=== PATIENT | male | born 1985 | race Caucasian/White ===

== ENCOUNTER 2023-09-04 04:21 | Observation (INO) | payer OTHER, SELFPAY ==
[2023-09-03 22:37] VITALS: BP 140/99
[2023-09-03 22:51] LABS: % Basophils 0.4 % (0-2); % Eosinophils 8.1 % (0-6); % Immature Granulocytes 0.6 % (0-0.5); % Neutrophils 43.9 % (42.2-75.2); Absolute Eosinophils 0.4 10^3/uL (0-0.7); Absolute Lymphocytes 1.8 10^3/uL (1.2-3.4); Absolute Monocytes 0.6 10^3/uL (0.1-0.6); Absolute Neutrophils 2.2 10^3/uL (1.4-6.5); Hemoglobin 11.2 g/dL (13.0-18.0); Mean Corp Hgb Conc. 33.9 g/dL (33.0-37.0); Mean Corpuscular Volume 82.5 fL (80.0-94.0); Mean Platelet Volume 8.9 fL (7.4-10.4); Nucleated Red Blood Cells % 0 % (-); Platelet Count 244 10^3/uL (130-400); Red Cell Dist. Width 17.2 % (11.5-14.5); White Blood Cell Count 5.1 10^3/uL (4.8-10.8)
[2023-09-03 23:11] LABS: ALT (SGPT) 37 U/L (0-50); AST (SGOT) 34 U/L (17-59); Albumin 3.5 g/dl (3.5-5.0); Alkaline Phosphatase 288 U/L (38-126); Blood Urea Nitrogen 21 mg/dl (9-20); Carbon Dioxide 24 mmol/L (22-30); Chloride 100 mmol/L (98-107); Glucose 94 mg/dl (70-99); Potassium 3.7 mmol/L (3.5-5.1); Sodium 135 mmol/L (135-145); Total Protein 7.6 g/dl (6.3-8.2); eGFR > 60.00
[2023-09-04] VITALS (9 sets, daily range): BP systolic 99–134; BP diastolic 58–99; BMI 18.6
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
[2023-09-04] MEDS: NICODERM TRANSDERMAL 21 MG TRANSDERM (05:10)
[2023-09-04] MEDS: XANAX 0.5 MG PO (05:11)
[2023-09-04 06:20] LABS: Hematocrit 33.4 % (39.0-52.0); Mean Corp Hgb Conc. 32.9 g/dL (33.0-37.0); Mean Corpuscular Hgb 28.1 pg (27.0-31.0); Mean Corpuscular Volume 85.4 fL (80.0-94.0); Mean Platelet Volume 9.1 fL (7.4-10.4); Platelet Count 205 10^3/uL (130-400); Red Blood Cell Count 3.91 10^6/uL (4.70-6.10); Red Cell Dist. Width 17.1 % (11.5-14.5); White Blood Cell Count 3.9 10^3/uL (4.8-10.8)
[2023-09-04 06:54] LABS: Blood Urea Nitrogen 19 mg/dl (9-20); Calcium 8.7 mg/dl (8.4-10.2); Carbon Dioxide 21 mmol/L (22-30); Chloride 101 mmol/L (98-107); Estimated Creatinine Clearance 70 ml/min; Glucose 138 mg/dl (70-99); HDL Cholesterol 29 mg/dl; LDL Cholesterol, Calculated 105 mg/dl; Potassium 3.5 mmol/L (3.5-5.1); Sodium 134 mmol/L (135-145); Total Cholesterol 159 mg/dl (50-199); Triglyceride 127 mg/dl (10-149); Very Low Density Lipoprotein 25 mg/dl (0-30); eGFR > 60.00
[2023-09-04 07:55] LABS: Urine Albumin 1+ (Neg - Trace); Urine Bilirubin Negative (Negative); Urine Character Slightly Cloudy (Clear); Urine Color Yellow; Urine Glucose Negative (Negative); Urine Ketone Negative (Negative); Urine Leukocyte 2+ (Negative); Urine Nitrite Negative (Negative); Urine Occult Blood 4+ (Negative); Urine Urobilinogen Negative (Neg - 1+); Urine pH 6.5 (5.0-9.0)
[2023-09-04] MEDS: LOW STRENGTH ASPIRIN 81 MG PO (08:11)
[2023-09-04 08:12] LABS: Amphetamines Positive (Negative); Methamphetamines Positive (Negative); Phencyclidine Negative (Negative)
[2023-09-04 08:13] LABS: Barbiturates Negative (Negative); Benzodiazepines Negative (Negative); Buprenorphine Negative (Negative); Cocaine Negative (Negative); Marijuana Positive (Negative); Methadone Negative (Negative); Opiates Negative (Negative); Tricyclic Antidepressants Negative (Negative)
[2023-09-04 08:40] LABS: Fentanyl, Urine Negative (Negative)
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
[2023-09-04 08:51] LABS: Urine Red Blood Cell 70-80 /HPF (0-2)
[2023-09-04 08:52] LABS: Urine White Cell 70-80 /HPF (0-5)
[2023-09-04 08:55] LABS: Urine Bacteria Few (Negative)
--- NOTE | 2023-09-04 09:54 | CON.NEURO ---
Addendum entered and electronically signed by Qasim Hong MD 09/04/23 14:33:
Addendum: Past medical history: Right upper extremity brachial plexopathy (childbirth trauma), acute kidney injury, urogenital gonorrhea, HIV positive, generalized anxiety disorder, transgender, right upper extremity reconstructions x 5,
nephrolithiasis
Social history: Smoker, daily marijuana. Alcohol none. Urine drug screen positive for methamphetamines. Family history: Reviewed and noncontributory
Original Note:
Neuro Assessment/Plan
Assessment
IMPRESSIONS/RECOMMENDATIONS:
Abrupt change in speech
Functional in nature based on variability crescendo decrescendo nature and improvement with distractibility. Additionally, the fact that content declines or improves at times is also suggestive of a functional abnormality
Plan
agree with with speech evaluation
Should the problem continue beyond the next 48 hours, patient may benefit from neuropsychological evaluation and therapy as outpatient
Check blood work for additional metabolic abnormalities
Single left prefrontal lesion on MRI of brain is not consistent with an abnormality producing symptomatology, nor does it appear to be acute
Supportive care for the patient's right upper extremity trauma associated with brachial plexopathy
Supportive care for the patient's bilateral lateral femoral continuous nerve distribution numbness
Will continue to follow as needed. Thank you.
Consultation
Order
Date of Consultation: 09/04/23
Requesting Provider:
Reason for Consult:
Subjective/Objective
Subjective Data
Date of Service: September 04, 2023
Left-handed
Patient was recently discharged from this hospital due to sudden onset acute renal insufficiency and obstructive uropathy. Patient was found to have urogenital gonorrhea and was HIV positive in addition to having positivity for amphetamines and
methamphetamines. Subsequently, patient returned to this hospital's emergency department with acute aphasia beginning 2 days ago. Patient has described difficulty with speech as reverting to that of a second-grader and having reduced ability to
speak full sentences. The problem is described as variable without known modifying factors and without clear associated symptoms. Specifically, there is no difficulty with reading or writing or understanding others. At times expression of speech
is returned to normal, this is unusual however. No prior episodes. The patient reports no recent social stressors.
Objective Data
Vital Signs
Temp Pulse Resp BP Pulse Ox
37.7 C 121 21 114/68 98
09/03/23 22:37 09/04/23 06:00 09/04/23 06:00 09/04/23 06:00 09/04/23 06:00
Lab Results
09/04/23 06:01
09/04/23 06:01
Sodium 134 mmol/L (135-145) L 09/04/23 06:01
Potassium 3.5 mmol/L (3.5-5.1) 09/04/23 06:01
BUN 19 mg/dl (9-20) 09/04/23 06:01
Glucose 138 mg/dl (70-99) H 09/04/23 06:01
Calcium 8.7 mg/dl (8.4-10.2) 09/04/23 06:01
LDL Cholesterol, Calc 105 mg/dl 09/04/23 06:01
Ur Buprenorphine Negative (Negative) 09/04/23 07:39
Patient Allergies
No Known Allergies Allergy (Verified 09/03/23 22:40)
Modified Bergen Score (MRS)
-
MRS Score:
Review of Systems
-
History Source: Patient
All other systems: Reviewed and negative
EENT: Negative Decreased Vision or Swallowing Difficulty
Respiratory: Negative Trouble Breathing
Cardiac: Negative Chest Pain
Abdomen/GI: Negative Incontinence of Stool
Genitourinary: Incontinence
Musculoskeletal: Back Pain; Negative Neck Pain
Neuro: Negative Dizzy or Headache
Physical Exam
-
General: No Apparent Distress and Appears Stated Age
Eyes: OU Absent Papilledema, Round OU, [place] Conjunctivae and No Ptosis
HEENT: Anicteric and Moist Mucous Membranes
Neck: Full Range of Motion
Respiratory: No Dyspnea
Cardiac: No JVD
GI: Non-distended
Extremities: No Clubbing, No Cyanosis, No Edema and Other (Loss of bulk in the right upper extremity approximately less than distally)
Psych: Negative Intact Judgement/Insight
Extended Neurological Exam
Mood & Affect: Anxious and Other (Mildly histrionic)
Attention Span & Concentration: Awake, Alert, Interactive and No Difficulty with 2 Step Request
Memory: Unremarkable
Tremor: Hand Tremor Absent and Head Tremor Absent
Speech: Quantity Unremarkable and Other (Clear words, variably telegraphic, at times childish and agrammatical at times)
Cranial Nerve II: Left Eye: Pupillary Reactivity Unremarkable, Pupillary Size Unremarkable and Visual Bolden Intact
Cranial Nerve II: Right Eye: Pupillary Reactivity Unremarkable, Pupillary Size Unremarkable and Visual Bolden Intact
Cranial Nerves III, IV, : Extraocular Movement: Extraocular Movement Full in all Directions
Cranial Nerve VII: Facial Symmetry: Normal Facial Symmetry
Cranial Nerve VIII: Hearing: Unremarkable Hearing to Normal Conversational Volume
Cranial Nerves IX, X: Palate Movement: Palate Elevation Symmetric
Cranial Nerve XI: Shoulder Shrug: Reduced on Right; Negative Reduced on Left
Cranial Nerve XII: Tongue Protusion: Midline
Muscle Strength, Overall: Otherwise Intact and Other (Unable to extend right upper extremity which maintains position of flexed posture at both elbow and wrist)
Muscle Bulk & Tone: Tone Unremarkable and Other (Other than right upper extremity, bulk is intact)
Pronator Drift: No Drift in Upper Extremities
Deep Tendon Reflexes: Trace Throughout
Touch Sensation: Unremarkable and Double Simultaneous Stimulation Unremarkable
Coordination: [id number] Testing Unremarkable and Unable to Assess (Right upper extremity due to the patient being unable to adequately flex the right upper extremity)
Babinski Sign: Absent Bilaterally
Gait & Station: Up from Seated Without Problem and Wide Based; Negative Up from Lying with Difficulty
Data Reviewed
-
MRI Head: Pending and Image Reviewed
Labs: Report Reviewed
Reviewed with: Nurse, Nurse Practioner and Patient
Old Records: Summarized
Medications
-
Active Medications
Generic Name Dose Route Start Last Admin
Trade Name Freq PRN Reason Stop Dose Admin
Acetaminophen 650 mg 09/04/23 05:57
Acetaminophen 325 Mg Tablet PO 10/02/23 05:56
Q4HPRN PRN
mild pain/GOULD/temp> 100.4F
Aspirin 81 mg 09/04/23 08:00 09/04/23 08:11
Aspirin 81 Mg Chewable Tablet PO 10/02/23 07:59 81 mg
DAILY BEKAH Administration
Enoxaparin Sodium 30 mg 09/04/23 18:00
Enoxaparin Sodium 30 Mg/0.3 Ml Syringe SC 10/02/23 17:59
QPM BEKAH
Lorazepam 1 mg 09/04/23 07:34
Lorazepam 1 Mg Tablet PO 10/02/23 07:33
ONCE PRN PRN
MRI
Home Medications
Medication Instructions Recorded
acetaminophen 500 mg tablet 1,000 mg PO BIDPRN PRN mild pain 09/04/23
(Tylenol Extra Strength)
--- NOTE | 2023-09-04 12:33 | PTOTSP ---
Speech Therapy Assessment
Oropharyngeal function appears intact at the bedside. Speech is fluent/intelligible in conversation however agrammatical with 'telegraphic-like' verbal output. No dysarthria or aphasia. Able to communicate wants/needs/ideas etc.
Recommend continue regular solids/thin liquids. Standard aspiration precautions. Meds oral per pt preference. No further acute STRINGED INSTRUMENT REPAIRER needs. STRINGED INSTRUMENT REPAIRER signing off. Please reconsult as needed
[2023-09-04] MEDS: NICODERM TRANSDERMAL 14 MG TRANSDERM (14:51)
[2023-09-04] MEDS: TYLENOL 650 MG PO (14:51)
[2023-09-04] MEDS: XANAX 0.25 MG PO (15:18)
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
[2023-09-04] MEDS: LOVENOX 30 MG SC (18:39)
--- NOTE | 2023-09-04 20:18 | PTCARENOTE ---
Pt arrived aprox 1430 from ED with two friends/family present. Admission and assessment complete. Pt NIH is 4. Pt deficit is speech/aphasia/Word finding difficultly that comes and goes. Pt using white board when needed. Pt asking for nicotine patch
and xanax to be ordered. Dr Joshua notified. Tylenol given for headache. Pt instructed to ring for assistance.
[2023-09-04] MEDS: ROXICODONE 5 MG PO (21:51)
[2023-09-05] VITALS (7 sets, daily range): BP systolic 112–133; BP diastolic 63–77; BMI 17.8
--- NOTE | 2023-09-05 04:00 | PTCARENOTE ---
Pt with c/o 9/10 pain and swelling in BLLE. From ankle to below knee pts legs are bright red and hot, which is a change. L>R. EXPORT TRAFFIC DEPARTMENT MANAGER aware, Dilaudid ordered. Will continue to follow plan of care.
[2023-09-05] MEDS: DILAUDID 0.5 MG IV (04:54)
[2023-09-05] MEDS: BENADRYL 50 MG PO (08:50)
[2023-09-05] MEDS: ROXICODONE 5 MG PO ×4 (08:50→23:57)
[2023-09-05] MEDS: NICODERM TRANSDERMAL 14 MG TRANSDERM (08:51)
[2023-09-05] MEDS: LOW STRENGTH ASPIRIN 81 MG PO (08:51)
--- NOTE | 2023-09-05 10:40 | CM ---
CM following re: discharge planning.
Reviewed pt's chart, met with pt and pt's friend Rocco at bedside.
Patient is a 38 year old transgender MTF, admitted with OBS status and primary concerns of aphagia. OBS status explained to the pt and her friend, both expressed understanding, OBS letter signed, placed on chart, pt has a copy.
Pt is well known to this CM from previous admission, lives with a friend Rocco in an 1SH, 1 step to enter and 12 steps to get to the basement. Pt reports she can walk but not able to take steps independently and she will need some help at home. Pt
reports she is active with [facility]. During entire interview, pt has been anxiously asked to have services at home and pt was not able to clarify what particular services she needs. CM explained to pt and her friend Rocco regarding [employer]
insurance benefits and they will reach out to [facility] to talk to an assigned correctional case records supervisor to enrol the pt to services that pt needs and pt is eligible.
Pt reports she did decline SNF level of care during last admission and pt stated she is not interested to go to a SNF and again, pt stated she will need services at home. Pt's friend Rocco confirmed he will call [facility] to talk to pt's case
photo lab manager.
Pt stated she had [facility] prior to admission and she would like to resume [facility] upon the discharge.
Pt stated her mother will be here tomorrow and she will ask her mother to meet with me to discuss pt's concerns regarding services.
PCP: Dr. El Leos
Pharmacy: [facility].
D/C plan: home with [facility], family/friend support and to follow up with [employer] insurance regarding community based services. Friend to transport at discharge.
CM will follow with discharge plan updates as hospitalization progresses
[2023-09-05 10:46] LABS: Hematocrit 35.4 % (39.0-52.0); Hemoglobin 11.7 g/dL (13.0-18.0); Mean Corp Hgb Conc. 33.1 g/dL (33.0-37.0); Mean Corpuscular Hgb 28.1 pg (27.0-31.0); Mean Corpuscular Volume 85.1 fL (80.0-94.0); Mean Platelet Volume 9.1 fL (7.4-10.4); Platelet Count 193 10^3/uL (130-400); Red Blood Cell Count 4.16 10^6/uL (4.70-6.10); Red Cell Dist. Width 16.9 % (11.5-14.5); White Blood Cell Count 4.5 10^3/uL (4.8-10.8)
[2023-09-05 11:11] LABS: Blood Urea Nitrogen 13 mg/dl (9-20); Calcium 8.6 mg/dl (8.4-10.2); Carbon Dioxide 26 mmol/L (22-30); Chloride 101 mmol/L (98-107); Estimated Creatinine Clearance 74 ml/min; Glucose 96 mg/dl (70-99); Magnesium 1.9 mg/dl (1.6-2.3); Potassium 3.9 mmol/L (3.5-5.1); Sodium 132 mmol/L (135-145); Uric Acid 8.7 mg/dl (3.5-8.5); eGFR > 60.00
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
[2023-09-05] MEDS: XANAX 0.25 MG PO (12:21)
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
[2023-09-05] MEDS: LOVENOX 30 MG SC (17:21)
[2023-09-05] MEDS: TYLENOL 650 MG PO (23:59)
[2023-09-06 06:58] LABS: Hematocrit 39.1 % (39.0-52.0); Mean Corp Hgb Conc. 33.2 g/dL (33.0-37.0); Mean Corpuscular Hgb 28.1 pg (27.0-31.0); Mean Corpuscular Volume 84.6 fL (80.0-94.0); Mean Platelet Volume 9.7 fL (7.4-10.4); Platelet Count 205 10^3/uL (130-400); Red Blood Cell Count 4.62 10^6/uL (4.70-6.10)
[2023-09-06 07:00] VITALS: BP 97/57
[2023-09-06 07:20] LABS: Blood Urea Nitrogen 15 mg/dl (9-20); Carbon Dioxide 19 mmol/L (22-30); Chloride 104 mmol/L (98-107); Estimated Creatinine Clearance 82 ml/min; Glucose 102 mg/dl (70-99); Potassium 4.7 mmol/L (3.5-5.1); Sodium 131 mmol/L (135-145); eGFR > 60.00
[2023-09-06] MEDS: LOW STRENGTH ASPIRIN 81 MG PO (09:58)
[2023-09-06] MEDS: NICODERM TRANSDERMAL 14 MG TRANSDERM (09:58)
[2023-09-06 11:00] VITALS: BP 104/69
[2023-09-06] MEDS: XANAX 0.25 MG PO ×2 (11:14→21:12)
[2023-09-06] MEDS: ROXICODONE 5 MG PO ×2 (11:14→17:19)
[2023-09-06] MEDS: TYLENOL 650 MG PO ×2 (11:14→21:12)
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
--- NOTE | 2023-09-06 12:49 | PTCARENOTE ---
PT co pain and anxiety. given PRN meds for problem. Pt resting in room at this time
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
--- NOTE | 2023-09-06 14:19 | W.DCSUMMARY ---
Discharge Summary
Discharge Data
Date of Admission: 09/04/23
Date of Discharge: 09/06/23
-
Pending Results: No
Hospital Course
Principal Diagnosis:
Subjective expressive aphasia/garbled speech, likely conversion versus somatization disorder�
HIV positive state
Chronic Diagnoses:�
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
Generalized anxiety disorder
Transgender male to female
Mild Protein Calorie Malnutrition, BMP 18
Consultations:�
Psychiatry
Infectious disease
Procedures:�
None
Clinical course:�
This is a 38 year old male to male to female transgender with past medical history as stated above, who presented with speech difficulty. Intermittently, she would not be able to talk and could only communicate through writing.
Problem 1:
Subjective expressive aphasia/garbled speech, likely conversion versus somatization disorder.
Her UDS was positive for amphetamine/methamphetamine/marijuana.
Her MRI brain showed no acute intracranial abnormality and her CTA was unremarkable.
She was cleared for regular diet per speech evaluation.
She was recommended to follow-up with psychiatry outpatient to address her psychological factors.
Problem 2:
HIV Positive state.
She was seen by ID and was counseled on diagnosis of HIV.
CD4 count, hepatitis serology, RPR were sent, which she can follow-up outpatient with ID.
She has been informed to follow-up with ID closely for HIV treatment plan.
As for the rest of her medical problems, they were stable during her hospital stay.
Discharge Plan
-
Patient Disposition: Home with Home Care
Discharge Diagnosis/Procedures: Expressive Aphasia/garbled speech possible related somatization disorder; HIV Positive
Condition: Fair
Diet: As tolerated
Activity: As tolerated
Driving Restrictions: Not until seen by your Dr
Activity Restrictions/Additional Instructions:
Follow up with ID closely for HIV treatment plan.
Follow up with Psychiatry outpatient to address psychological factors.
Referrals:
El Perez MD [Family Provider] - in less than 1 week
Prescriptions:
Continued
acetaminophen [Tylenol Extra Strength] 500 mg Tablet
1,000 mg PO BIDPRN PRN (Reason: mild pain)
Discharge Orders:
Discharge Patient (As Directed); Ordered 09/06/23
Ordered By: Corina Joshua
--- NOTE | 2023-09-06 15:12 | W.PN.UPDATE ---
Update Note
Progress Note Update
Pt seen for psychiatric clearance for discharge. Today, pt is conversant, not have any difficulties expressing her thoughts or speech problems. Pt states she abruptly lost the ability to speak in mid-conversation, not associated with any specific
stressor. Pt states she has been through much more stressful times in the past. Pt also reports she has had therapy off and on for most of her life and knows her mind. Pt and friend feel they have unanswered questions about her neurological
work-up, and are concerned if pt has return of symptoms at home. She rents a room, has roommate, but is often there alone. Pt states she is still weak/deconditioned from previous extended admission 2 weeks ago, still not able to walk up stairs per
her report. Pt denies significant depression or SI. Pt calm, cooperative, with good eye contact, appropriate affect, with no signs of psychosis. Pt newly diagnosed HIV+ from testing last admission, results after discharge.
Imp: Unspecified anxiety R/o adjustment d/o
Unexplained neurological symptoms
Rec: Pt psychiatrically cleared for discharge, though she continues to have concerns about her unexplained symptoms
[2023-09-06 15:24] VITALS: BP 96/65; PULSE 77; O2SAT 98
--- NOTE | 2023-09-06 15:27 | CM ---
CM following re: discharge planning.
Reviewed pt's chart, met with pt and pt's friend at bedside.
Discharge order noted. Both pt and his friend are aware. Pt expressed his anxious feelings regarding having services at home. Pt advised to call [facility] to request community based services. Also, CM provided pt with [facility] phone number to check on available services pt qualified.
Psychiatrist evaluation noted.
PT evaluation noted - home PT recommended. Pt is aware and pt preferred to resume services with [facility]. A referral to [facility] made.
Please fax discharge instructions to [facility] at [phone].
D/C plan: home with [facility], follow up with [facility] and [facility] for community based services. Mother to transport.
Nom other discharge needs identified.
[2023-09-06 16:11] VITALS: BP 112/74
--- NOTE | 2023-09-06 16:47 | PTCARENOTE ---
PT for DC today. PT verbalized to me yesterday and today that she would like to go to SNF or stay in hospital because she is not back to her baseline yet. Pt is unable to do steps independently and most of her ADL's independently (as per patient).
PT stated she has VN two days a week but that this was not enough . She would use food delivery services to get her food but the food would spoil on the front porch because pt did not have anyone to bring food up to living area and there were many
days she would not have any food to eat. PT cachectic and emaciated appearing at present. PT very concerned about food sources, PT very concerned about needing increased care or assistance with ADLS. PT is requesting to have someone come out
every day to help with light things. PT does not have a ride home so i was unable to discharge pt. was notified and is aware. Charge nurse aware
[2023-09-06] MEDS: LOVENOX 30 MG SC ×2 (17:15→17:20)
[2023-09-06 19:45] VITALS: BP 99/57
[2023-09-06] MEDS: BENADRYL 25 MG PO (21:52)
--- NOTE | 2023-09-06 22:00 | PTCARENOTE ---
Pt complained of itching and redness in bilateral feet. Pt stated, 'This happen sometimes and Benadryl helps'. [employer] made aware, new order provided, see MAR.
[2023-09-06 23:19] VITALS: BP 107/72
[2023-09-07 03:35] VITALS: BP 120/80
[2023-09-07 06:00] VITALS: BMI 17.8
[2023-09-07 06:07] LABS: Hematocrit 32.9 % (39.0-52.0); Hemoglobin 10.9 g/dL (13.0-18.0); Mean Corp Hgb Conc. 33.1 g/dL (33.0-37.0); Mean Corpuscular Hgb 27.5 pg (27.0-31.0); Mean Corpuscular Volume 82.9 fL (80.0-94.0); Mean Platelet Volume 9.3 fL (7.4-10.4); Platelet Count 150 10^3/uL (130-400); Red Blood Cell Count 3.97 10^6/uL (4.70-6.10); Red Cell Dist. Width 16.6 % (11.5-14.5)
[2023-09-07 06:35] LABS: Blood Urea Nitrogen 16 mg/dl (9-20); Calcium 8.6 mg/dl (8.4-10.2); Carbon Dioxide 25 mmol/L (22-30); Chloride 99 mmol/L (98-107); Estimated Creatinine Clearance 82 ml/min; Glucose 100 mg/dl (70-99); Potassium 3.7 mmol/L (3.5-5.1); Sodium 132 mmol/L (135-145); eGFR > 60.00
[2023-09-07 07:00] VITALS: BP 126/80
[2023-09-07] MEDS: NICODERM TRANSDERMAL 14 MG TRANSDERM (09:04)
[2023-09-07] MEDS: LOW STRENGTH ASPIRIN 81 MG PO (09:05)
[2023-09-07 09:51] VITALS: BP 108/74
[2023-09-07 11:00] VITALS: BP 99/62
[2023-09-07] MEDS: ROXICODONE 5 MG PO (11:23)
[2023-09-07] MEDS: TYLENOL 650 MG PO (11:23)
--- NOTE | 2023-09-07 11:47 | CM ---
Addendum entered by Deedee Esparza 09/07/23 14:37:
Bedside meeting with pt, friend/Rocco and mother per her request
Discharge planning and resources reviewed with mother
Provided MH resources for [facility]
Original Note:
CM reviewed chart and noted dc order
Discussion with nursing and OT- pt requesting BIT SHARPENER assistance
Call with Chaparrita/Adrianne- konstantin for service with [facility], requested SW for waiver application and BIT SHARPENER support
Per Chaparrita, authorization for BIT SHARPENER will need to submitted to [place] [facility] after first PT visit
Bedside meeting with pt and friend/Rocco
Rocco resides in [facility] and unable to provide daily assistance
CM explained BIT SHARPENER and SW request through [facility]
[employer] info provided as well as info for waiver services application
Private duty list also provided
Friend/Rocco will assist pt with waiver application and process
VN order requested and on chart
Updated clinicals provided to [facility] via [facility]
Discharge Disposition- home with [facility] via friend/family transport
[facility] Office fax- [phone]
[2023-09-07] MEDS: ATIVAN 1 MG PO (13:42)
[2023-09-07 15:19] LABS: CD4 % of Cells Analyzed 15 % (32-64); CD4 Absolute Count 225 cells/uL (430-1800)
--- NOTE | 2023-09-07 18:14 | W.PN.UPDATE ---
Update Note
Progress Note Update
Patient seen.
Hospital course discussed including patient's mother at the bedside
All questions answered.
Medically stable for discharge
[2023-09-07 19:09] LABS: Hepatitis B Surface Antigen Negative (Negative)
[2023-09-07 19:27] LABS: Hepatitis B Core Ab, Total Negative (Negative); Hepatitis B Surface Antibody Negative; Hepatitis C Antibody Negative (Negative)
[2023-09-07 19:54] LABS: Hepatitis A Antibody, Total Negative (Negative)
[2023-09-08 00:25] LABS: Cryptococcus Antigen Negative (Negative)
[2023-09-08 15:31] LABS: Syphilis/T. pallidum Ab Reflex Negative (Negative)
== END 2023-09-07 16:34 | disposition home health service (06) ==
LOC: 3 WEST ACU 04:21
PROVIDERS: Emergency Medicine; Internal Medicine; ADMITTING PHYSICIAN Hospitalist; ATTENDING PHYSICIAN Internal Medicine; CONSULT PHYSICIAN Internal Medicine Infectious Disease; CONSULT PHYSICIAN Psychiatry & Neurology Psychiatry; EMERGENCY PHYSICIAN Student in an Organized Health Care Education/Training Program; FAMILY PHYSICIAN Family Medicine; OTHER PHYSICIAN Psychiatry & Neurology Neurology
DX: R47.01 Aphasia (principal); Z21 Asymptomatic human immunodeficiency virus [HIV] infection status; F64.0 Transsexualism; F17.200 Nicotine dependence, unspecified, uncomplicated; F41.9 Anxiety disorder, unspecified; E44.1 Mild protein-calorie malnutrition; F32.A Depression, unspecified; F41.1 Generalized anxiety disorder; R64 Cachexia; R62.7 Adult failure to thrive; Z68.1 Body mass index [BMI] 19.9 or less, adult; Z87.440 Personal history of urinary (tract) infections; Z87.442 Personal history of urinary calculi
CPT/HCPCS: 70496; 70551; 73630; 80048; 80053; 80061; 80306; 80307; 81003; 81015; 83735; 84550; 85025; 85027; 86361; 86704; 86706; 86708; 86780; 86803; 87086; 87327; 87340; 92523; 92610; 93005; 97162; 97166; 99291; 99406; G0378; Q9967

== ENCOUNTER 2024-04-24 23:51 | Inpatient (IN) | payer OTHER, SELFPAY ==
[2024-04-24] VITALS (18 sets, daily range): BP systolic 74–128; BP diastolic 38–92; BMI 18.6
--- NOTE | 2024-04-24 19:56 | ED.GENMED ---
History of Present Illness
<Wilma Rebolledo, SAP TRAINER - Last Filed: 04/25/24 13:08>
General
Chief Complaint: Weakness
Source: patient
Exam Limitations: none
Time Seen by Provider: 04/24/24 19:42
History of Present Illness
History of Present Illness:
39 yo male to female transgender presents moaning, feels the need to urinate but can't, 'my bladder, my bladder,' 'pissing blood for 2 days.' Denies CP, SOB, abdominal pain. Feels nauseous but has not vomited.
States he feels the same as he did on admission in August when 'my potassium was high.'
Pt HIV positive, newly diagnosed on admission here 08/2023. States she is not taking any medicine but 'I'm supposed to.'
Hx anxiety/depression RUE brachial plexus.
Past History
<Wilma Rebolledo, SAP TRAINER - Last Filed: 04/25/24 13:08>
Past History
ED Past Medical History: Psychiatric (Anxiety, depression), Other (Gender change, brachial plexus injury since - R) and Other (HIV positive)
ED Past Surgical History: Orthopedic
Social History
Tobacco: Smoker
Alcohol: Occasional
Drug: Former user
Personal: Single
Living: with roommate
Review of Systems
<Wilma Rebolledo, SAP TRAINER - Last Filed: 04/25/24 13:08>
Review of Systems
Allergies reviewed?: Yes
All Other Systems: ROS reviewed and negative except as documented in HPI and ROS
Constitutional: Reports fatigue
Respiratory: Denies trouble breathing
Cardiac: Denies chest pain
ABD/GI: Reports nausea; Denies vomiting
: Reports difficulty voiding and bleeding (states he's peeing blood past 2 days.)
Musculoskeletal: Denies edema
Neurological: Denies headache
Phy Exam
<Wilma Rebolledo, SAP TRAINER - Last Filed: 04/25/24 13:08>
Physical Exam
Physical Exam:
GENERAL: Anxious, moaning. A&Ox3.
CONSTITUTIONAL: Hypothermic 96.0 R
EYES: PERRL, conjunctivae normal
Neck: Supple
ENMT: moist mucus membranes, Pharynx nl, Poor dentition, decaying teeth
RESPIRATORY: Regular respirations, nonlabored, lungs clear. Tachypneic RR 28
CARDIOVASCULAR: Regular rate and rhythm, no murmurs, no rubs.
GI: Soft, nontender, nondistended, normal BS
MUSCULOSKELETAL: Moves with ease. Extremities cool.
SKIN: Cool, pale, dry
PSYCH: Anxious mood and affect. Responding appropriately to questions.
NEUROLOGIC: Awake, alert and oriented. No focal neurological deficits
Course
<Wilma Rebolledo, SAP TRAINER - Last Filed: 04/25/24 13:08>
Orders/Labs/Results
Orders:
Orders
04/24/24 19:49
0.9% Sodium Chloride 1000 ml [Nss] 1,000 ml IV BOLUS
04/24/24 19:55
Electrocardiogram (*1) Urgent
Reason for Study: Tachycardia
EKG- Treatment ONCE
04/24/24 19:57
CD4 Leukocyte Marker Profile [S] Urgent
Complete Blood Count/With Diff Urgent
Lactic Acid Q4H
Comment: CANCEL 2nd LACTIC ACID IF 1st LACTIC ACID IS LESS THAN 2
04/24/24 20:38
Basic Metabolic Panel Urgent
Blood Culture Routine
RUIZ Source: Blood/Venous
Specimen Description:
04/24/24 21:15
0.9% Sodium Chloride 1000 ml [Nss] 1,000 ml IV BOLUS
04/24/24 21:24
Drug Screen, Urine [Urine Drug Abuse Screen] Urgent
Date Specimen was Collected: 04/24/24
Time Specimen was Collected: 21:23
Fentanyl, Urine Urgent
Osmolality, Random Urine Urgent
Date Specimen was Collected: 04/24/24
Time Specimen was Collected: 21:23
Comment: ADD ON
Urinalysis Reflex To Culture Urgent
Date Specimen was Collected: 04/24/24
Time Specimen was Collected: 21:23
Urine Creatinine Urgent
Date Specimen was Collected: 04/24/24
Time Specimen was Collected: 21:23
Comment: ADD ON
Urine Microscopic Reflex Cult Urgent
Urine Protein Urgent
Date Specimen was Collected: 04/24/24
Time Specimen was Collected: 21:23
Urine Sodium Urgent
Date Specimen was Collected: 04/24/24
Time Specimen was Collected: 21:23
Comment: ADD ON
Urine Culture Urgent
RUIZ Source: U
Specimen Description:
Date Specimen was Collected: 04/24/24
Time Specimen was Collected: 21:23
04/24/24 21:37
CR Chest Portable - 1 View Urgent
Comment:
Reason For Exam: sepsis
Reason Study Needs to be Portable: Patient Unstable
04/24/24 21:40
Add On- LAB Urgent
Tests Added?: Mg
Add On- LAB Urgent
Tests Added?: urine drug screen
04/24/24 21:43
Venous Blood Gas Urgent
%Oxygen/Room Air: 21%
04/24/24 21:57
Piperacillin/Tazo 3.375 Gram [Zosyn] 3.375 gram in 50 ml IV NOW
04/24/24 22:00
Dextrose 5%/Water 1000 ml [D5w] 1,000 ml Sodium Bicarbonate 150 meq IV 100 mls/hr
04/24/24 22:10
Magnesium Urgent
Potassium Urgent
04/24/24 22:18
NEPHROLOGY CONSULT Urgent
Consulting Provider: Shonda Spears
Was physician already notified: Yes
Reason for consult: acute renal failure, Na 125, HIV, acidotic
04/24/24 22:21
COVID-19 Antigen Urgent
Source: Nasal Swab
Influenza A+B Rapid Molecular Urgent
RUIZ Source: Nasal Swab
Specimen Description:
04/24/24 22:40
Dextrose 50%-Water [Dextrose 50% Syringe] 12.5 grams IV [id number] PRN
Dextrose 50%-Water [Dextrose 50% Syringe] 25 grams IV NOW STA
Insulin Human Regular [Novolin R] 10 units IV NOW STA
Sodium Bicarbonate 50 meq IV NOW STA
Sodium Zirconium Cyclosilicate [Lokelma] 10 gram PO NOW STA
04/24/24 22:41
Bedside Glucose- Treatment DIRECTED
Bedside Glucose- Treatment ONCE
04/24/24 23:00
Flush (0.9% Sodium Chloride) [Flush (Nss)] See Dose Instructions IV PER PROTOCOL
04/24/24 23:04
Sodium Bicarbonate 50 meq IV NOW STA
Vancomycin [Vancocin] 1,500 mg 0.9% Sodium Chloride [Nss] 20 ml 0.9% Sodium Chloride 250 ml [Nss] 250 ml IV NOW
04/24/24 23:14
Admit/Transfer Patient As Directed
Co-Sign Provider:
Level of Care: Inpatient admission
Assign to:: ICU
Physician / Group: [email or web address]
Diagnosis: Life thretening hyperkalemia, profound Gap met acidosis , HIV, presumed sep
Reason for Hospitalization: Life thretening hyperkalemia, profound Gap met acidosis , HIV, presumed sep
Expected length of stay greater than two midnights?: Yes
ELOS- Estimated Length of Stay in days: 7
I certify the patient meets the requirements for IP care: Yes
04/24/24 23:21
Code Status As Directed
Resuscitation Status: Full Code
04/24/24 23:45
Calcium Gluconate 1 gram/100mL [Calcium Gluconate] 1 gram in 100 ml IV ONCE
04/25/24 00:03
BMP [Basic Metabolic Panel] Urgent
04/25/24 01:57
0.9% Sodium Chloride 1000 ml [Nss] 1,000 ml IV 120 mls/hr
VANCOMYCIN Pharmacy to Dose [VANCOCIN Pharmacy to Dose] 1 each Pharmacy To Prepare [Call Pharmacy To Prepare] 0 ml IV PER PROTOCOL
04/25/24 01:57
Consult Notification Routine
Specialty to Notify: Infectious Disease
Date consulting provider notified: 04/25/24
Time consulting provider notified: 08:55
Notified:: Provider
INFECTIOUS DISEASE CONSULT Routine
Consulting Provider: Xochilt Villatoro
Was physician already notified: No
Reason for consult: sepsis, HIV, profound acid base disorder
Activity As Directed
Activity Level: With Assistance
Intake/ Output As Directed
Frequency: Per unit guidelines
Vital Signs As Directed
Frequency: Per unit guidelines
DX Deep Vein Thrombosis Video Routine
04/25/24 04:00
Piperacillin/Tazo 2.25 Gram [Zosyn] 2.25 grams in 50 ml IV Q6H
04/25/24 04:11
Complete Blood Count/No Diff IN AM
Comprehensive Metabolic Panel IN AM
04/25/24 Breakfast
NPO
Allow oral meds: Yes
Allow clear liquids: Sips of Clears
NPO with Ice Chips: Yes
04/25/24 08:00
Heparin 5,000 units SC Q12
Abnormal Lab Results
04/24/24 04/24/24 04/24/24
19:57 20:38 21:24
WBC 14.9 H 10^3/uL
(4.8-10.8)
RBC 6.36 H 10^6/uL
(4.70-6.10)
MCV 69.7 L fL
(80.0-94.0)
MCH 24.4 L pg
(27.0-31.0)
RDW 16.9 H %
(11.5-14.5)
Plt Count 497 H 10^3/uL
(130-400)
Abs Immat Gran (auto) 0.4 H 10^3/uL
(0-0.05)
Absolute Neuts (auto) 12.0 H 10^3/uL
(1.4-6.5)
Absolute Monos (auto) 0.9 H 10^3/uL
(0.1-0.6)
Immature Gran % 2.6 H %
(0-0.5)
Neutrophils % 80.3 H %
(42.2-75.2)
Lymphocytes % 10.6 L %
(20.5-51.1)
VBG pH
VBG pCO2
VBG pO2
VBG HCO3
Sodium 125 L mmol/L
(135-145)
Potassium
Chloride 94 L mmol/L
(98-107)
Carbon Dioxide < 5 L* mmol/L
(22-30)
BUN 109 H* mg/dl
(9-20)
Creatinine 4.7 H* mg/dL
(0.7-1.3)
Glucose 104 H mg/dl
(70-99)
Magnesium
Urine Ketones Trace A
(Negative)
Ur Occult Blood Reflex 4+ A
(Negative)
Urine Nitrite (Reflex) Positive A
(Negative)
Urine Bilirubin 1+ A
(Negative)
Leukocyte Esterase Rfl 2+ A
(Negative)
Urine RBC >100 A /HPF
(0-2)
Urine Total Protein 512 H mg/dl
(0-12)
Urine Albumin (Reflex) 3+ A
(Neg - Trace)
Ur Amphetamines Screen Positive H
(Negative)
U Methamphetamines Scrn Positive H
(Negative)
U Marijuana (THC) Screen Positive H
(Negative)
POC Glucose
04/24/24 04/24/24 04/24/24
21:43 22:10 23:20
WBC
RBC
MCV
MCH
RDW
Plt Count
Abs Immat Gran (auto)
Absolute Neuts (auto)
Absolute Monos (auto)
Immature Gran %
Neutrophils %
Lymphocytes %
VBG pH 7.26 L
(7.32-7.43)
VBG pCO2 22 L mmHg
(35-48)
VBG pO2 94 H mmHg
(30-50)
VBG HCO3 9.9 L mmol/L
(22-27)
Sodium
Potassium 7.0 H* mmol/L
(3.5-5.1)
Chloride
Carbon Dioxide
BUN
Creatinine
Glucose
Magnesium 2.7 H mg/dl
(1.6-2.3)
Urine Ketones
Ur Occult Blood Reflex
Urine Nitrite (Reflex)
Urine Bilirubin
Leukocyte Esterase Rfl
Urine RBC
Urine Total Protein
Urine Albumin (Reflex)
Ur Amphetamines Screen
U Methamphetamines Scrn
U Marijuana (THC) Screen
POC Glucose 197 H mg/dl
(70-99)
04/24/24 19:57
09/15/24 22:10
Vital Signs
Initial and Last Documented VS:
Initial Vital Signs
Pulse Resp BP Pulse Ox
101 19 79/38 99
04/24/24 19:42 04/24/24 19:42 04/24/24 19:42 04/24/24 19:42
Last Documented Vital Signs
Temp Pulse Resp BP Pulse Ox
98.2 F 97 18 120/68 97
04/25/24 10:55 04/25/24 11:30 04/25/24 11:30 04/25/24 11:00 04/25/24 11:40
<Oz Herzog DO - Last Filed: 04/25/24 01:56>
Orders/Labs/Results
Orders:
Orders
04/24/24 19:49
0.9% Sodium Chloride 1000 ml [Nss] 1,000 ml IV BOLUS
04/24/24 19:55
Electrocardiogram (*1) Urgent
Reason for Study: Tachycardia
EKG- Treatment ONCE
04/24/24 19:57
CD4 Leukocyte Marker Profile [S] Urgent
Complete Blood Count/With Diff Urgent
Lactic Acid Q4H
Comment: CANCEL 2nd LACTIC ACID IF 1st LACTIC ACID IS LESS THAN 2
04/24/24 20:38
Basic Metabolic Panel Urgent
Blood Culture Routine
RUIZ Source: Blood/Venous
Specimen Description:
04/24/24 21:15
0.9% Sodium Chloride 1000 ml [Nss] 1,000 ml IV BOLUS
04/24/24 21:24
Drug Screen, Urine [Urine Drug Abuse Screen] Urgent
Date Specimen was Collected: 04/24/24
Time Specimen was Collected: 21:23
Fentanyl, Urine Urgent
Osmolality, Random Urine Urgent
Date Specimen was Collected: 04/24/24
Time Specimen was Collected: 21:23
Comment: ADD ON
Urinalysis Reflex To Culture Urgent
Date Specimen was Collected: 04/24/24
Time Specimen was Collected: 21:23
Urine Creatinine Urgent
Date Specimen was Collected: 04/24/24
Time Specimen was Collected: 21:23
Comment: ADD ON
Urine Microscopic Reflex Cult Urgent
Urine Protein Urgent
Date Specimen was Collected: 04/24/24
Time Specimen was Collected: 21:23
Urine Sodium Urgent
Date Specimen was Collected: 04/24/24
Time Specimen was Collected: 21:23
Comment: ADD ON
Urine Culture Urgent
RUIZ Source: U
Specimen Description:
Date Specimen was Collected: 04/24/24
Time Specimen was Collected: 21:23
04/24/24 21:37
CR Chest Portable - 1 View Urgent
Comment:
Reason For Exam: sepsis
Reason Study Needs to be Portable: Patient Unstable
04/24/24 21:40
Add On- LAB Urgent
Tests Added?: Mg
Add On- LAB Urgent
Tests Added?: urine drug screen
04/24/24 21:43
Venous Blood Gas Urgent
%Oxygen/Room Air: 21%
04/24/24 21:57
Piperacillin/Tazo 3.375 Gram [Zosyn] 3.375 gram in 50 ml IV NOW
04/24/24 22:00
Dextrose 5%/Water 1000 ml [D5w] 1,000 ml Sodium Bicarbonate 150 meq IV 100 mls/hr
04/24/24 22:10
Magnesium Urgent
Potassium Urgent
04/24/24 22:18
NEPHROLOGY CONSULT Urgent
Consulting Provider: Shonda Spears
Was physician already notified: Yes
Reason for consult: acute renal failure, Na 125, HIV, acidotic
04/24/24 22:21
COVID-19 Antigen Urgent
Source: Nasal Swab
Influenza A+B Rapid Molecular Urgent
RUIZ Source: Nasal Swab
Specimen Description:
04/24/24 22:40
Dextrose 50%-Water [Dextrose 50% Syringe] 12.5 grams IV [id number] PRN
Dextrose 50%-Water [Dextrose 50% Syringe] 25 grams IV NOW STA
Insulin Human Regular [Novolin R] 10 units IV NOW STA
Sodium Bicarbonate 50 meq IV NOW STA
Sodium Zirconium Cyclosilicate [Lokelma] 10 gram PO NOW STA
04/24/24 22:41
Bedside Glucose- Treatment DIRECTED
Bedside Glucose- Treatment ONCE
04/24/24 23:00
Flush (0.9% Sodium Chloride) [Flush (Nss)] See Dose Instructions IV PER PROTOCOL
04/24/24 23:04
Sodium Bicarbonate 50 meq IV NOW STA
Vancomycin [Vancocin] 1,500 mg 0.9% Sodium Chloride [Nss] 20 ml 0.9% Sodium Chloride 250 ml [Nss] 250 ml IV NOW
04/24/24 23:14
Admit/Transfer Patient As Directed
Co-Sign Provider:
Level of Care: Inpatient admission
Assign to:: ICU
Physician / Group: pauliey
Diagnosis: Life thretening hyperkalemia, profound Gap met acidosis , HIV, presumed sep
Reason for Hospitalization: Life thretening hyperkalemia, profound Gap met acidosis , HIV, presumed sep
Expected length of stay greater than two midnights?: Yes
ELOS- Estimated Length of Stay in days: 7
I certify the patient meets the requirements for IP care: Yes
04/24/24 23:21
Code Status As Directed
Resuscitation Status: Full Code
04/24/24 23:45
Calcium Gluconate 1 gram/100mL [Calcium Gluconate] 1 gram in 100 ml IV ONCE
04/25/24 00:03
BMP [Basic Metabolic Panel] Urgent
04/25/24 01:57
0.9% Sodium Chloride 1000 ml [Nss] 1,000 ml IV 120 mls/hr
VANCOMYCIN Pharmacy to Dose [VANCOCIN Pharmacy to Dose] 1 each Pharmacy To Prepare [Call Pharmacy To Prepare] 0 ml IV PER PROTOCOL
04/25/24 01:57
Consult Notification Routine
Specialty to Notify: Infectious Disease
Date consulting provider notified: 04/25/24
Time consulting provider notified: 08:55
Notified:: Provider
INFECTIOUS DISEASE CONSULT Routine
Consulting Provider: Xochilt Villatoro
Was physician already notified: No
Reason for consult: sepsis, HIV, profound acid base disorder
Activity As Directed
Activity Level: With Assistance
Intake/ Output As Directed
Frequency: Per unit guidelines
Vital Signs As Directed
Frequency: Per unit guidelines
DX Deep Vein Thrombosis Video Routine
04/25/24 04:00
Piperacillin/Tazo 2.25 Gram [Zosyn] 2.25 grams in 50 ml IV Q6H
04/25/24 04:11
Complete Blood Count/No Diff IN AM
Comprehensive Metabolic Panel IN AM
04/25/24 Breakfast
NPO
Allow oral meds: Yes
Allow clear liquids: Sips of Clears
NPO with Ice Chips: Yes
04/25/24 08:00
Heparin 5,000 units SC Q12
Abnormal Lab Results
04/24/24 04/24/24 04/24/24
19:57 20:38 21:24
WBC 14.9 H 10^3/uL
(4.8-10.8)
RBC 6.36 H 10^6/uL
(4.70-6.10)
MCV 69.7 L fL
(80.0-94.0)
MCH 24.4 L pg
(27.0-31.0)
RDW 16.9 H %
(11.5-14.5)
Plt Count 497 H 10^3/uL
(130-400)
Abs Immat Gran (auto) 0.4 H 10^3/uL
(0-0.05)
Absolute Neuts (auto) 12.0 H 10^3/uL
(1.4-6.5)
Absolute Monos (auto) 0.9 H 10^3/uL
(0.1-0.6)
Immature Gran % 2.6 H %
(0-0.5)
Neutrophils % 80.3 H %
(42.2-75.2)
Lymphocytes % 10.6 L %
(20.5-51.1)
VBG pH
VBG pCO2
VBG pO2
VBG HCO3
Sodium 125 L mmol/L
(135-145)
Potassium
Chloride 94 L mmol/L
(98-107)
Carbon Dioxide < 5 L* mmol/L
(22-30)
BUN 109 H* mg/dl
(9-20)
Creatinine 4.7 H* mg/dL
(0.7-1.3)
Glucose 104 H mg/dl
(70-99)
Magnesium
Urine Ketones Trace A
(Negative)
Ur Occult Blood Reflex 4+ A
(Negative)
Urine Nitrite (Reflex) Positive A
(Negative)
Urine Bilirubin 1+ A
(Negative)
Leukocyte Esterase Rfl 2+ A
(Negative)
Urine RBC >100 A /HPF
(0-2)
Urine Total Protein 512 H mg/dl
(0-12)
Urine Albumin (Reflex) 3+ A
(Neg - Trace)
Ur Amphetamines Screen Positive H
(Negative)
U Methamphetamines Scrn Positive H
(Negative)
U Marijuana (THC) Screen Positive H
(Negative)
POC Glucose
04/24/24 04/24/24 04/24/24
21:43 22:10 23:20
WBC
RBC
MCV
MCH
RDW
Plt Count
Abs Immat Gran (auto)
Absolute Neuts (auto)
Absolute Monos (auto)
Immature Gran %
Neutrophils %
Lymphocytes %
VBG pH 7.26 L
(7.32-7.43)
VBG pCO2 22 L mmHg
(35-48)
VBG pO2 94 H mmHg
(30-50)
VBG HCO3 9.9 L mmol/L
(22-27)
Sodium
Potassium 7.0 H* mmol/L
(3.5-5.1)
Chloride
Carbon Dioxide
BUN
Creatinine
Glucose
Magnesium 2.7 H mg/dl
(1.6-2.3)
Urine Ketones
Ur Occult Blood Reflex
Urine Nitrite (Reflex)
Urine Bilirubin
Leukocyte Esterase Rfl
Urine RBC
Urine Total Protein
Urine Albumin (Reflex)
Ur Amphetamines Screen
U Methamphetamines Scrn
U Marijuana (THC) Screen
POC Glucose 197 H mg/dl
(70-99)
04/24/24 19:57
04/24/24 22:10
Vital Signs
Initial and Last Documented VS:
Initial Vital Signs
Pulse Resp BP Pulse Ox
101 19 79/38 99
04/24/24 19:42 04/24/24 19:42 04/24/24 19:42 04/24/24 19:42
Last Documented Vital Signs
Temp Pulse Resp BP Pulse Ox
98.2 F 97 18 120/68 97
04/25/24 10:55 04/25/24 11:30 04/25/24 11:30 04/25/24 11:00 04/25/24 11:40
<Wilma Rebolledo SAP TRAINER - Last Filed: 04/25/24 13:08>
MDM/Problems Addressed
Differential Diagnosis Includes:
Dehydration, electrolyte imbalance, malnutrition,
Sepsis
MDM/Problems Addressed:
39 yo male to female transgender presents moaning, feels the need to urinate but can't, 'my bladder, my bladder,' 'pissing blood for 2 days.' Denies CP, SOB, abdominal pain. Feels nauseous but has not vomited.
Pt HIV positive, newly diagnosed on admission here 08/2023. States she is not taking any medicine but 'I'm supposed to.'
Hx anxiety/depression RUE brachial plexus.
Temp 96.0 R bear hugger warmer ordered
BP 79/48 IVF's infusing (pt cachectic BMI 18.5)may partially explain low BP
HR 110 sinus on monitor
Bladder scan: 34 cc
9:10 p.m.
Pt more calm, resting
EKG NSR
CBC WBC 14.9
CMP: Multiple abnormalities, case discussed with Dr. Herzog
Blood was hemolyzed so needed to redraw for K+
Pt remains stable, calm, sister at bedside.
10:15 p.m.
K+ hemolyzed for 3rd time, pending
VSS, pt mentating normally
Plan: Admit: Sepsis/UTI, metabolic acidosis, HIV noncompliant with meds, acute renal failure
Antibiotics, Bicarb drip infusing
Hospitalist and Nephrology notified of admission.
10:30 K+ 7.0 Insulin and D5 ordered
Critical care statement: A total of 40 minutes of critical care time was provided for this patient. This includes management of unstable vital signs, evaluation of the patient at bedside, reviewing the patient's pertinent medical records, discussion
with consultants, review of old EKGs and review of pertinent medical records. This time with separate from time utilized to perform the aforementioned documented procedures
Chronic conditions affecting care: Immunosuppressed (HIV ) and Psychiatric illness
<Wilma Rebolledo SAP TRAINER - Last Filed: 04/25/24 13:08>
*EKG
EKG Intrepretation Date: 04/24/24
Interpretation: abnormal
[place]: normal axis
Interval: normal interval
QRS Pattern: normal QRS
<Oz Herzog DO - Last Filed: 04/25/24 01:56>
*EKG
Interpreted by ED Provider?: Yes
Interpretation: abnormal
Rate: normal
Rhythm: sinus
Ischemia: non-specific ST changes
*Regional Account Executive Interpretation
Rate: normal
Interpretation: normal
Rhythm: sinus
*Critical Care Note
Total Time (30-74mins, 75-104mins- exclusive of procedures): 60-minute
Data Reviewed
Review of Other/Old Records Reveals: Labs (Prior labs show that the patient did have acute renal failure in the past) and Discharge Summary (Previous discharge summary reviewed, patient was diagnosed with HIV)
Source: patient and family
ED Attending Note
<Wilma Rebolledo SAP TRAINER - Last Filed: 04/25/24 13:08>
-
Portions of this chart may have been created with voice recognition software.� Occasional wrong word or��sound alike� substitutions may have occurred due to the inherent limitations of voice recognition software.
<Oz Herzog DO - Last Filed: 04/25/24 01:56>
ED Attending Note
Patient seen and examined by attending physician: Yes
I performed the substantive portion of visit, reviewed & personally made and approve the management plan that is documented in note by myself or BORA.: Yes
ED Attending Note:
39-year-old male to female transgender who presents with difficulty voiding and hematuria. The patient arrives cachectic and pale. Patient reports feeling just profoundly weak. Symptoms been ongoing for more than a week. Does have a history of
HIV. Admits he has not been taking his medications. Exam: Cachectic, atrophy of the right upper extremity noted. Pale. Blood pressure 101 systolic on my exam. Pulse ox 90%. Assessment and plan: Acute metabolic acidosis. Acute renal failure.
Acute hyperkalemia. Hyperkalemia meds given. Bicarb added to fluids. Case was discussed with nephrology. Nephrology did see the patient at bedside. Hemodynamically patient did respond to fluids. Also was little bit hypothermic so given history
of HIV that is untreated, treat with broad-spectrum antibiotics. Admit to ICU
Discharge Plan
Departure
Patient Disposition: Admit
Date of Disposition: 04/24/24
Time of Disposition: 22:13
Admit to: ICU
Presentation/result/management discussed w/ accepting MD/DO: Hospitalist
Condition: Critical
Discharge Problem:
Acute renal failure, Acute hyponatremia, Acute hyperkalemia, Metabolic acidosis, Severe sepsis
Interventions
Interventions:
*Risk Screen - Suicide Last Done: 04/25/24 02:13
*General Assessment Last Done: 04/24/24 20:01
*Neglect/Abuse Screening Last Done: 04/24/24 20:01
ED- Fall Risk Assessment Last Done: 04/24/24 23:45
*ED COVID-19 Vaccine History Last Done: 04/25/24 02:13
*Nursing Disposition Last Done: 04/25/24 00:30
ED- Cardiac Assessment Last Done: 04/24/24 23:45
ED-Male Genitourinary Assessment Last Done: 04/24/24 23:45
ED- Neurological Assessment Last Done: 04/24/24 23:45
ED- Pulmonary Assessment Last Done: 04/24/24 23:45
Discharge Date and Time
Discharge Date/Time: 04/25/24 00:30
[2024-04-24] MEDS: NSS 1000 IV ×2 (20:00→21:18)
[2024-04-24 20:04] LABS: % Basophils 0.3 % (0-2); % Eosinophils 0.1 % (0-6); % Immature Granulocytes 2.6 % (0-0.5); % Lymphocytes 10.6 % (20.5-51.1); % Monocytes 6.1 % (1.7-9.3); % Neutrophils 80.3 % (42.2-75.2); Absolute Immature Granulocytes 0.4 10^3/uL (0-0.05); Absolute Lymphocytes 1.6 10^3/uL (1.2-3.4); Absolute Monocytes 0.9 10^3/uL (0.1-0.6); Hematocrit 44.3 % (39.0-52.0); Hemoglobin 15.5 g/dL (13.0-18.0); Mean Corpuscular Hgb 24.4 pg (27.0-31.0); Mean Corpuscular Volume 69.7 fL (80.0-94.0); Mean Platelet Volume 9.2 fL (7.4-10.4); Nucleated Red Blood Cells % 0 % (-); Platelet Count 497 10^3/uL (130-400); Red Blood Cell Count 6.36 10^6/uL (4.70-6.10); Red Cell Dist. Width 16.9 % (11.5-14.5); White Blood Cell Count 14.9 10^3/uL (4.8-10.8)
[2024-04-24 21:10] LABS: Calcium 9.5 mg/dl (8.4-10.2); Chloride 94 mmol/L (98-107); Estimated Creatinine Clearance 16 ml/min; Glucose 104 mg/dl (70-99); Sodium 125 mmol/L (135-145); eGFR 15.43
[2024-04-24 21:11] LABS: Blood Urea Nitrogen 109 mg/dl (9-20); Carbon Dioxide < 5 mmol/L (22-30)
[2024-04-24 21:38] LABS: Urine Albumin 3+ (Neg - Trace); Urine Bilirubin 1+ (Negative); Urine Character Very Cloudy (Clear); Urine Color Brown; Urine Glucose Negative (Negative); Urine Ketone Trace (Negative); Urine Leukocyte 2+ (Negative); Urine Nitrite Positive (Negative); Urine Occult Blood 4+ (Negative); Urine Specific Gravity 1.015 (<1.030); Urine Urobilinogen Negative (Neg - 1+)
[2024-04-24 21:45] LABS: Urine Red Blood Cell >100 /HPF (0-2)
[2024-04-24 21:46] LABS: Amphetamines Positive (Negative); Barbiturates Negative (Negative); Benzodiazepines Negative (Negative); Buprenorphine Negative (Negative); Cocaine Negative (Negative); Marijuana Positive (Negative); Methadone Negative (Negative); Methamphetamines Positive (Negative); Opiates Negative (Negative); Phencyclidine Negative (Negative); Tricyclic Antidepressants Negative (Negative)
[2024-04-24 21:49] LABS: Venous Blood Gas B.E. -15.1 mmol/L (-4 to +4); Venous Blood Gas HCO3 9.9 mmol/L (22-27); Venous Blood Gas O2 Sat % 98.7 %; Venous Blood Gas pCO2 22 mmHg (35-48); Venous Blood Gas pH 7.26 (7.32-7.43); Venous Blood Gas pO2 94 mmHg (30-50)
[2024-04-24 22:00] LABS: Fentanyl, Urine Negative (Negative)
[2024-04-24 22:01] LABS: Lactic Acid 1.4 mmol/L (0.7-2.0)
[2024-04-24] MEDS: SODIUM BICARBONATE 1150 MEQ IV (22:18)
[2024-04-24] MEDS: ZOSYN 50 IV (22:19)
--- NOTE | 2024-04-24 22:26 | HPS.HSE ---
Family Physician
-
Family Physician: El Perez
Chief Complaint
-
unable to urinate
History of Present Illness
38 transgender female with PMH significant for recent hospitalization for severe ALVA / urogenital gonorrhea, POS HIV dxed since Aug 2023, non compliance with meds, HX ssupected of conversion disorder , HX anxiety and depression and RUE brachial
plexopathy , BMI 18.5 HX protein calorie malnutrition seen at ER difficulty voiding with hematuria.
- reports nausea but no vomiting
- denied diarrhea
@ER on arrival
Temp 96.0 R placed bear hugger warmer
BP 79/48 IVF's infusing BP improved to 100/60
HR 110 sinus on monitor
Bladder scan: 34 cc
Medical History
Past Medical History
Past Medical History: Reports Other
Additional Past Medical History:
RUE Brachial Plexopathy (injury during childbirth)
Anxiety / Depression
Transgender
HIV Positive (newly diagnosed)
Past Surgical History: Reports Other
Additional Past Surgical History:
RUE Reconstructions x 5
Patient denies any other surgeries
Social History
Tobacco: Smoker (Current every day smoker. )
Alcohol: None
Drug: Marijuana (Daily)
Family History
Family History: Other (Mother: Asthma)
Allergies / Home Medications
Allergies reflects when Allergies were last updated in [employer].
Home Medications with original date entered in [facility]
Allergy/Medication List:
Allergies
Allergy/AdvReac Type Severity Reaction Status Date / Time
No Known Allergies Allergy Verified 09/03/23 22:40
Home Medications
No Meds [No Current Medications] 08/11/23
Review of Systems
-
Unable to obtain full review of systems at this time due to: Acuity
Physical Exam
Vital Signs
Vital Signs
Temp Pulse Resp BP Pulse Ox
96.5 F L 90 15 99/59 98
04/24/24 20:30 04/24/24 21:45 04/24/24 21:45 04/24/24 21:45 04/24/24 21:45
Physical Exam
General: Conversant (slow cogntive speed )
HEENT: NormoCephalic, Anicteric and Other (dry OM )
Respiratory: Clear
Cardiac: S1/S2, Tachycardia and Other (hypotensive )
GI: Soft, Non Tender, Non Distended and Normal Bowel Sounds
Skin: Dry
Psych: Other (slow cognitve speed )
Laboratory Results
-
04/24/24 19:57
Laboratory Results
Lactic Acid 1.4 mmol/L (0.7-2.0) 04/24/24 19:57
Total Bilirubin Cancelled 04/24/24 20:38
AST Cancelled 04/24/24 20:38
ALT Cancelled 04/24/24 20:38
Alkaline Phosphatase Cancelled 04/24/24 20:38
Data Reviewed
-
Lab Data: Labs Reviewed by me
Old Records: Reviewed
Impression/Plan
-
Vital Signs
Temp Pulse Resp BP Pulse Ox
96.5 F L 90 15 99/59 98
04/24/24 20:30 04/24/24 21:45 04/24/24 21:45 04/24/24 21:45 04/24/24 21:45
Laboratory Tests
09/07/23 04/24/24 04/24/24
05:40 19:57 20:38
WBC 14.9 H
Hgb 10.9 L 15.5
Plt Count 150 D 497 H
Sodium 132 L 125 L
Chloride 99 94 L
Carbon Dioxide 25 < 5 L*
BUN 109 H*
Creatinine 0.9 4.7 H*
Laboratory Tests
04/24/24
21:43
VBG pH 7.26 L
VBG pCO2 22 L
VBG pO2 94 H
VBG HCO3 9.9 L
Data upon admission
WBC 14.9 Hgb 15.5 Plt 497 suspect hemoconcentrated
K 7.0
ABG: primary MA, secondary resp alkalosis and NG MA
Hi gap MA @26
Last hospitalist admission: Date of Admission: 09/04/23 - Date of Discharge: 09/06/23
Principal Diagnosis:
Subjective expressive aphasia/garbled speech, likely conversion versus somatization disorder
HIV positive state
Chronic Diagnoses:
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
Generalized anxiety disorder
Transgender male to female
Mild Protein Calorie Malnutrition, BMP 18
ASSESSMENT & PLAN
Hypothermic Hypotensive ; presume sepsis with sock , severe dehydration
Profound hyperkalemia
Hyponatremia
Anuric ALVA
Constellation of acid- base disorder as below:
Hi gap MA @26
ABG: primary MA, secondary resp alkalosis and NG MA
Polysubstance abuse - UDS POS Amphetamines, Meth, THC
HIV Positive : Non compliance with HIV Meds
Unknown recent CD 4 count
Protein Calorie Malnutrition with BMP 18
Continue to encourage adequate nutrition.
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
Generalized anxiety disorder
transgender male to female
Mentation:
- Septic bolus with NS wide open - if no resposne to initiate pressor
- ER Tx of hyperkalemia - Insilin and D50, Na Zircnium ,
- Bicarb gtt
- Empiric vanco and zosyn
- BMP q3H
- BCx sent
- Urgent renal consulted - case I dw Renal will need uregent HD -
- Urgent IR consult for HD cath - sent priorty text and lefet message on Tel ( Per ICU BACTERIOLOGY RESEARCH ASSISTANT Currently IR attd is doing urgent embolization at lab for other patient )
- Consultant Education consult
- ID consult
Prognosis guarded : Shaun discussed case with brother and sister at bed side ref to life threatening multiple medical emergency. They acknowledged.
DVT Prophylaxis: SQH
Code Status: Full
ICU
Shaun godfrey ER attd, ICU BACTERIOLOGY RESEARCH ASSISTANT and Cellophane Tester
Shaun godfrey brother an sister at bed side
Total Critical Care Time___75 __ minutes.
I was immediately available to the patient and staff. I personally examined, reviewed labs, diagnostic images/reports, interpretations, treatment plans, discussed patient care with other providers and family or caregivers (if patient is unable to
make decisions), entered orders as appropriate and documented the medical record.
[2024-04-24 22:39] LABS: Magnesium 2.7 mg/dl (1.6-2.3)
[2024-04-24 22:45] LABS: COVID-19 Antigen Negative (Negative)
[2024-04-24] MEDS: NOVOLIN R 10 UNITS IV (22:48)
[2024-04-24] MEDS: LOKELMA 10 GRAM PO (22:50)
[2024-04-24] MEDS: SODIUM BICARBONATE 50 MEQ IV ×2 (22:51→23:34)
[2024-04-24] MEDS: DEXTROSE 50% SYRINGE 25 GRAMS IV (22:51)
[2024-04-24 23:21] LABS: Glucose - Point of Care 197 mg/dl (70-99)
--- NOTE | 2024-04-24 23:49 | W.CON.NEPH ---
Consultation
-
Date/Time Consultation Requested: 04/24/242217
Date/Time Consultation Performed: 04/24/24 2330
Requesting Provider: Tha Pinto
Performing Provider: Shonda Zaldivar
Reason for Consultation: ALVA, hyperkalemia, severe acidosis
Medical History
-
Chief Complaint: unable to urinate
History of Present Illness:
38 transgender female (male to female) who had hospitalization for severe ALVA, high K, k stones, bilat hydro / urogenital gonorrhea, POS HIV dxed in Aug 2023,he is non compliance with meds, HX suspected of conversion disorder , HX anxiety and
depression and RUE brachial plexopathy , BMI 18.5 HX protein calorie malnutrition who presented with unable to urinate. Pt reports not feeling for weeks and slowly decreased oral intake for last 2weeks with nausea. Difficulty urination started days
ago, also notes hematuria. He denies any fever, cough, cp, sob or abd pain or constipation or diarrhea or vomiting. Denies rash. History is limited from pt. on arrival ER he was hypothermic Temp 96.0, BP 79/48, tachy. He received 2lit of NS bolus
with improved BPs to 120s. labs noted Na 125, k 7, bicarb <5, cr 4.7, BUN 109, L acid 1.4. He is able to urinate with difficulty through condom catheter, has ~200cc now, bladder scan initially was 34cc. Denies use of NSAIDs. UDS +ve amphetamine,
methamphetamine, marijuana. He supposed to see from last admit not sure if that happened.
Past Medical History
RUE Brachial Plexopathy (injury during childbirth)
Anxiety / Depression
Transgender(male to female)
HIV Positive (newly diagnosed in Aug not compliant with meds)
Nephrolithiasis
Past Surgical History: Other (RUE Reconstructions x 5)
Social History
Tobacco: Smoker
Alcohol: Occasional (none on last 4m)
Drug: Marijuana
Family History
no h/o CKD mother side
Allergies / Home Medications
Allergy/AdvReac Type Severity Reaction Status Date / Time
No Known Allergies Allergy Verified 09/03/23 22:40
�Medication �Instructions �Recorded �Confirmed �Type
acetaminophen 500 mg tablet 1,000 mg PO BIDPRN PRN mild pain 09/04/23 04/24/24 History
(Tylenol Extra Strength)
bictegravir 50 mg-emtricitabine 1 tab PO DAILY 04/24/24 04/24/24 History
200 mg-tenofovir alafenam 25 mg
tablet (Biktarvy)
Review of Systems
-
Difficult historian , all complete tried to reviewed with pt and found negative other than stated in HPI
All other systems: Negative unless noted
Physical Exam
Vital Signs
Vital Signs
Temp Pulse Resp BP Pulse Ox
97.8 F 90 15 99/59 98
04/24/24 23:32 04/24/24 21:45 04/24/24 21:45 04/24/24 21:45 04/24/24 21:45
Lab Results
WBC 14.9 10^3/uL (4.8-10.8) H 04/24/24 19:57
RBC 6.36 10^6/uL (4.70-6.10) H 04/24/24 19:57
Hgb 15.5 g/dL (13.0-18.0) 04/24/24 19:57
Hct 44.3 % (39.0-52.0) 04/24/24 19:57
Plt Count 497 10^3/uL (130-400) H 04/24/24 19:57
Sodium 125 mmol/L (135-145) L 04/24/24 20:38
Potassium 7.0 mmol/L (3.5-5.1) H* 04/24/24 22:10
Chloride 94 mmol/L (98-107) L 04/24/24 20:38
Carbon Dioxide < 5 mmol/L (22-30) L* 04/24/24 20:38
BUN 109 mg/dl (9-20) H* 04/24/24 20:38
Creatinine 4.7 mg/dL (0.7-1.3) H* 04/24/24 20:38
eGFR 15.43 04/24/24 20:38
Glucose 104 mg/dl (70-99) H 04/24/24 20:38
Calcium 9.5 mg/dl (8.4-10.2) 04/24/24 20:38
Albumin Cancelled 04/24/24 20:38
CXR:
FINDINGS: A single frontal radiograph of the chest was obtained at 10:03 PM on 04/24/2024.
The cardiac silhouette and pulmonary vasculature are radiographically within normal limits.
There are no acute mediastinal abnormalities.
There are no acute pleural or parenchymal abnormalities.
IMPRESSION:
No active cardiopulmonary disease.
EKG:
Test Reason : TACHY
Blood Pressure : / mmHG
Vent. Rate : 091 BPM Atrial Rate : 091 BPM
P-R Int : 146 ms QRS Dur : 106 ms
QT Int : 352 ms P-R-T Axes : 063 074 058 degrees
QTc Int : 432 ms
NORMAL SINUS RHYTHM
MINIMAL VOLTAGE CRITERIA FOR LVH, MAY BE NORMAL VARIANT ( Skyler product )
NONSPECIFIC ST ABNORMALITY
ABNORMAL ECG
WHEN COMPARED WITH ECG OF 04-SEP-2023 03:42,
PREMATURE VENTRICULAR COMPLEXES ARE NO LONGER PRESENT
QRS DURATION HAS INCREASED
Physical Exam
General: Awake, Alert, Oriented, AOx3 and Other (sunken eyes, cachetic)
HEENT: EOMI, Conjunctivae Clear, Facial Symmetry, Neck Supple and No JVD
Respiratory: Clear, Normal Excursion and Nonlabored Respirations
Cardiac: S1/S2 and Regular Rate/Rhythm
Breast: Deferred by me
Abdomen: Soft, Nontender and Nondistended
Musculoskeletal: No Cyanosis and No Edema
Skin: No Rash and Dry
Neuro: Nonfocal/Grossly Intact
Psych: Appropriate
Data Reviewed
-
Radiology: Report Reviewed by me
Labs: Labs Reviewed by me, Discussed with Physician, Discussed with Patient and Discussed with Family
Assessment/Plan
-
IMP:
Hypothermic Hypotensive - presume sepsis
Life threatening hyperkalemia
ALVA-baseline cr 0.9
Hyponatremia
Hi gap MA @26
Acidemia from met acidosis
Polysubstance abuse - UDS POS Amphetamines, Meth, THC
HIV Positive : Non compliance with HIV Meds
Protein Calorie Malnutrition with BMP 18
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
Generalized anxiety disorder
transgender male to female
Nephrolithiasis on CT in 08/2023
h/o U retention
Plan:
A/w FTT, unable to urinate
life threatening hyperkalemia k at 7, s/p temporization with insulin,calcium, bicarb and LOkelma
expect correction of acidosis and vol repletion likely help to improve k as well , cont iv bicarb fluids
no EKG changes so far
repeat labs now , if k remains high
most likely need HD tonight, IR notified to get temp catheter by hospitalist team, appt help
severe ALVA-suspect prerenal progressed to ATN phase specially anuric on arrival and low BPs, vol depletion for several days
UA-hematuria, not sure if infection, check U lytes and U PCR
given HIV status differential is broad, check renal US with h/o k stone
Note she had very similar presentation in Aug too
she is making some urine s/p IVF, brownish urine noted 200cc in condom cath,
known h/o retention need bladder scan f/u, low threshold for dumont
hyponatremia from hypovolemia, check U and S osmo
Empiric abx per primary, dose renally-ID consulted
hb is high likely hemoconcentrated, MCV low, check fe studies
she is critically ill
d/w pt and family(sister and brother) at bedside in detail
CC time spent 60min
d/w primary and nursing
[2024-04-25] VITALS (23 sets, daily range): BP systolic 99–140; BP diastolic 44–106; BMI 19.6
[2024-04-25] MEDS: CALCIUM GLUCONATE 100 IV (00:16)
[2024-04-25] MEDS: VERSED 2 MG IV (00:25)
[2024-04-25 00:34] LABS: Blood Urea Nitrogen 107 mg/dl (9-20); Calcium 8.1 mg/dl (8.4-10.2); Carbon Dioxide 14 mmol/L (22-30); Chloride 96 mmol/L (98-107); Glucose 118 mg/dl (70-99); Potassium 5.2 mmol/L (3.5-5.1); Sodium 129 mmol/L (135-145)
[2024-04-25 00:44] LABS: Estimated Creatinine Clearance 21 ml/min; eGFR 21.24
--- NOTE | 2024-04-25 00:55 | W.PN.UPDATE ---
Update Note
Progress Note Update
repeat labs noted k 5.2
improving acidosis
no emergent need of HD tonight
keep HD catheter for now
labs in am
d/w family at bedside in detail
d/w frame gate mortiser operator
[2024-04-25 01:00] LABS: Osmolality Serum 299 mOsm/kg (275-300)
[2024-04-25 01:00] LABS: Osmolality Urine 353 mOsm/kg (300-900)
[2024-04-25 01:19] LABS: Urine Sodium 90 mmol/L (30-90)
[2024-04-25] MEDS: VANCOCIN 300 ML IV (01:21)
[2024-04-25] MEDS: VANCOCIN 300 MG IV (01:21)
[2024-04-25 01:32] LABS: Urine Protein 512 mg/dl (0-12)
--- NOTE | 2024-04-25 02:39 | PTCARENOTE ---
Pt received from ED via stretcher to room 3365. Ox3, withdrawn. SR to sinus tach with frequent PVCs. Weak but palpable pulses. Breath sounds diminished t/o, RA--99%. Hypoactive bowel sounds, unknown last BM. CC in place, urine yellow/cloudy--c/o
burning/pressure sensation w/ initial urination. Skin appears pale/dry, intact. PIV sites flushed and patent. Safe environment maintained, call gaviria within reach.
[2024-04-25] MEDS: SODIUM BICARBONATE 1150 MEQ IV ×2 (04:10→15:02)
[2024-04-25 04:36] LABS: ALT (SGPT) 19 U/L (0-50); AST (SGOT) 17 U/L (17-59); Albumin 3.3 g/dl (3.5-5.0); Alkaline Phosphatase 268 U/L (38-126); Blood Urea Nitrogen 96 mg/dl (9-20); Calcium 8.3 mg/dl (8.4-10.2); Carbon Dioxide 17 mmol/L (22-30); Chloride 95 mmol/L (98-107); Estimated Creatinine Clearance 24 ml/min; Glucose 148 mg/dl (70-99); Iron 139 ug/dl (49-181); Lactic Acid 0.7 mmol/L (0.7-2.0); Magnesium 2.2 mg/dl (1.6-2.3); Phosphorus 5.5 mg/dl (2.5-4.5); Potassium 4.8 mmol/L (3.5-5.1); Sodium 127 mmol/L (135-145); eGFR 24.47
[2024-04-25 04:38] LABS: INR 1.17; PT 14.7 Sec (11.4-14.6)
[2024-04-25] MEDS: ZOSYN 50 IV ×4 (04:38→22:41)
[2024-04-25 04:39] LABS: APTT 30.7 Sec (23.4-35.0)
[2024-04-25 04:40] LABS: Hematocrit 31.4 % (39.0-52.0); Hemoglobin 11.2 g/dL (13.0-18.0); Mean Corp Hgb Conc. 35.7 g/dL (33.0-37.0); Mean Corpuscular Hgb 24.5 pg (27.0-31.0); Mean Corpuscular Volume 68.6 fL (80.0-94.0); Mean Platelet Volume 8.9 fL (7.4-10.4); Platelet Count 289 10^3/uL (130-400); Red Blood Cell Count 4.58 10^6/uL (4.70-6.10); Red Cell Dist. Width 15.7 % (11.5-14.5); White Blood Cell Count 6.6 10^3/uL (4.8-10.8)
[2024-04-25 04:45] LABS: Percent Saturation 51 % (20-50); Total Iron Binding Capacity 271 ug/dl (261-462)
--- NOTE | 2024-04-25 06:02 | W.PN.SEPSIS ---
Sepsis
Vital Signs
Temp Pulse Resp BP Pulse Ox
97.8 F 93 15 125/44 99
04/24/24 23:32 04/25/24 05:45 04/25/24 05:45 04/25/24 05:00 04/25/24 05:45
Physical Exam
Physical Exam:
A focused exam was performed after fluid resuscitation.
Capillary Refill
Bilateral Upper Extremity:
Kyung Time: Less than 3 sec
Bilateral Lower Extremity:
Kyung Time: Less than 3 sec
Pulse Evaluation
Bilateral Radial:
Pulse Evaluation: Present
Bilateral Dorsalis Pedis:
Pulse Evaluation: Present
--- NOTE | 2024-04-25 06:07 | PTCARENOTE ---
Reassessed, unchanged. Safe environment maintained, call gaviria within reach.
--- NOTE | 2024-04-25 07:56 | CON.INTV ---
Consultation
Consultation Request
Date/Time Consultation Requested: 04/25/2024-7 AM
Date/Time Consultation Performed: 04/25/2024-7 AM
Requesting Provider: Hospitalist
Performing Provider: Dr. Mccabe
Reason for Consultation: Sepsis
Medical History
-
Chief Complaint: Sepsis
History of Present Illness:
38-year-old transgender female with a history of HIV, noncompliance, STDs, suspected conversion disorder, anxiety, depression, and calorie malnutrition who presented with hypothermia and hypotension suspected of sepsis-physicist nuclear consulted for
sepsis/critical care management 04/25/2024. Patient is feeling improved. Offers no complaints of shortness of breath, chest pain, abdominal pain, nausea, blood pressure improved, not requiring pressors, or lower extremity swelling.
Past Medical History
Past Medical History: None (Transgender-biological male transitioning to female. HIV diagnosed August 2023-noncompliant with meds. Suspected conversion disorder. Anxiety. Depression. Right upper extremity brachial plexopathy status post 5
previous surgeries. Protein calorie malnutrition.)
Social History
Tobacco: Smoker
Alcohol: None
Drug: Marijuana
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
Environmental Exposures: Unknown tuberculosis exposure
Family History
Family History: Reviewed & Not Pertinent
Allergies / Home Medications
Allergies
Allergy/AdvReac Type Severity Reaction Status Date / Time
No Known Allergies Allergy Verified 09/03/23 22:40
Home Medications
�Medication �Instructions �Recorded �Confirmed �Last Taken �Type
acetaminophen 500 mg tablet 1,000 mg PO BIDPRN PRN mild pain 09/04/23 04/24/24 5 Days Ago History
(Tylenol Extra Strength) ~08/30/23
bictegravir 50 mg-emtricitabine 1 tab PO DAILY 04/24/24 04/24/24 3 Weeks Ago History
200 mg-tenofovir alafenam 25 mg ~04/03/24
tablet (Biktarvy)
Review of Systems
-
Unable to Obtain full review of systems at this time due to: Other (Per HPI)
Vitals / Labs / Diagnostic Testing
Vital Signs
Temp Pulse Resp BP Pulse Ox
98.3 F 101 18 124/64 97
04/25/24 07:27 04/25/24 07:45 04/25/24 07:45 04/25/24 07:00 04/25/24 07:45
Lab Data
04/25/24 04:11
04/25/24 04:11
Laboratory Results
04/25/24
04:11
PT 14.7 H
INR 1.17
APTT 30.7
Microbiology
04/24/24 22:21 Nasal Swab Influenza Types A & B (YUMIKO) - Final
Negative for Influenza A & B, NAAT
Negative results must be combined with clinical observations
and patient history.
Nucleic Acid Amplification test (NAAT)performed on the
[employer] platform.
Diagnostic Testing:
Physical Exam
-
Exam:
Well-nourished and well-developed in no apparent distress, cachexia
HEENT-atraumatic, normocephalic, temporal wasting
Neck-supple, no JVD, no bruit
Heart-regular rate and rhythm-no murmurs, rubs or gallops
Chest-clear to auscultation, no wheezes, crackles
Back-no tenderness
Abdomen-soft, nontender, nondistended, no hepatosplenomegaly
Extremities-no cyanosis, clubbing, edema and good peripheral pulses
Integument-intact, no rashes, lesions or ecchymosis
Neurology-alert and oriented, nonfocal motor and sensory exam
Assessment
-
38-year-old transgender female with a history of HIV, noncompliance, STDs, suspected conversion disorder, anxiety, depression, and calorie malnutrition who presented with hypothermia and hypotension suspected of sepsis-physicist nuclear consulted for
sepsis/critical care management 04/25/2024.
Hypothermia/hypotension-suspect sepsis with shock
Hyperkalemia
ALVA
Hyponatremia
Metabolic acidosis
Polysubstance abuse-marijuana, amphetamines, meth
Mild anemia-hemoglobin 11.2
HIV-noncompliant with meds
Mild hyperglycemia
Conditions present prior to admission:
Transgender-biological male transitioning to female.
HIV diagnosed August 2023-noncompliant with meds.
Suspected conversion disorder.
Anxiety.
Depression.
Right upper extremity brachial plexopathy status post 5 previous surgeries.
Protein calorie malnutrition.
Polysubstance abuse
History ALVA/hydronephrosis/renal calculi
Plan
Admit patient to medical intensive care unit for persistent hypotension despite fluid resuscitation requiring pressors
Supplement oxygen as needed
High flow oxygen if needed
BiPAP if necessary
Intubate and mechanically ventilate if necessary
Aspiration precautions
Nebulizers if needed
Obtain cultures
Empiric antibiotics
Infectious disease consultation-briefly reviewed with Dr. Cullen
Patient HIV positive noncompliant with medications
Monitor leukocytosis
Fluid resuscitation with 30 mL/kg crystalloid-preferably lactated ringer-(less ALVA) with subsequent boluses as needed
Monitor lactate
Follow CVP if possible
Attempt noninvasive bedside tissue perfusion evaluation to see if fluid bolus responsive
Measure pulse pressure and stroke volume variation if patient on ventilator, passively breathing without arrhythmia and with temporary large tidal volume ventilation and if > 13% then likely fluid bolus responsive
If patient active then consider measuring bedside leg lift for 3 minutes and if cardiac output increases or if there is a rise of 2-4 on end-tidal CO2 then fluid bolus
If bedside ultrasound available then measure IVC diameter variation to evaluate for fluid bolus responsiveness
Begin pressors as needed for MAP goal of 65-Norepinephrine first, then Vasopressin and consider Angiotensin II if continues to be hypotensive
Consider methylene blue if available-specific inhibitor of induced nitric oxide synthase iNOS and its downstream enzyme soluble guanylate cyclase-noninferiority study shown to reduce time to vasopressor discontinuation, decreased ICU length of stay,
hospital stay but no change in mortality-published Critical Care 10/20/2022
If persistently hypotensive then consider checking random cortisol-hydrocortisone if random less than 3, if 3-15 then consider ACTH stimulation test
If persistently hyperthermic then correcting hyperthermia can decrease pressor requirements, increased chances of reversal of shock and decrease mortality
Nephrology evaluation
Monitor renal function
Replace electrolytes
Life-threatening hyperkalemia correction
Follow hemoglobin
Transfuse if needed
Monitor blood sugar
Insulin supplementation if needed
DVT prophylaxis
Early nutrition if possible
Early mobilization/bedside range of motion
If able to be weaned off pressors then transfer out of ICU-call pulmonary if respiratory issues arise
Critical care statement: A total of 50 minutes of critical care time was provided for this patient today. This includes management of unstable vital signs, evaluation of the patient at bedside, reviewing the patient's pertinent medical records
including radiographs, pressor management, microbiology, laboratory evaluations, and discussion with primary team, consultants, pharmacy, nutrition, physical therapy, case management, charge nurse, critical care nursing, and respiratory therapy.
Diagnostic data:
Chest x-ray 04/24/2024-NAD
Chest x-ray 04/25/2024-satisfactory position of bedside nontunneled catheter, no pneumothorax
Renal ultrasound 04/25/2024-moderate hydronephrosis unchanged compared to CT 08/12/2023
Data Reviewed
-
EKG: Report reviewed by me
Radiology: Report reviewed by me
Labs: Labs reviewed by me
Old Records: Reviewed
Critical Care Time (in minutes): 45
--- NOTE | 2024-04-25 08:00 | PTCARENOTE ---
Received patient from night shift supervisor. patient is sleepy, arousable, AAOx3. on room air, 97%. Sinus rhythm on monitor. Patient is cachectic appearing, states they are very tired, rates generalized achiness at 6:10. Patient is NPO, condom cath on
for urine. SCDs on. Will review orders. sterile water infusing into left forearm.
[2024-04-25] MEDS: HEPARIN 5000 UNITS SC ×2 (08:02→20:37)
--- NOTE | 2024-04-25 08:27 | W.PN.HOSP.TC ---
Addendum entered and electronically signed by Rishabh Story MD 04/25/24 10:56:
I saw and evaluated the patient. I reviewed the resident�s note and agree with findings and plan as documented in the resident�s note.
Denies acute complaints including CP/SOB
Pt seen and examined with nurse Padma Craig present at bedside:
NAD, awake and alert, appears chronically ill
RRR, normal S1/S2
CTAB
+BS/soft/NT/ND
Acute kidney injury with anion gap metabolic acidosis:
-Continue sodium bicarb drip
-Creatinine improving
-Hyperkalemia now resolved
-Acidosis improving
Severe protein calorie malnutrition
HIV POS: Noncompliant with HAART. Will not resume Biktarvy until renal fxn improves
Illicit drug abuse, counseled on cessation of illicit drug use
Total time spent on today's encounter was 50 minutes which included time spent in counseling the patient/family regarding diagnosis and treatment plan as listed above, goals of care, and symptom management. Case was discussed with nursing staff,
specialists, and care coordinators/case management. All labs and imaging personally reviewed by me. Remainder the time spent in detailed review of previous records, lab data, imaging, and other medical provider documentation.
Original Note:
Today's Communication/Plan
-
C/w IVF + bicarb for Na correction/MA. C/w IV Abx.
Assessment / Plan
Assessment / Plan
39 yo transgender (Male to female) with a past medical history of HIV (diagnosed 2023, medication noncompliance), history of brachial plexus injury (childbirth), anxiety, depression who presented to the ED with severe nausea and hematuria.
#Severe Sepsis, uncertain etiology
- Hypothermia, elevated WBC count, hypotension requiring IVF
- BP improved s/p fluid bolus, did not require pressors
- Blood cultures pending. Urine cultures pending. On IV Vanc/Zosyn
- Pressures stable today, normothermic, WBC downtrending.
- Denies recent IV drug use, though admits was a heroine user 17 years ago.
- continue to monitor cultures as above. C/w IV Abx for now
#Acute Hyperkalemia (resolved)
- 7.0 on admission, s/p 10U insulin D5W in ED, calcium gluconate, Lokelma
- Improved this morning to 4.8
#Acute Renal failure, possibly secondary to HIV Associated nephropathy vs. Sepsis/Pre-renal
- Severe hypotension/sepsis
- UA (+) for blood, protein, BUN/Cr 96/3.2
- Urine output via Ferris is approx. 1000cc this AM.
#Metabolic Acidosis with respiratory compensation
- Anion Gap 26, now 15 s/p IVF, sodium bicarb.
- Nephro following
- C/w bicarb drip
#Acute Hyponatremia
- 125 on admission, 127 now.
- IV 1/2 NS w/ 150meq sodium bicarb. Will keep to a correction rate of 4-6 mmol/24 hours. Repeat BMP in the AM.
#HIV, noncompliant with medication
- CD4 count pending
- Hold home Biktarvy in the setting of ALVA
#Protein Calorie malnutrition - BMI <18
- Advanced regular diet
#Anxiety
#Depression
#Transgender
- Psych consult place; will observe recommendations
#Polysubstance Use
- (+) For Amphetamine/Methamphetamine/MJ
#Dispo - Med/Surg w/ Tele
#DVT PPx - Heparin SC
#Diet - NPO
#Code Status - Full Code
Anticipated Discharge: 24 - 48 hours
Subjective/Interval History
-
Seen in the AM. Patient is tired but able to respond coherently to questions. She is complaining mostly of nausea, hunger and painful hiccups. There were no acute events overnight.
Objective Data
-
Labs:
Laboratory Results
04/24/24 04/24/24 04/24/24
20:38 21:43 22:10
WBC
Hgb
Hct
Plt Count
PT
INR
APTT
Sodium 125 L
Potassium Cancelled 7.0 H*
Chloride 94 L
Carbon Dioxide < 5 L*
BUN 109 H*
Creatinine 4.7 H*
Glucose 104 H
Calcium 9.5
Total Bilirubin Cancelled
AST Cancelled
ALT Cancelled
Alkaline Phosphatase Cancelled
04/25/24 04/25/24 04/25/24
00:03 00:07 04:11
WBC 6.6
Hgb 11.2 L D
Hct 31.4 L
Plt Count 289 D
PT 14.7 H
INR 1.17
APTT 30.7
Sodium 129 L Cancelled 127 L
Potassium 5.2 H D Cancelled 4.8
Chloride 96 L Cancelled 95 L
Carbon Dioxide 14 L* Cancelled 17 L
BUN 107 H* Cancelled 96 H
Creatinine 3.6 H Cancelled 3.2 H
Glucose 118 H Cancelled 148 H
Calcium 8.1 L Cancelled 8.3 L
Total Bilirubin 1.0
AST 17
ALT 19
Alkaline Phosphatase 268 H
Vital Signs:
Vital Signs
Temp Pulse Resp BP Pulse Ox
98.3 F 101 18 124/64 97
04/25/24 07:27 04/25/24 07:45 04/25/24 07:45 04/25/24 07:00 04/25/24 07:45
I&O
04/24/24 04/25/24 04/26/24
06:59 06:59 06:59
Intake Total 550 / 650 100 / 100
Output Total 750 / 750
Balance -200 / -100 100 / 100
Review of Systems
-
History Source: Patient
All other systems: Reviewed and negative
Constitutional: Reports Fatigue; Denies Fever
EENT: Reports No Symptoms Reported
Respiratory: Denies Cough, Trouble Breathing or Pleurisy
Cardiac: Denies Chest Pain, Diaphoresis, Palpitations or Syncope
Abdomen/GI: Reports Nausea and Other (Hiccups); Denies Abdominal Pain, Vomiting, Diarrhea, Constipated, Bloody Stools or Hematemesis
Breast: Reports N/A
Genitourinary: Reports Bleeding; Denies Dysuria, Frequency or Urgency
Musculoskeletal: Reports No Symptoms
Skin: Reports No Symptoms
Neuro: Reports No Symptoms
Endocrine: Reports No Symptoms
Hematologic / Lymphatic: Reports No Symptoms
Allergy / Immunology: Reports No Symptoms
Physical Exam
-
General: Appears Chronically Ill and Other (Anorexic, not quite cachectic )
HEENT: Normocephalic, Atraumatic, Moist Mucous Membranes, Anicteric, [place] Conjunctivae, PERRLA and Good Dentition (Poor dentition)
Respiratory: Clear to Auscultation
Cardiac: S1/S2 and Irregular Rhythm; Negative Murmur or Tachycardic
Breast: N/A
GI: Soft, Nontender and Nondistended; Negative Normal Bowel Sounds (hypoactive)
Rectal: Deferred by Provider
Genito-urinary: No Costovertebral Tender and Ferris (approx. 1000cc of dark yellow urine)
Musculoskeletal: No Clubbing, No Cyanosis and No Edema
Skin: Warm, Dry, Normal Turgor and IV Access / Catheter Site (R IJ dialysis catheter)
Neuro: Awake, Alert and Oriented
Psych: Anxious
--- NOTE | 2024-04-25 09:13 | W.PN.NEPH.PH ---
Today's Communication / Plan
-
IVF
Assessment/Plan
-
IMP:
Hypothermic Hypotensive - presume sepsis
Life threatening hyperkalemia
ALVA-baseline cr 0.9
Hyponatremia
Hi gap MA @26
Acidemia from met acidosis
Polysubstance abuse - UDS POS Amphetamines, Meth, THC
HIV Positive : Non compliance with HIV Meds
Protein Calorie Malnutrition with BMP 18
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
Generalized anxiety disorder
transgender male to female
Nephrolithiasis on CT in 08/2023
h/o U retention
Plan:
follow BMP
continue IVF with bicarb today
no biktarcy (tenofovir) with ALVA for now
follow UOP
no samsca today suspect she is still hypovolemic
broad spectrum abx, await cx results
critical care time 31 minutes
-
-
Date of Service: April 25, 2024
CC / HPI / ROS
-
Chief Complaint:
ALVA
History of Present Illness:
ALVA/Cr down to 3.2
BUN down to 96
acidosis better 17 with bicarb IVF
BP stable
K normal
nonoliguric condom catheter
critically ill in ICU
Review of Systems:
no CP/SOB
Labs
-
Labs:
WBC 6.6 10^3/uL (4.8-10.8) 04/25/24 04:11
RBC 4.58 10^6/uL (4.70-6.10) L 04/25/24 04:11
Hgb 11.2 g/dL (13.0-18.0) L D 04/25/24 04:11
Hct 31.4 % (39.0-52.0) L 04/25/24 04:11
Plt Count 289 10^3/uL (130-400) D 04/25/24 04:11
Sodium 127 mmol/L (135-145) L 04/25/24 04:11
Potassium 4.8 mmol/L (3.5-5.1) 04/25/24 04:11
Chloride 95 mmol/L (98-107) L 04/25/24 04:11
Carbon Dioxide 17 mmol/L (22-30) L 04/25/24 04:11
BUN 96 mg/dl (9-20) H 04/25/24 04:11
Creatinine 3.2 mg/dL (0.7-1.3) H 04/25/24 04:11
eGFR 24.47 04/25/24 04:11
Glucose 148 mg/dl (70-99) H 04/25/24 04:11
Calcium 8.3 mg/dl (8.4-10.2) L 04/25/24 04:11
Phosphorus 5.5 mg/dl (2.5-4.5) H 04/25/24 04:11
Albumin 3.3 g/dl (3.5-5.0) L 04/25/24 04:11
Physical Exam
-
Vital Signs:
Vital Signs
Temp Pulse Resp BP Pulse Ox
98.3 F 98 18 105/52 97
04/25/24 07:27 04/25/24 09:00 04/25/24 09:00 04/25/24 09:00 04/25/24 09:00
Cardiovascular:: Regular rate and rhythm
Respiratory:: Bilateral: Coarse
Lung Excursion:: Normal
Abdomen:: Nontender and Soft
Bowel Sounds:: Normal
Extremity Edema:: None: Bilateral:
[2024-04-25 10:13] LABS: Vancomycin Random 23.7 ug/ml
--- NOTE | 2024-04-25 10:34 | PHA.VAN.IN ---
Assessment
- Assessment
Renal Function: Appears elevated from baseline
Minimum Temperature: 96.5 04/24/24 20:30
AUC Dosing Plan
- Empiric Dosing
Initial / Loading Dose: 1500 mg 04/25/24 01:21 (26 mg/kg load dose)
Maintenance Regimen: dose by random level
- Monitoring
Random level ordered AM 04/25/24 ( =23.7 at 09:43 ~ 8 hours post 1500 mg dose)
Plan
- Plan
Maintenance Regimen: dose by random level - no dose today
Monitoring: repeat random level AM 04/26 AM
Pharmacokinetics Vancomycin I
- -
Patient Age: 39
Patient Sex: Male (transgender male to female)
Vancomycin Day #: 1
Indication: Bacteremia
Requesting Provider: Day
Height / Weight:
Height 5 ft 7 in
Actual Weight 56.8 kg
Pertinent Past Medical History: BMI <20; ALVA w/ urogenital gonorrhea; HIV
- Vital Signs / Lab Results
Temp Pulse Resp BP Pulse Ox
98.3 F 98 18 105/52 97
04/25/24 07:27 04/25/24 09:00 04/25/24 09:00 04/25/24 09:00 04/25/24 09:00
Lab Results - Hematology
04/24/24 04/25/24
19:57 04:11
WBC 14.9 H 6.6
Lab Results - Chemistry
04/24/24 04/24/24 04/25/24
19:57 20:38 00:03
BUN Cancelled 109 H* 107 H*
Creatinine Cancelled 4.7 H* 3.6 H
Estimated Creat Clear Cancelled 16 21
Albumin Cancelled Cancelled
04/25/24 04/25/24
00:07 04:11
BUN Cancelled 96 H
Creatinine Cancelled 3.2 H
Estimated Creat Clear Cancelled 24
Albumin 3.3 L
04/24/24 04/24/24 04/25/24
19:57 22:49 00:00
Lactic Acid 1.4 Cancelled Cancelled
04/25/24 04/25/24 04/25/24
00:07 01:57 04:11
Lactic Acid 2.0 Cancelled 0.7
04/25/24 04/25/24 04/25/24
05:57 08:00 09:57
Lactic Acid Cancelled Cancelled Cancelled
04/25/24 04/25/24 04/25/24
12:00 13:57 16:00
Lactic Acid Cancelled Cancelled Cancelled
04/25/24
20:00
Lactic Acid Cancelled
Lab Results - Urine
04/24/24
21:24
Urine Nitrite (Reflex) Positive A
Leukocyte Esterase Rfl 2+ A
Urine WBC (Reflex)
Microbiology Results
04/24/24 22:21 Influenza Types A & B (YUMIKO) - Final
Nasal Swab Negative for Influenza A & B, NAAT
Negative results must be combined with clinical observations
and patient history.
Nucleic Acid Amplification test (NAAT)performed on the
[employer] platform.
--- NOTE | 2024-04-25 10:53 | CON.ID ---
Consultation
-
Date/Time Consultation Requested: 04/25/2024 01:57
Date/Time Consultation Performed: 04/25/2024 1053
Requesting Provider: Dr. Robin
Performing Provider: Dr. Cullen
Reason for Consultation: Clinical sepsis; Hx HIV
Chief Complaint / Past History
History of Present Illness
Chad Mercer is a trans female with a significant past medical history of HIV, being evaluated at the request of Dr. Robin regarding clinical sepsis and HIV. History is obtained from chart review, along with patient interview.
The patient is known to me from the outpatient setting where she has been followed for underlying HIV. She was last seen on 01/27/2024. At that point in time she reported doing well and was compliant with her medication regimen of Biktarvy.
She presented to the emergency room on 04/24 secondary to generalized feeling of unwell, along with reported urinary urgency. She reported hematuria for the prior 2 days, but upon further questioning notes that she has been feeling ill for the past
2 weeks with decreasing p.o. intake. BP in the ER was 79/48 and white count was noted to be elevated. Additionally, she was found to have a potassium of 7.0 and found to be in ALVA with a creatinine of 4.7.
Today labs have improved to some degree. She reports occasional fevers. She was rather somnolent during the interview, and little further history was obtainable. She does report that she has been noncompliant with her HIV medications. She
currently lives with a roommate who is not usually there and she has found it increasingly difficult to live on her own.
HIV synopsis
HIV Dx Date : 08/12/2023
CD4 David : 225 (09/05/23)
OI Hx : None
OI Prophylaxis : None
Known Resistance : None
HLA B*5701 : Negative
ART Hx :
Biktarvy (2023 - Present)
Past History
Additional Past Medical History:
HIV
Right upper extremity brachial plexopathy (from childbirth)
Anxiety/depression
Additional Past Surgical History:
RUE Reconstructions x 5
Allergy History:
No Known Allergies Allergy (Verified 09/03/23 22:40)
Medications Reviewed: Yes
Current Antibiotics:
Vancomycin
Zosyn
Biktarvy
Social History
Tobacco: Smoker
Alcohol: Occasional
Drug: Narcotics
Personal: Partner
Living: With Roomate
Employment: Not Employed
Family History
Family History: Not Pertinent
Review of Systems
Vital Signs
Temp Pulse Resp BP Pulse Ox
98.3 F 98 18 105/52 97
04/25/24 07:27 04/25/24 09:00 04/25/24 09:00 04/25/24 09:00 04/25/24 09:00
Physical Exam
Physical Exam
Constitutional: Acutely Ill, Chronically Ill, Non-toxic and Cachetic (mild)
Head: Normocephalic
Eyes: Pupils Equal, Pupils Round, No Conjunctival Hemorrhage and Sclera Anicteric
Oral: Poor Dentition, No Thrush and No Ulcers
Cardiovascular: Regular Rate and S1/S2; Negative S3/S4
Pulmonary: Clear; Negative Wheezes, Rales or Rhonchi
Gastrointestinal: Soft, Non Tender, Non Distended and Normal Bowel Sounds
Genito-Urinary: Ferrsi (Condom cath) and Clear Urine; Negative CVA Tenderness, Turbid Urine or Hematuria
Extremities: Negative Edema, Clubbing or Cyanosis
Skin: Warm and Dry; Negative Rash or Jaundice
Neurological: Other (Somnolent but arousable.); Negative Meningeal Signs
Psychological: Calm
Lines: HD Cath (Right IJ)
Lab / Diagnostic Study Results
04/25/24 04:11
04/25/24 04:11
Abs Immat Gran (auto) 0.4 10^3/uL (0-0.05) H 04/24/24 19:57
Absolute Neuts (auto) 12.0 10^3/uL (1.4-6.5) H 04/24/24 19:57
Absolute Lymphs (auto) 1.6 10^3/uL (1.2-3.4) 04/24/24 19:57
Absolute Monos (auto) 0.9 10^3/uL (0.1-0.6) H 04/24/24 19:57
Absolute Basos (auto) 0.0 10^3/uL (0-0.2) 04/24/24 19:57
Immature Gran % 2.6 % (0-0.5) H 04/24/24 19:57
Neutrophils % 80.3 % (42.2-75.2) H 04/24/24 19:57
Lymphocytes % 10.6 % (20.5-51.1) L 04/24/24 19:57
Monocytes % 6.1 % (1.7-9.3) 04/24/24 19:57
Eosinophils % 0.1 % (0-6) 04/24/24 19:57
Basophils % 0.3 % (0-2) 04/24/24 19:57
PT 14.7 Sec (11.4-14.6) H 04/25/24 04:11
INR 1.17 04/25/24 04:11
Lactic Acid Cancelled 04/25/24 20:00
Microbiology Results
Micro:
04/24/24 20:38 Blood Culture - Pending
Blood/Venous
04/25/24 04:11 MRSA Screen - Pending
Nose
04/24/24 22:21 Influenza Types A & B (YUMIKO) - Final
Nasal Swab Negative for Influenza A & B, NAAT
Negative results must be combined with clinical observations
and patient history.
Nucleic Acid Amplification test (NAAT)performed on the
[employer] platform.
04/24/24 21:24 Urine Culture - Pending
Urine
Imaging:
04/25/2024 Renal ultrasound (without bladder) : Moderate hydronephrosis of bilateral kidneys, grossly unchanged compared to prior CT of 08/12/2023
04/24/2024 CXR (portable): No active cardiopulmonary disease noted.
Assessment / Plan
Clinical sepsis
Leukocytosis; improved
Hyponatremia
Acute hyperkalemia; improved
ALVA
HIV
- Patient reports noncompliance with medications recently.
Substance abuse
- UDS positive for amphetamine, methamphetamine, THC
Protein calorie malnutrition (BMI = 19)
Generalized anxiety disorder
Failure to thrive
Transgender female
Recommendations:
Continue empiric Zosyn for the present. Dose has been adjusted for renal insufficiency. Will continue to trend creatinine to optimize dosing.
No evidence of MRSA at this point; will discontinue further vancomycin.
Patient reports noncompliance with Biktarvy. Additionally, antiretroviral co-formulations cannot be given in renal failure. Will discontinue Biktarvy for now until a more full discussion can be made regarding compliance with medications. Risk of
viral resistance is very high and noncompliant patients, and cannot be reversed.
CD4 count has been ordered. Given that patient is noncompliant with antiretroviral medications, there is no utility in doing a viral load at this point.
Patient with history of chlamydia in Aug. Will recheck.
Continue to trend white count, creatinine, temperature curve.
Care Review
Plan reviewed with: Physician (Critical care.)
--- NOTE | 2024-04-25 11:44 | PTCARENOTE ---
Patient now written for medr. Vanco level sent. CHG bath completed. condom cath replaced. advanced to clear liquid diet.
--- NOTE | 2024-04-25 12:42 | CM ---
Reviewed the chart notes and spoke with the patient at the bedside. Patient was drowsy. The patient confirmed he lives with a friend in a one story home with one step to enter. The patient reports on DME or SNF in the past, but has had [facility]
in the past. The patient confirmed his pharmacy of choice is the [facility]. CM continues to be available to patient/family and is monitoring medical plan for needs at discharge.
Plan: Discharge to home when medically stable. No needs anticipated at this time.
--- NOTE | 2024-04-25 14:36 | W.PN.UPDATE ---
Update Note
Progress Note Update
Pt is 39 yo transgender female, seen by Psychiatry during previous hospital stay Aug 2023. Approached pt for psychiatric consult; pt closing eyes, appears drowsy/fatigued. Pt nodded/shook her head slightly in response, declined to talk with
Psychiatry today. Pt denies any immediate issues; agrees to let staff know if she wishes to have Psychiatry come back.
Will follow peripherally; will see the patient if immediate issues arise.
--- NOTE | 2024-04-25 15:30 | PTCARENOTE ---
04/25- Patient transferred and oriented to unit without issue. Patient is currently AAOX3 but lethargic, withdrawn, flat affect. Skin CDI. +PulsesX4. R-IJ HD Cath site CDI. BiCarb infusing into L-wrist INT without issue. Patient denies any
needs at this time.
[2024-04-25] MEDS: THORAZINE 25 MG PO (18:13)
[2024-04-26 01:18] VITALS: BP 94/52
[2024-04-26] MEDS: ZOSYN 50 IV ×2 (03:50→10:45)
[2024-04-26] MEDS: SODIUM BICARBONATE 1150 MEQ IV (03:50)
[2024-04-26 03:59] VITALS: BP 97/55
--- NOTE | 2024-04-26 07:38 | W.PN.HOSP.TC ---
Addendum entered and electronically signed by Rishabh Story MD 04/26/24 12:16:
I saw and evaluated the patient. I reviewed the resident�s note and agree with findings and plan as documented in the resident�s note.
Denies CP/SOB. c/o back pain.
Pt seen and examined with nurse Brea Molina present at bedside:
NAD, awake and alert, appears chronically ill
remains RRR, normal S1/S2
remains CTAB
CN2-12 intact
Acute kidney injury with anion gap metabolic acidosis:
-Acute metabolic anion gap acidosis has resolved with sodium bicarb drip
-Creatinine improving
-Hyperkalemia now resolved
-Stop IV fluids
-Discussed with nephrology
Severe protein calorie malnutrition
HIV POS: Noncompliant with HAART. Resume Biktarvy as renal fxn has improved.
Illicit drug abuse, counseled on cessation of illicit drug use
Original Note:
Today's Communication/Plan
-
C/w Abx. Encourage PO intake, pending cultures. Likely DC tomorrow.
Assessment / Plan
Assessment / Plan
39 yo transgender (Male to female) with a past medical history of HIV (diagnosed 2023, medication noncompliance), history of brachial plexus injury (childbirth), anxiety, depression who presented to the ED with severe nausea and hematuria.
#Severe Sepsis, uncertain etiology
- Hypothermia, elevated WBC count, hypotension requiring IVF
- BP improved s/p fluid bolus, did not require pressors
- Blood cultures pending. Urine cultures pending. Urine negative for G&C. ID d/c Van, c/w Zosyn
- Pressures stable today, normothermic, WBC downtrending.
- Denies recent IV drug use, though admits was a heroine user 17 years ago.
- C/w Zosyn as above pending cultures.
#Acute Renal failure, possibly secondary to HIV Associated nephropathy vs. Sepsis/Pre-renal
- Severe hypotension/sepsis
- UA (+) for blood, protein, BUN/Cr today 58/1.7
- Making urine, has condom catheter placed.
- Had CVC placed on admission in case dialysis was needed. Unlikely given clinical improvement; CVC to be removed today.
#Acute Hyponatremia
- 125 on admission, 128 now.
- D/c bicarb for now, bicarb 29.
- Repeat BMP in the AM.
#HIV, noncompliant with medication
- CD4 count pending
- Hold home Biktarvy in the setting of ALVA
#Metabolic Acidosis with respiratory compensation (resolved)
- Anion Gap 26, now resolved.
- Nephro following d/c bicarb drip
#Acute Hyperkalemia (resolved)
- 7.0 on admission, s/p 10U insulin D5W in ED, calcium gluconate, Lokelma
- Stable
#Protein Calorie malnutrition - BMI <18
- Advanced regular diet
#Anxiety
#Depression
#Transgender
- Psych consult place; patient did not want to discuss with Psych at this time. They will follow peripherally.
#Polysubstance Use
- (+) For Amphetamine/Methamphetamine/MJ
#Dispo - Med/Surg w/ Tele
#DVT PPx - Heparin SC
#Diet - NPO
#Code Status - Full Code
Anticipated Discharge: Within 24 hours
Subjective/Interval History
-
Seen in the AM. More awake and alert compared to yesterday. Appetite returning. Has mild back pain, but other than that she has no acute complaints.
Objective Data
-
Labs:
Laboratory Results
04/26/24
06:57
WBC Pending
Hgb Pending
Hct Pending
Plt Count Pending
Sodium Pending
Potassium Pending
Chloride Pending
Carbon Dioxide Pending
BUN Pending
Creatinine Pending
Glucose Pending
Calcium Pending
Vital Signs:
Vital Signs
Temp Pulse Resp BP Pulse Ox
98.6 F 105 20 97/55 99
04/25/24 23:42 04/26/24 03:59 04/25/24 23:42 04/26/24 03:59 04/25/24 23:42
I&O
04/25/24 04/26/24 04/27/24
06:59 06:59 06:59
Intake Total 550 / 650 1180 / 1180
Output Total 750 / 750 1700 / 1700
Balance -200 / -100 -520 / -520
Review of Systems
-
History Source: Patient
All other systems: Reviewed and negative
Musculoskeletal: Reports Other (Back pain)
Physical Exam
-
General: No Apparent Distress and Comfortable; Negative Well Developed or Well Nourished
HEENT: Normocephalic, Atraumatic, Moist Mucous Membranes, Anicteric, [place] Conjunctivae and PERRLA
Respiratory: Clear to Auscultation
Cardiac: S1/S2 and Irregular Rhythm
Breast: N/A
GI: Soft, Nontender, Nondistended and Normal Bowel Sounds
Rectal: Deferred by Provider
Genito-urinary: Clear Urine
Musculoskeletal: No Clubbing, No Cyanosis and No Edema
Skin: IV Access / Catheter Site (R side CVC )
Neuro: AO x 3, No Motor Deficits and No Sensory Deficits
[2024-04-26 07:54] VITALS: BP 100/61
[2024-04-26 07:54] LABS: Hematocrit 29.6 % (39.0-52.0); Hemoglobin 10.3 g/dL (13.0-18.0); Mean Corp Hgb Conc. 34.8 g/dL (33.0-37.0); Mean Corpuscular Hgb 25.1 pg (27.0-31.0); Mean Corpuscular Volume 72.2 fL (80.0-94.0); Mean Platelet Volume 9.2 fL (7.4-10.4); Platelet Count 270 10^3/uL (130-400); Red Cell Dist. Width 15.9 % (11.5-14.5); White Blood Cell Count 4.8 10^3/uL (4.8-10.8)
[2024-04-26 08:19] LABS: Blood Urea Nitrogen 58 mg/dl (9-20); Carbon Dioxide 29 mmol/L (22-30); Chloride 89 mmol/L (98-107); Estimated Creatinine Clearance 47 ml/min; Glucose 97 mg/dl (70-99); Sodium 128 mmol/L (135-145); eGFR 52.26
[2024-04-26] MEDS: HEPARIN 5000 UNITS SC ×2 (10:39→20:20)
[2024-04-26] MEDS: TYLENOL 1000 MG PO ×2 (10:53→21:09)
--- NOTE | 2024-04-26 11:09 | W.PN.NEPH.PH ---
Today's Communication / Plan
-
follow BMP
Assessment/Plan
-
IMP:
Hypothermic Hypotensive - presume sepsis
Life threatening hyperkalemia
ALVA-baseline cr 0.9
Hyponatremia
Hi gap MA @26
Acidemia from met acidosis
Polysubstance abuse - UDS POS Amphetamines, Meth, THC
HIV Positive : Non compliance with HIV Meds
Protein Calorie Malnutrition with BMP 18
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
Generalized anxiety disorder
transgender male to female
Nephrolithiasis on CT in 08/2023
h/o U retention
Plan:
follow BMP
cap iVF
no biktarcy
no samsca today, allow increase in solute intake
broad spectrum abx, await cx results
dc HD CVC
-
-
Date of Service: April 26, 2024
CC / HPI / ROS
-
Chief Complaint:
ALVA
History of Present Illness:
ALVA/Cr down to 1.7
Na 128
acidosis normalized
BP stable
K normal
nonoliguric condom catheter
Review of Systems:
no CP/SOB
starting to eat
Labs
-
Labs:
WBC 4.8 10^3/uL (4.8-10.8) 04/26/24 06:57
RBC 4.10 10^6/uL (4.70-6.10) L 04/26/24 06:57
Hgb 10.3 g/dL (13.0-18.0) L 04/26/24 06:57
Hct 29.6 % (39.0-52.0) L 04/26/24 06:57
Plt Count 270 10^3/uL (130-400) 04/26/24 06:57
Sodium 128 mmol/L (135-145) L 04/26/24 06:57
Potassium 4.0 mmol/L (3.5-5.1) 04/26/24 06:57
Chloride 89 mmol/L (98-107) L 04/26/24 06:57
Carbon Dioxide 29 mmol/L (22-30) 04/26/24 06:57
BUN 58 mg/dl (9-20) H 04/26/24 06:57
Creatinine 1.7 mg/dL (0.7-1.3) H 04/26/24 06:57
eGFR 52.26 04/26/24 06:57
Glucose 97 mg/dl (70-99) 04/26/24 06:57
Calcium 8.0 mg/dl (8.4-10.2) L 04/26/24 06:57
Phosphorus 5.5 mg/dl (2.5-4.5) H 04/25/24 04:11
Albumin 3.3 g/dl (3.5-5.0) L 04/25/24 04:11
Physical Exam
-
Vital Signs:
Vital Signs
Temp Pulse Resp BP Pulse Ox
98.2 F 107 20 100/61 98
04/26/24 07:54 04/26/24 07:54 04/26/24 07:54 04/26/24 07:54 04/26/24 07:54
Cardiovascular:: Regular rate and rhythm
Respiratory:: Bilateral: Coarse
Lung Excursion:: Normal
Abdomen:: Nontender and Soft
Bowel Sounds:: Normal
Extremity Edema:: None: Bilateral:
[2024-04-26 15:25] VITALS: BP 90/47
--- NOTE | 2024-04-26 15:35 | W.PN.ID1 ---
Date of Service
Date of Service: April 26, 2024
Today's Communication
D/C abx.
Assessment / Plan
Clinical sepsis
Leukocytosis; improved
Hyponatremia
Acute hyperkalemia; improved
ALVA
HIV
- Patient reports noncompliance with medications recently.
Substance abuse
- UDS positive for amphetamine, methamphetamine, THC
Protein calorie malnutrition (BMI = 19)
Generalized anxiety disorder
Failure to thrive
Transgender female
Recommendations:
Cultures negative to date. Prior symptomatology may have been secondary to ALVA and volume depletion.
Discontinue further Zosyn.
Patient reports noncompliance with Biktarvy. Additionally, antiretroviral co-formulations cannot be given in renal failure. Will discontinue Biktarvy for now until a more full discussion can be made regarding compliance with medications. Risk of
viral resistance is very high and noncompliant patients, and cannot be reversed.
Will follow-up in the office following discharge to discuss social support system and ability to take her chronic medications. Patient may ultimately require a higher level of care long-term.
CD4 count has been ordered. Given that patient is noncompliant with antiretroviral medications, there is no utility in doing a viral load at this point.
Patient with history of chlamydia in Aug. Repeat testing negative.
Continue to trend white count, creatinine, temperature curve.
Chief Complaint
-: Clinical Sepsis
Subjective / Review of Systems
Patient seen and examined. Reports overall feeling improved today. Denies specific complaints.
Review of Systems: No Fever and No Chills
Vital Signs / Physical Exam
Vital Signs
Vital Signs
Temp Pulse Resp BP Pulse Ox
98.1 F 103 20 90/47 97
04/26/24 15:25 04/26/24 15:25 04/26/24 15:25 04/26/24 15:25 04/26/24 15:25
Physical Exam
Constitutional: No Acute Distress, Comfortable, Chronically Ill and Non-toxic
Eyes: Sclera Anicteric
Cardiovascular: S1/S2; Negative S3/S4
Gastrointestinal: Soft, Non Tender and Non Distended
Extremities: Negative Edema, Cyanosis or Erythema
Neurological: Awake and Alert
Psychological: Calm
Objective Data
Lab Data
Lab Results
04/26/24 06:57
04/26/24 06:57
PT 14.7 Sec (11.4-14.6) H 04/25/24 04:11
INR 1.17 04/25/24 04:11
APTT 30.7 Sec (23.4-35.0) 04/25/24 04:11
Estimated Creat Clear 47 ml/min 04/26/24 06:57
Lactic Acid Cancelled 04/25/24 20:00
Total Bilirubin 1.0 mg/dl (0.2-1.3) 04/25/24 04:11
AST 17 U/L (17-59) 04/25/24 04:11
ALT 19 U/L (0-50) 04/25/24 04:11
Alkaline Phosphatase 268 U/L (38-126) H 04/25/24 04:11
Most recent labs reviewed.
Micro Results:
04/24/24 21:24 Urine Culture - Final
Urine
04/25/24 04:11 MRSA Screen - Final
Nose No Methicillin Resistant Staphylococcus aureus isolated.
04/24/24 20:38 Blood Culture - Preliminary
Blood/Venous No Growth in 24 hours- Final report to follow
04/25/24 12:55 Chlamydia trachomatis (PCR) - Final
Urine Neisseria gonorrhoeae (PCR) - Final
04/24/24 22:21 Influenza Types A & B (YUMIKO) - Final
Nasal Swab Negative for Influenza A & B, NAAT
Negative results must be combined with clinical observations
and patient history.
Nucleic Acid Amplification test (NAAT)performed on the
[employer] platform.
Imaging:
04/25/2024 Renal ultrasound (without bladder) : Moderate hydronephrosis of bilateral kidneys, grossly unchanged compared to prior CT of 08/12/2023
04/24/2024 CXR (portable): No active cardiopulmonary disease noted.
[2024-04-26] MEDS: NSS 1000 IV (16:38)
[2024-04-26] MEDS: NICODERM TRANSDERMAL 21 MG TRANSDERM (16:39)
[2024-04-26] MEDS: ATIVAN 0.5 MG PO (17:30)
--- NOTE | 2024-04-26 18:10 | VATNOTE ---
right hd non tunneled catheter removed per protocol. Pt. and tech instructed to lay flat for next 20 min. NO bleeding at site.
[2024-04-26 18:26] LABS: CD4 % of Cells Analyzed 11 % (32-64); CD4 Absolute Count 169 cells/uL (430-1800)
[2024-04-26 23:12] VITALS: BP 102/53
[2024-04-27] MEDS: NSS 1000 IV (04:17)
[2024-04-27] MEDS: TYLENOL 1000 MG PO (06:23)
[2024-04-27 07:05] VITALS: BP 111/60
[2024-04-27 08:34] LABS: Hematocrit 28.4 % (39.0-52.0); Hemoglobin 9.6 g/dL (13.0-18.0); Mean Corp Hgb Conc. 33.8 g/dL (33.0-37.0); Mean Corpuscular Hgb 24.4 pg (27.0-31.0); Mean Corpuscular Volume 72.3 fL (80.0-94.0); Mean Platelet Volume 8.9 fL (7.4-10.4); Platelet Count 281 10^3/uL (130-400); Red Blood Cell Count 3.93 10^6/uL (4.70-6.10); Red Cell Dist. Width 15.9 % (11.5-14.5); White Blood Cell Count 4.6 10^3/uL (4.8-10.8)
[2024-04-27] MEDS: HEPARIN 5000 UNITS SC (08:46)
[2024-04-27] MEDS: NICODERM TRANSDERMAL 21 MG TRANSDERM (08:47)
[2024-04-27 09:27] LABS: Blood Urea Nitrogen 32 mg/dl (9-20); Carbon Dioxide 29 mmol/L (22-30); Chloride 94 mmol/L (98-107); Estimated Creatinine Clearance 80 ml/min; Glucose 101 mg/dl (70-99); Potassium 3.6 mmol/L (3.5-5.1); Sodium 133 mmol/L (135-145); eGFR > 60.00
--- NOTE | 2024-04-27 09:38 | CM ---
Addendum entered by Annalee Olvera 04/27/24 15:11:
Plan is to home with [facility] visiting nurses referral sent to [facility]
[phone]

Original Note:
Chart reviewed and plan is for patient to return to previous setting, psych has been consulted. Patient did not engage with psychiatry.
Plan; Home when stable, no needs.
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
[2024-04-27] MEDS: COLACE 100 MG PO (11:06)
[2024-04-27] MEDS: SENOKOT 8.6 MG PO (11:06)
--- NOTE | 2024-04-27 12:11 | W.PN.UPDATE ---
Update Note
Progress Note Update
reviewed chart dr pang noted patient did not wish to see psych. please call us if he changes his mind.
[2024-04-27 13:00] VITALS: BP 104/66; BP 112/67; PULSE 99
[2024-04-27 13:06] VITALS: BP 104/66; BP 112/67; PULSE 99
--- NOTE | 2024-04-27 13:18 | W.PN.NEPH.PH ---
Today's Communication / Plan
-
follow labs, ok to d/c IVF -defer to primary
Assessment/Plan
-
IMP:
Hypothermic Hypotensive - presume sepsis
Life threatening hyperkalemia
ALVA-baseline cr 0.9
Hyponatremia
Hi gap MA @26
Acidemia from met acidosis
Polysubstance abuse - UDS POS Amphetamines, Meth, THC
HIV Positive : Non compliance with HIV Meds
Protein Calorie Malnutrition with BMP 18
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
Generalized anxiety disorder
transgender male to female
Nephrolithiasis on CT in 08/2023
h/o U retention
Plan:
ALVA-improving cr to 1 baseline
bilat hydro still present on US -no change from Aug
given improving cr and UOP -would need to follow
hyponatremia -improving to 133
follow BMP
abx per ID
BP are soft likely chronic, check cortisol
Anemia-hb decreasing likely dilutional, microcytic but adequate fe stores , Fe sat high 51%
must follow ID and after d/c
d/w pt
-
-
Date of Service: April 27, 2024
CC / HPI / ROS
-
Chief Complaint:
ALVA
History of Present Illness:
ALVA/Cr down to 1
Na 133 better
acidosis normalized
BP stable
K normal
nonoliguric condom catheter
Review of Systems:
no CP/SOB
starting to eat
no n/v
Labs
-
Labs:
WBC 4.6 10^3/uL (4.8-10.8) L 04/27/24 08:03
RBC 3.93 10^6/uL (4.70-6.10) L 04/27/24 08:03
Hgb 9.6 g/dL (13.0-18.0) L 04/27/24 08:03
Hct 28.4 % (39.0-52.0) L 04/27/24 08:03
Plt Count 281 10^3/uL (130-400) 04/27/24 08:03
Sodium 133 mmol/L (135-145) L 04/27/24 08:03
Potassium 3.6 mmol/L (3.5-5.1) 04/27/24 08:03
Chloride 94 mmol/L (98-107) L 04/27/24 08:03
Carbon Dioxide 29 mmol/L (22-30) 04/27/24 08:03
BUN 32 mg/dl (9-20) H 04/27/24 08:03
Creatinine 1.0 mg/dL (0.7-1.3) 04/27/24 08:03
eGFR > 60.00 04/27/24 08:03
Glucose 101 mg/dl (70-99) H 04/27/24 08:03
Calcium 8.0 mg/dl (8.4-10.2) L 04/27/24 08:03
Phosphorus 5.5 mg/dl (2.5-4.5) H 04/25/24 04:11
Albumin 3.3 g/dl (3.5-5.0) L 04/25/24 04:11
Physical Exam
-
Vital Signs:
Vital Signs
Temp Pulse Resp BP Pulse Ox
97.9 F 94 18 111/60 97
04/27/24 07:05 04/27/24 07:05 04/27/24 07:05 04/27/24 07:05 04/27/24 07:05
Cardiovascular:: Regular rate and rhythm
Respiratory:: Bilateral: CTA
Lung Excursion:: Normal
Abdomen:: Nontender and Soft
Extremity Edema:: None: Bilateral:
Ferris Catheter: No
[2024-04-27 15:09] VITALS: BP 94/57
--- NOTE | 2024-04-27 15:24 | W.PN.UPDATE ---
Update Note
Progress Note Update
Due to non-compliance with medication, patient cannot be discharged on Biktarvy. Will need to follow up with ID as outpatient for evaluation/continued treatment.
[2024-04-27] MEDS: NSS IV (15:42)
[2024-04-27 15:57] LABS: Cortisol, Random 10.7 ug/dl
--- NOTE | 2024-04-27 15:57 | W.PN.ID1 ---
Date of Service
Date of Service: April 27, 2024
Today's Communication
Follow-up in office following D/C
Assessment / Plan
Clinical sepsis
Leukocytosis; improved
Hyponatremia
Acute hyperkalemia; improved
ALVA
HIV
- Patient reports noncompliance with medications recently.
Substance abuse
- UDS positive for amphetamine, methamphetamine, THC
Protein calorie malnutrition (BMI = 19)
Generalized anxiety disorder
Failure to thrive
Transgender female
Recommendations:
Cultures negative to date. Prior symptomatology may have been secondary to ALVA and volume depletion. ALVA resolved.
Patient reports noncompliance with Biktarvy. No antiretroviral therapy for now until a more full discussion can be made regarding compliance with medications. Risk of viral resistance is very high and noncompliant patients, and cannot be reversed.
Will follow-up in the office following discharge to discuss social support system and ability to take her chronic medications. Patient may ultimately require a higher level of care long-term.
Patient with history of chlamydia in Aug. Repeat testing negative.
Follow-up in office in 2-3 weeks.
Chief Complaint
-: Clinical Sepsis and Other (ALVA)
Subjective / Review of Systems
Review of Systems: No Fever
Vital Signs / Physical Exam
Vital Signs
Vital Signs
Temp Pulse Resp BP Pulse Ox
98.1 F 105 17 94/57 96
04/27/24 15:09 04/27/24 15:09 04/27/24 15:09 04/27/24 15:09 04/27/24 15:09
Physical Exam
Constitutional: No Acute Distress, Comfortable, Chronically Ill and Non-toxic
Eyes: Sclera Anicteric
Cardiovascular: S1/S2; Negative S3/S4
Gastrointestinal: Soft, Non Tender and Non Distended
Extremities: Negative Edema, Cyanosis or Erythema
Neurological: Awake and Alert
Psychological: Calm
Objective Data
Lab Data
Lab Results
04/27/24 08:03
04/27/24 08:03
PT 14.7 Sec (11.4-14.6) H 04/25/24 04:11
INR 1.17 04/25/24 04:11
APTT 30.7 Sec (23.4-35.0) 04/25/24 04:11
Estimated Creat Clear 80 ml/min 04/27/24 08:03
Lactic Acid Cancelled 04/25/24 20:00
Total Bilirubin 1.0 mg/dl (0.2-1.3) 04/25/24 04:11
AST 17 U/L (17-59) 04/25/24 04:11
ALT 19 U/L (0-50) 04/25/24 04:11
Alkaline Phosphatase 268 U/L (38-126) H 04/25/24 04:11
Most recent labs reviewed.
Micro Results:
04/24/24 20:38 Blood Culture - Preliminary
Blood/Venous No Growth in 48 hours- Final report to follow
04/24/24 21:24 Urine Culture - Final
Urine
04/25/24 04:11 MRSA Screen - Final
Nose No Methicillin Resistant Staphylococcus aureus isolated.
04/25/24 12:55 Chlamydia trachomatis (PCR) - Final
Urine Neisseria gonorrhoeae (PCR) - Final
04/24/24 22:21 Influenza Types A & B (YUMIKO) - Final
Nasal Swab Negative for Influenza A & B, NAAT
Negative results must be combined with clinical observations
and patient history.
Nucleic Acid Amplification test (NAAT)performed on the
[employer] platform.
Imaging:
04/25/2024 Renal ultrasound (without bladder) : Moderate hydronephrosis of bilateral kidneys, grossly unchanged compared to prior CT of 08/12/2023
04/24/2024 CXR (portable): No active cardiopulmonary disease noted.
Care Review
Plan reviewed with: Physician (Hospitalist and Resident)
--- NOTE | 2024-04-27 17:06 | W.DCSUMMARY ---
Addendum entered and electronically signed by Rishabh Story MD 04/27/24 17:40:
Read, reviewed, and agree. See same day progress note for additional details.
Total time spent on d/c = 36 min. This included today's physical exam, progress note, review of laboratory and diagnostic data, preparation of discharge documents and prescriptions, and discussions about the pt's hospital course and discharge plan
with the patient and other medical representative involved in the patient's care.
Original Note:
Discharge Summary
Discharge Data
Date of Admission: 04/24/24
Date of Discharge: 04/27/24
-
Pending Results: No
Hospital Course
Discharging Physician : Dr. Jann Davila, Dr. Rishabh Story
Disposition : Home
Primary care physician : El Perez MD
Principal Discharge diagnosis : Hyperkalemia, Hyponatremia, Acute Renal Failure, Metabolic Acidosis, Severe Sepsis, Low Back Pain
Chronic Discharge diagnosis : HIV/AIDS, Anxiety, Depression, Gender Dysphoria
Hospital Course :
Chad Mercer arrived to the [facility] on 04/24/2024 for symptoms of persistent nausea, inability to urinate, loss of appetite, chills, and fatigue lasting for over 2 weeks, but which worsened acutely in the preceding two days. She was evaluated and
deemed to be in septic shock, for which large bolus of NS was given. Lab work demonstrated severe hyperkalemia above 7.0 for which 10U insulin and Lokelma were given. She was also found to have high anion gap metabolic acidosis for which a bicarb
drip was started. She was begun on empiric Zosyn and Vancomycin for sepsis. Further lab work demonstrated a BUN/Cr ratio of 109/4.7. A dialysis catheter was urgently placed in case the patient should need dialysis for severe electrolyte
abnormalities and acute renal failure.
She responded well to Insulin and bicarb drip. In the morning of hospital day 1 she was downgraded from ICU to medical floors. Given a history of HIV and a recent history of HAART medication non-compliance, a CD4 count was ordered. Urine Drug
Screen during this admission was positive for methamphetamines, amphetamines, and marijuana. During the course of her hospital stay her creatinine continued to improve and the potassium quickly corrected. On hospital day 4, her creatinine was 1.0
and her anion gap had closed by hospital day 3. On the morning of hospital day 4 the patient was complaining of low back pain. CD4 counts resulted by this point and were 169. Given her immunocompromised state and history of IV heroine use in the
setting of low back pain and lower extremity weakness, an MRI of the lumbar spine was done, the results of which are shown below. A PT/OT evaluation demonstrated a need for physical and occupational therapy in the home setting.
A referral was sent to [facility] for VN services for PT and OT. The Lumbar MRI demonstrated a bulging disk at the L4-5 level and moderate spinal canal stenosis which was also likely contributing to her weakness and pain, and which will also be
benefitted by PT/OT. It was expressed to Bonilla the importance of follow up care with her ID doctor for continued management of HIV/AIDS. It was also explained that considering medication non-compliance and the risk of creating viral resistance, we
could not discharge her on HAART medication. She was discharged home on hospital day 4 with a new prescription for Nicotine patches and a referral for VN.
Important imaging findings :
US Renal Only W/O Bladder:
Moderate hydronephrosis of each kidney, grossly unchanged compared to prior CT dated 08/12/2023.
MR Lumbar W/o & With Contrast:
Large central disc protrusion at L4-5 abutting the traversing right L5 nerve root in the lateral recess and causing moderate spinal canal stenosis at this level.
Moderate bilateral hydroureteronephrosis.
Procedure findings :
Bedside dialysis catheter placement:
The procedure was performed at the patient's bedside due to instability.
Time-out was performed with all involved personnel, to confirm correct patient and correct procedure. Maximum sterile barrier techniques were used including wearing cap and mask and sterile gown and sterile gloves and a large sterile sheet and hand
hygiene and 2% chlorhexidine for cutaneous antisepsis.
After sterile preparation of the right neck, ultrasound was utilized to evaluate the right internal jugular vein. 2% lidocaine was then administered subcutaneously for local anesthesia. The internal jugular vein was accessed with a 21 gauge needle
followed by placement of a guidewire and a 4-Irish introducer. A standard 0.035' guidewire was then advanced, the tract was dilated, and a nontunneled hemodialysis catheter was advanced into position. There was good blood flow from both lumens.
The catheter was secured at the skin entry site. There were no immediate complications.
Discharge Plan
-
Patient Disposition: Home (Routine Discharge)
Discharge Diagnosis/Procedures: Metabolic Acidosis, Hyperkalemia, Hyponatremia, Acute Renal Failure, Severe Sepsis
Condition: Fair
Diet: As tolerated
Activity: As tolerated
Driving Restrictions: As prior to admission
Bathing Restrictions: None
Other Services: VN
Referrals:
El Perez MD [Family Provider] -
Prescriptions:
New
nicotine 21 mg/24 hr Patch 24 Hour
21 mg transdermal DAILY 30 Days Qty: 30 0RF
Continued
acetaminophen [Tylenol Extra Strength] 500 mg Tablet
1,000 mg PO BIDPRN PRN (Reason: mild pain)
Discontinued
Biktarvy 50-200-25 mg Tablet
1 tab PO DAILY
Discharge Orders:
Discharge Patient (As Directed); Ordered 04/27/24
Ordered By: Jann Davila
Discharge Date and Time
Print Language: UPPER SORBIAN
== END 2024-04-27 18:22 | disposition home health service (06) | DRG 974 ==
LOC: 4 WEST ACU 23:51
PROVIDERS: Nurse Practitioner Family; Radiology Vascular & Interventional Radiology; Registered Nurse; Specialist; ADMITTING PHYSICIAN Internal Medicine; ATTENDING PHYSICIAN Internal Medicine; CONSULT PHYSICIAN Internal Medicine; EMERGENCY PHYSICIAN Emergency Medicine; FAMILY PHYSICIAN Family Medicine; OTHER PHYSICIAN Internal Medicine Critical Care Medicine; OTHER PHYSICIAN Internal Medicine Infectious Disease
PROC: 05HM33Z Insertion of Infusion Device into Right Internal Jugular Vein, Percutaneous Approach (ICD-10-PCS; 2024-04-25)
DX: A41.9 Sepsis, unspecified organism (principal); R65.21 Severe sepsis with septic shock; B20 Human immunodeficiency virus [HIV] disease; E44.1 Mild protein-calorie malnutrition; E87.4 Mixed disorder of acid-base balance; N17.9 Acute kidney failure, unspecified; E87.1 Hypo-osmolality and hyponatremia; Z68.1 Body mass index [BMI] 19.9 or less, adult; N13.6 Pyonephrosis; E87.20 Acidosis, unspecified; E87.3 Alkalosis; R64 Cachexia; F17.200 Nicotine dependence, unspecified, uncomplicated; Z11.52 Encounter for screening for COVID-19; E87.5 Hyperkalemia; Z91.148 Patient's other noncompliance with medication regimen for other reason; F41.1 Generalized anxiety disorder; R62.7 Adult failure to thrive; F64.0 Transsexualism
CPT/HCPCS: 36556; 71045; 72158; 76775; 76937; 80048; 80053; 80202; 80306; 80307; 81003; 81015; 82533; 82570; 82728; 82805; 82962; 83540; 83550; 83605; 83735; 83930; 83935; 84100; 84132; 84156; 84300; 85025; 85027; 85610; 85730; 86361; 87040; 87070; 87086; 87491; 87502; 87591; 87811; 93005; 96361; 96365; 96375; 97163; 97167; 99291; 99406; C1752; G0257

== ENCOUNTER 2024-05-20 16:45 | Inpatient (IN) | payer OTHER, SELFPAY ==
[2024-05-20] VITALS (19 sets, daily range): BP systolic 84–132; BP diastolic 56–110; BMI 17.7
--- NOTE | 2024-05-20 12:22 | ED.GENMED ---
ED Provider Triage
<Shakeel Huston PA-C - Last Filed: 05/20/24 12:27>
-
Patient seen by provider in Triage?: Seen in Triage
Attestation: A medical screening examination has been initiated by a qualified medical provider. Based on the assessment performed at this time, it has been determined that an emergent medical condition may exist and the patient has been informed
that further medical evaluation and possible additional diagnostic testing may be needed.
HPI: 39-year-old male who identifies as female presenting to the ER for generally feeling unwell. Patient states this feels similar as to when she was recently here with acute renal failure. Patient notes that she has not been eating or drinking
over the last 5 days. Not making any urine presently.
GENERAL: Alert , patient appears quite ill
EYE: No visual abnormalities.
NECK: Trachea midline
ENT: No visible abnormalities.
LUNGS: No acute respiratory distress
NEUROLOGICAL: Alert and oriented
SKIN: Skin intact. No visible changes.
MUSCULOSKELETAL: Moving extremities normally
PSYCH: Normal and appropriate interaction.
This is a medical evaluation conducted in person to initiate diagnostic evaluation and provide initial therapeutics. Please see further documentation by the treating clinician.
Due to patient's past medical history and current presentation patient was brought back immediately to the emergency department.
History of Present Illness
<Shakeel Huston PA-C - Last Filed: 05/20/24 12:27>
General
Chief Complaint: Weakness
Time Seen by Provider: 05/20/24 13:54
<Jt Clarke DO - Last Filed: 05/20/24 15:55>
General
Source: patient and records
Exam Limitations: altered mental status
Nursing documentation reviewed up to this point in time: agreed with
History of Present Illness
History of Present Illness:
39-year-old transgender female HIV substance abuse presents with fatigue decreased p.o. intake, admitted recently with renal failure clinical sepsis friend who is with her states has not eaten much for couple days has gotten out of bed in a couple
days
Past History
<Shakeel Huston PA-C - Last Filed: 05/20/24 12:27>
Past History
ED Past Medical History: Psychiatric (Anxiety, depression), Other (Gender change, brachial plexus injury since - R) and Other (HIV positive)
ED Past Surgical History: Orthopedic
Social History
Tobacco: Smoker
Alcohol: Occasional
Drug: Former user
Personal: Single
Living: with roommate
<Jt Clarke DO - Last Filed: 05/20/24 15:55>
Social History
Employment: Not employed
Review of Systems
<Jt Clarke DO - Last Filed: 05/20/24 15:55>
Review of Systems
All Other Systems: Not applicable
Constitutional: Reports weight loss and fatigue; Denies fever
Respiratory: Reports no symptoms
Cardiac: Reports no symptoms
ABD/GI: Reports nausea
: Reports no symptoms
Musculoskeletal: Reports no symptoms
Neurological: Reports weakness
Phy Exam
<Jt Clarke DO - Last Filed: 05/20/24 15:55>
Physical Exam
Physical Exam:
Physical Exam
General: Chronically ill-appearing person
Neck: Frontal wasting dry lip
Heart: s1/s2 regular rate and rhythm, no murmur. equal radial pulses.
Lungs: no acute respiratory distress. clear bilaterally
Abdomen: Flat mild diffuse tenderness
Neuro: alert and oriented. Globally weak
Skin: no rash
Psychiatric: Flat affect
Extremities: no edema.
Course
<Shakeel Huston PA-C - Last Filed: 05/20/24 12:27>
Orders/Labs/Results
Orders:
Orders
05/20/24 12:25
Electrocardiogram (*1) Urgent
Reason for Study: QTc Monitoring
Other Reason for Exam: suspected renal failure
EKG- Treatment ONCE
05/20/24 12:54
Complete Blood Count/With Diff Urgent
Lactic Acid Q4H
Comment: CANCEL 2nd LACTIC ACID IF 1st LACTIC ACID IS LESS THAN 2
05/20/24 13:50
Basic Metabolic Panel Urgent
05/20/24 14:49
Ondansetron Injectable [Zofran] 4 mg IV NOW STA
05/20/24 14:50
Ondansetron Injectable [Zofran] 4 mg .ROUTE .STK-MED ONE
05/20/24 14:51
Ondansetron Injectable [Zofran] 4 mg IV NOW STA
05/20/24 15:02
ABG [Arterial Blood Gas] Urgent
%Oxygen/Room Air: ra
CR Chest Portable - 1 View Urgent
Comment:
Reason For Exam: sob
Reason Study Needs to be Portable: Patient Unstable
05/20/24 15:05
Bladder Scan- Treatment ONCE
05/20/24 15:13
Basic Metabolic Panel Urgent
CPK [Creatine Phosphokinase] Urgent
Urine Culture Reflexed from UA [Urinalysis Reflex To Culture] Urgent
Date Specimen was Collected: 05/20/24
Time Specimen was Collected: 15:09
05/20/24 15:15
Dextrose 5%/Water 1000 ml [D5w] 1,000 ml Sodium Bicarbonate 150 meq IV 200 mls/hr
05/20/24 15:19
Calcium Gluconate 2 gram/100mL [Calcium Gluconate] 2 gram in 100 ml IV NOW
05/20/24 15:30
Calcium Gluconate 2 gram/100mL [Calcium Gluconate] 2 gram in 100 ml IV ONCE
05/20/24 16:30
Lactic Acid Q4H
Comment: CANCEL 2nd LACTIC ACID IF 1st LACTIC ACID IS LESS THAN 2
Abnormal Lab Results
05/20/24 05/20/24
12:54 13:50
WBC 12.5 H 10^3/uL
(4.8-10.8)
RBC 6.12 H 10^6/uL
(4.70-6.10)
MCV 71.2 L fL
(80.0-94.0)
MCH 24.0 L pg
(27.0-31.0)
RDW 18.2 H %
(11.5-14.5)
Plt Count 429 H 10^3/uL
(130-400)
Abs Immat Gran (auto) 0.3 H 10^3/uL
(0-0.05)
Absolute Neuts (auto) 9.1 H 10^3/uL
(1.4-6.5)
Absolute Monos (auto) 1.1 H 10^3/uL
(0.1-0.6)
Immature Gran % 2.4 H %
(0-0.5)
Lymphocytes % 13.3 L %
(20.5-51.1)
Sodium 127 L mmol/L
(135-145)
Chloride 95 L mmol/L
(98-107)
Carbon Dioxide 6 L* mmol/L
(22-30)
BUN 81 H mg/dl
(9-20)
Creatinine 3.7 H mg/dL
(0.7-1.3)
Glucose 106 H mg/dl
(70-99)
05/20/24 12:54
Vital Signs
Initial and Last Documented VS:
Initial Vital Signs
Temp Pulse Resp BP Pulse Ox
98.8 F 59 18 104/64 98
05/20/24 12:21 05/20/24 12:21 05/20/24 12:21 05/20/24 12:21 05/20/24 12:21
Last Documented Vital Signs
Temp Pulse Resp BP Pulse Ox
98.8 F 93 18 132/110 99
05/20/24 12:21 05/20/24 15:25 05/20/24 15:25 05/20/24 15:25 05/20/24 15:25
<Jt Clarke, DO - Last Filed: 05/20/24 15:55>
Orders/Labs/Results
Orders:
Orders
05/20/24 12:25
Electrocardiogram (*1) Urgent
Reason for Study: QTc Monitoring
Other Reason for Exam: suspected renal failure
EKG- Treatment ONCE
05/20/24 12:54
Complete Blood Count/With Diff Urgent
Lactic Acid Q4H
Comment: CANCEL 2nd LACTIC ACID IF 1st LACTIC ACID IS LESS THAN 2
05/20/24 13:50
Basic Metabolic Panel Urgent
05/20/24 14:49
Ondansetron Injectable [Zofran] 4 mg IV NOW STA
05/20/24 14:50
Ondansetron Injectable [Zofran] 4 mg .ROUTE .STK-MED ONE
05/20/24 14:51
Ondansetron Injectable [Zofran] 4 mg IV NOW STA
05/20/24 15:02
ABG [Arterial Blood Gas] Urgent
%Oxygen/Room Air: ra
CR Chest Portable - 1 View Urgent
Comment:
Reason For Exam: sob
Reason Study Needs to be Portable: Patient Unstable
05/20/24 15:05
Bladder Scan- Treatment ONCE
05/20/24 15:13
Basic Metabolic Panel Urgent
CPK [Creatine Phosphokinase] Urgent
Urine Culture Reflexed from UA [Urinalysis Reflex To Culture] Urgent
Date Specimen was Collected: 05/20/24
Time Specimen was Collected: 15:09
05/20/24 15:15
Dextrose 5%/Water 1000 ml [D5w] 1,000 ml Sodium Bicarbonate 150 meq IV 200 mls/hr
05/20/24 15:19
Calcium Gluconate 2 gram/100mL [Calcium Gluconate] 2 gram in 100 ml IV NOW
05/20/24 15:30
Calcium Gluconate 2 gram/100mL [Calcium Gluconate] 2 gram in 100 ml IV ONCE
05/20/24 16:30
Lactic Acid Q4H
Comment: CANCEL 2nd LACTIC ACID IF 1st LACTIC ACID IS LESS THAN 2
Abnormal Lab Results
05/20/24 05/20/24
12:54 13:50
WBC 12.5 H 10^3/uL
(4.8-10.8)
RBC 6.12 H 10^6/uL
(4.70-6.10)
MCV 71.2 L fL
(80.0-94.0)
MCH 24.0 L pg
(27.0-31.0)
RDW 18.2 H %
(11.5-14.5)
Plt Count 429 H 10^3/uL
(130-400)
Abs Immat Gran (auto) 0.3 H 10^3/uL
(0-0.05)
Absolute Neuts (auto) 9.1 H 10^3/uL
(1.4-6.5)
Absolute Monos (auto) 1.1 H 10^3/uL
(0.1-0.6)
Immature Gran % 2.4 H %
(0-0.5)
Lymphocytes % 13.3 L %
(20.5-51.1)
Sodium 127 L mmol/L
(135-145)
Chloride 95 L mmol/L
(98-107)
Carbon Dioxide 6 L* mmol/L
(22-30)
BUN 81 H mg/dl
(9-20)
Creatinine 3.7 H mg/dL
(0.7-1.3)
Glucose 106 H mg/dl
(70-99)
05/20/24 12:54
Vital Signs
Initial and Last Documented VS:
Initial Vital Signs
Temp Pulse Resp BP Pulse Ox
98.8 F 59 18 104/64 98
05/20/24 12:21 05/20/24 12:21 05/20/24 12:21 05/20/24 12:21 05/20/24 12:21
Last Documented Vital Signs
Temp Pulse Resp BP Pulse Ox
98.8 F 93 18 132/110 99
05/20/24 12:21 05/20/24 15:25 05/20/24 15:25 05/20/24 15:25 05/20/24 15:25
<Jt Clarke DO - Last Filed: 05/20/24 15:55>
MDM/Problems Addressed
Differential Diagnosis Includes:
Dehydration electrolyte abnormality infection substance abuse
MDM/Problems Addressed:
Fatigue weight loss
Chronic conditions affecting care:
HIV substance abuse
Acute Exacerbation and/or Progression of Chronic Illness:
HIV substance abuse
<Jt Clarke DO - Last Filed: 05/20/24 15:55>
*Radiology
Radiology exam reviewed: preliminary read by ED provider
*Pulse Oximetry
Patient hypoxic: no
*Medication Manager Interpretation
Rate: normal
Interpretation: normal
Heart Rate: 78
Rhythm: sinus
*Critical Care Note
Total Time (30-74mins, 75-104mins- exclusive of procedures): 30
<Jt Clarke DO - Last Filed: 05/20/24 15:55>
Update Note
Update Note:
Update labs are noted, acidosis concern for hyperkalemia treat with bicarb calcium IV fluids not retaining
Message sent to nephrology and hospitalist
ED Attending Note
<Shakeel Huston PA-C - Last Filed: 05/20/24 12:27>
-
Portions of this chart may have been created with voice recognition software.� Occasional wrong word or��sound alike� substitutions may have occurred due to the inherent limitations of voice recognition software.
Discharge Plan
Departure
Patient Disposition: Admit
Date of Disposition: 05/20/24
Time of Disposition: 15:55
Admit to: Telemetry
Presentation/result/management discussed w/ accepting MD/DO: Hospitalist
Patient with high blood pressure during this ER visit?: No
Condition: Serious
Covid-19: Not Applicable
Discharge Problem:
Lrtw-[id number]-oescve transgender person, Unspecified severe protein-calorie malnutrition, Cachexia, Body mass index (BMI) less than 16.5, Acute renal failure, Metabolic acidosis, Adult failure to thrive
Prescriptions:
No Action
acetaminophen [Tylenol Extra Strength] 500 mg Tablet
1,000 mg PO Q6HPRN PRN (Reason: mild pain)
Referrals:
El Perez MD [Family Provider] -
Interventions
Interventions:
*Risk Screen - Suicide Last Done: 05/20/24 12:21
*General Assessment Last Done: 05/20/24 12:21
ED- Fall Risk Assessment Last Done: 05/20/24 13:10
*ED COVID-19 Vaccine History Last Done: 05/20/24 12:21
ED- Cardiac Assessment Last Done: 05/20/24 13:10
ED- Neurological Assessment Last Done: 05/20/24 13:10
ED- Pulmonary Assessment Last Done: 05/20/24 13:10
Discharge Date and Time
Print Language: UKRAINIAN
[2024-05-20 13:20] LABS: % Basophils 0.6 % (0-2); % Eosinophils 1.6 % (0-6); % Immature Granulocytes 2.4 % (0-0.5); % Lymphocytes 13.3 % (20.5-51.1); % Monocytes 8.9 % (1.7-9.3); % Neutrophils 73.2 % (42.2-75.2); Absolute Basophils 0.1 10^3/uL (0-0.2); Absolute Eosinophils 0.2 10^3/uL (0-0.7); Absolute Immature Granulocytes 0.3 10^3/uL (0-0.05); Absolute Lymphocytes 1.7 10^3/uL (1.2-3.4); Absolute Monocytes 1.1 10^3/uL (0.1-0.6); Absolute Neutrophils 9.1 10^3/uL (1.4-6.5); Hematocrit 43.6 % (39.0-52.0); Hemoglobin 14.7 g/dL (13.0-18.0); Mean Corp Hgb Conc. 33.7 g/dL (33.0-37.0); Mean Corpuscular Volume 71.2 fL (80.0-94.0); Mean Platelet Volume 8.6 fL (7.4-10.4); Nucleated Red Blood Cells % 0 % (-); Platelet Count 429 10^3/uL (130-400); Red Blood Cell Count 6.12 10^6/uL (4.70-6.10); Red Cell Dist. Width 18.2 % (11.5-14.5); White Blood Cell Count 12.5 10^3/uL (4.8-10.8)
[2024-05-20 13:43] LABS: Lactic Acid 1.6 mmol/L (0.7-2.0)
[2024-05-20] MEDS: ZOFRAN 4 MG IV (14:51)
[2024-05-20 15:01] LABS: Blood Urea Nitrogen 81 mg/dl (9-20); Calcium 9.7 mg/dl (8.4-10.2); Carbon Dioxide 6 mmol/L (22-30); Chloride 95 mmol/L (98-107); Glucose 106 mg/dl (70-99); Sodium 127 mmol/L (135-145)
[2024-05-20 15:37] LABS: eGFR 20.55
--- NOTE | 2024-05-20 15:52 | HPS.HSE ---
Family Physician
-
Family Physician: El Perez
Chief Complaint
-
painful urination
poor oral intake
History of Present Illness
39-year-old male who identifies as female with past medical history of HIV, AIDS presented to us with poor oral intake for past few days. Patient sleeping most of the day. Patient is complaining of painful urination. Noticed some blood in the
urine. Patient complained of headache and dizziness patient denied any fever, chills, chest pain . Stated some short of breath . Denied abdominal pain, diarrhea, constipation .stated nausea .
Noted electrolyte imbalance. Patient receiving sodium bicarb. Admitting for further management
Medical History
Past Medical History
Past Medical History: Reports Other
Additional Past Medical History:
HIV
8
Anxiety
Past Surgical History: Reports Other
Additional Past Surgical History:
Right elbow surgery
Social History
Tobacco: Smoker
Alcohol: Occasional
Drug: Other (Methamphetamine)
Personal: Single
Living: With Roomate
Family History
Family History: Not pertinent
Allergies / Home Medications
Allergies reflects when Allergies were last updated in [facility].
Home Medications with original date entered in [facility]
Allergy/Medication List:
Allergies
Allergy/AdvReac Type Severity Reaction Status Date / Time
No Known Allergies Allergy Verified 05/20/24 12:25
Home Medications
acetaminophen 500 mg tablet (Tylenol Extra Strength) 1,000 mg PO Q6HPRN PRN mild pain 09/04/23
Review of Systems
-
Constitutional: Reports Fatigue and Chills
EENT: Reports No Symptoms
Respiratory: Reports No Symptoms
Cardiac: Reports Other (Short of breath)
Abdomen/GI: Reports Nausea
: Reports No Symptoms
Musculoskeletal: Reports No Symptoms
Skin: Reports No Symptoms
Neurological: Reports Dizzy and Headache
Endocrine: Reports No Symptoms
Hematologic/Lymphatic: Reports No Symptoms
Psych: Reports No Symptoms
Physical Exam
Vital Signs
Vital Signs
Temp Pulse Resp BP Pulse Ox
98.8 F 93 18 132/110 99
05/20/24 12:21 05/20/24 15:25 05/20/24 15:25 05/20/24 15:25 05/20/24 15:25
Physical Exam
General: Well Developed, Well Nourished and No Apparent Distress
HEENT: NormoCephalic, Moist mucous membranes and Atraumatic
Respiratory: Clear
Cardiac: S1/S2 and Regular Rhythm; No Murmur or Rub
GI: Soft, Non Tender, Non Distended and Normal Bowel Sounds; No Organomegaly
Rectal: Deferred by Provider
Musculoskeletal: No Clubbing, No Cyanosis and No Edema
Skin: No Rash
Neuro: AO x 3 and Nonfocal/grossly intact
Psych: Calm
Laboratory Results
-
05/20/24 12:54
Laboratory Results
Lactic Acid 1.6 mmol/L (0.7-2.0) 05/20/24 12:54
Total Bilirubin Cancelled 05/20/24 13:50
AST Cancelled 05/20/24 13:50
ALT Cancelled 05/20/24 13:50
Alkaline Phosphatase Cancelled 05/20/24 13:50
Data Reviewed
-
Diagnostic Radiology: Report Reviewed by me
Lab Data: Labs Reviewed by me
Impression/Plan
-
# Generalized weakness/poor oral intake/failure to thrive
#possible UTI
-WBC 12.5
-UA pending
-Chest x-ray no active disease
-giving iv ceftriaxone
-PT/OT
-dietary consulted
-CM consulted for placement
# Hyponatremia/acute kidney injury/anion gap metabolic acidosis likely dehydration
-Creatinine 2.7, sodium 23
-infusing with sodium bicarb
-Ctm
-Nephrology consulted
#HIV/AIDS, noncompliant with medication
#Anxiety #Depression #Gender Dysphoria
#Polysubstance Use -
-hxt of UDS (+) For Amphetamine/Methamphetamine/MJ
-drug screen
#DVT prophylaxis
-scd
#CODE status
-full code
[2024-05-20] MEDS: SODIUM BICARBONATE 1150 MEQ IV ×2 (15:54→22:30)
[2024-05-20 16:02] LABS: Blood Urea Nitrogen 74 mg/dl (9-20); Calcium 8.6 mg/dl (8.4-10.2); Carbon Dioxide 8 mmol/L (22-30); Chloride 103 mmol/L (98-107); Creatine Phosphokinase 70 U/L (55-170); Glucose 101 mg/dl (70-99); Potassium 5.5 mmol/L (3.5-5.1); Sodium 129 mmol/L (135-145); eGFR 20.55
[2024-05-20 16:08] LABS: Urine Albumin 2+ (Neg - Trace); Urine Bilirubin Negative (Negative); Urine Character Very Cloudy (Clear); Urine Color Yellow; Urine Glucose Negative (Negative); Urine Ketone Negative (Negative); Urine Leukocyte 2+ (Negative); Urine Nitrite Negative (Negative); Urine Occult Blood 4+ (Negative); Urine Urobilinogen Negative (Neg - 1+)
--- NOTE | 2024-05-20 16:16 | W.PN.UPDATE ---
Update Note
Progress Note Update
This note serves as an addendum to the H&P by desizing pad operator BORA Elsy STANLEY
HPI
38 transgender F with complex HX below seen at ER for evalaution of generally feeling unwell.
- reports similar as to when she was recently here with acute renal failure.
- Not ating or drinking over the last 5 days.
- Not making any urine presently.
PMH significant for recent hospitalization for severe ALVA / urogenital gonorrhea, POS HIV dxed since Aug 2023, non compliance with meds, HX ssupected of conversion disorder , HX anxiety and depression and RUE brachial plexopathy , BMI 18.5 HX
protein calorie malnutrition
@ER on arrival
Temp 98.8 RR18 HR 93 BP 132/110
Bladder scan: Not obstructed per ER
PMHX
RUE Brachial Plexopathy (injury during childbirth)
Anxiety / Depression
Transgender
HIV Positive (newly diagnosed)
PSHX
RUE Reconstructions x 5
Patient denies any other surgeries
SHX
Tobacco: Smoker (Current every day smoker. )
Alcohol: None
Drug: Marijuana (Daily)
Vital Signs
Temp Pulse Resp BP Pulse Ox
98.8 F 85 18 107/77 99
05/20/24 12:21 05/20/24 16:00 05/20/24 16:00 05/20/24 16:00 05/20/24 16:00
PE
Chronically ill-appearing
HEENT: dry lip
Neck: supple
CVS: RRR , no murmur
Lungs: Clear bilaterally
Abdomen: Flat mild diffuse tenderness
Neuro: alert and oriented. Globally weak
Skin: no rash
Psychiatric: Flat affect
Extremities: no edema.
Data upon admission
WBC 12.5 Hgb 14.7 Plt 429 suspect hemoconcentrated
Na 127
K 5.5
Cl 97
CO2 6
BUN 81
Cr 3.7
eGFR 20
Hi AG MA @26
Pending ABG
04/24/24 05/20/24
: 15:13
Leukocyte Esterase Rfl 2+ A
Urine RBC Pending
Urine WBC (Reflex) >100
Ur Amphetamines Screen Positive H
U Methamphetamines Scrn Positive H
U Marijuana (THC) Screen Positive H
04/27/24 MR Lumbar W/o & With Contrast:
- Large central disc protrusion at L4-5 abutting the traversing right L5 nerve root in the lateral recess and
- moderate spinal canal stenosis at this level.
- Moderate bilateral hydroureteronephrosis.
Last hospitalist admission: Date of Admission: 04/24/24 - Date of Discharge: 04/27/24
Principal Discharge diagnosis : Hyperkalemia, Hyponatremia, Acute Renal Failure, Metabolic Acidosis, Severe Sepsis, Low Back Pain
Chronic Discharge diagnosis : HIV/AIDS, Anxiety, Depression, Gender Dysphoria
ASSESSMENT & PLAN
Anuric ALVA
Dehydration
Hypovolemic Hyponatremia
Acid- base disfunction; Ak AG MA @26 : ABG pending
Polysubstance abuse - UDS POS Amphetamines, Meth, THC
HIV Positive : Non compliance with HIV Meds, Unknown recent CD 4 count
Protein Calorie Malnutrition with BMP 18
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
Generalized anxiety disorder
transgender male to female
Mentation:
- Agree with HCO3 gtt
- IV NS
- BMP q3H
- Renal consulted
- Administrative Underwriter consult
Dysuria suspect UTI
HIV was Dxed on 08/12/2023
CD4 David : 225 (09/05/23)
No prior HX OI
Known Resistance : None
HLA [id number] : Negative
- ART Biktarvy (2023 - Non compliance)
- UCx
- Empiric IV CFTZ
- ID consult
DVT Prophylaxis: SQH
Code Status: Full
ICU
Total Critical Care Time___75 __ minutes.
I was immediately available to the patient and staff. I personally examined, reviewed labs, diagnostic images/reports, interpretations, treatment plans, discussed patient care with other providers and family or caregivers (if patient is unable to
make decisions), entered orders as appropriate and documented the medical record.
--- NOTE | 2024-05-20 16:27 | W.CON.NEPH ---
Consultation
-
Date/Time Consultation Requested: 05/20/24 1500
Date/Time Consultation Performed: 05/20/24 1600
Requesting Provider: Tha Pinto
Performing Provider: Dr Cote
Reason for Consultation: ALVA, hyperkalemia, severe acidosis
Medical History
-
Chief Complaint: malaise
History of Present Illness:
39 yo transgender female (male to female) who had hospitalizations for severe ALVA, high K, POS HIV dxed in Aug 2023, and non compliant with meds, anxiety and depression. Brought to ER because of malaise, failure to thrive. Has not been
eating/drinking for 5 days. Difficulty with urination started days ago. He denies any fever, cough, cp, sob or abd pain or constipation or diarrhea or vomiting. Denies rash. Labs show ALVA with Cr 3.7, K 5.5, Na 129. severe metabolic acidosis with
bicarb of 8.
Past Medical History
RUE Brachial Plexopathy (injury during childbirth)
Anxiety / Depression
Transgender(male to female)
HIV Positive (newly diagnosed in Aug not compliant with meds)
Nephrolithiasis
Past Surgical History: Other (RUE Reconstructions x 5)
Social History
Tobacco: Smoker
Alcohol: Occasional (none on last 4m)
Drug: Marijuana
Family History
no h/o CKD mother side
Allergies / Home Medications
Allergy/AdvReac Type Severity Reaction Status Date / Time
No Known Allergies Allergy Verified 05/20/24 12:25
�Medication �Instructions �Recorded �Confirmed �Type
acetaminophen 500 mg tablet 1,000 mg PO Q6HPRN PRN mild pain 09/04/23 05/20/24 History
(Tylenol Extra Strength)
Physical Exam
Vital Signs
Vital Signs
Temp Pulse Resp BP Pulse Ox
98.8 F 85 18 107/77 99
05/20/24 12:21 05/20/24 16:00 05/20/24 16:00 05/20/24 16:00 05/20/24 16:00
Lab Results
WBC 12.5 10^3/uL (4.8-10.8) H 05/20/24 12:54
RBC 6.12 10^6/uL (4.70-6.10) H 05/20/24 12:54
Hgb 14.7 g/dL (13.0-18.0) 05/20/24 12:54
Hct 43.6 % (39.0-52.0) 05/20/24 12:54
Plt Count 429 10^3/uL (130-400) H 05/20/24 12:54
Sodium 129 mmol/L (135-145) L 05/20/24 15:13
Potassium 5.5 mmol/L (3.5-5.1) H 05/20/24 15:13
Chloride 103 mmol/L (98-107) 05/20/24 15:13
Carbon Dioxide 8 mmol/L (22-30) L* 05/20/24 15:13
BUN 74 mg/dl (9-20) H 05/20/24 15:13
Creatinine 3.7 mg/dL (0.7-1.3) H 05/20/24 15:13
eGFR 20.55 05/20/24 15:13
Glucose 101 mg/dl (70-99) H 05/20/24 15:13
Calcium 8.6 mg/dl (8.4-10.2) 05/20/24 15:13
Albumin Cancelled 05/20/24 13:50
Laboratory Tests
04/27/24 05/20/24
08:03 12:54
Sodium 133 L
Potassium 3.6
Chloride 94 L
Carbon Dioxide 29
BUN 32 H
Creatinine 1.0
Lactic Acid 1.6
Physical Exam
Patient is awake alert oriented and in no distress. Mood and affect were pleasant, insight and judgment were good. Pupils are equal round and reactive to light, extraocular movements are intact, sclera were anicteric. Hearing was normal, ears and
nose are intact. Oropharynx was clear. Neck was supple with trachea midline and no thyromegaly. Heart was regular rate and rhythm without rubs. Lower extremities without edema. Lungs were clear to auscultation bilaterally and with normal
excursion. Abdomen was soft, nontender, with normal active bowel sounds, and no hepatosplenomegaly. Skin was without rash and with normal turgor.
Data Reviewed
-
Radiology: Image Personally Visualized and interpreted (CXR 05/20/24 by my reading shows no acute disease)
Medical Tests (Nuc Med, Echo etc): Image Personally Visualized and interpreted (EKG 05/20/24 by my reading shows Sinus tachycardia with PVC, JAIR)
Labs: Labs Reviewed by me
Old Records: Reviewed
Assessment/Plan
-
IMP:
hyperkalemia
ALVA-baseline cr 0.9
Hyponatremia
Acidemia from met acidosis
Polysubstance abuse - Amphetamines, Meth, THC
HIV Positive : Non compliance with HIV Meds
Protein Calorie Malnutrition
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
Generalized anxiety disorder
transgender male to female
Plan:
PVR 62ml
IVF with bicarb
await UDS
follow BMP serially
d/w aunt at bedside
[2024-05-20 16:43] LABS: Urine White Cell >100 /HPF (0-5)
[2024-05-20 16:59] LABS: Amphetamines Positive (Negative); Barbiturates Negative (Negative); Benzodiazepines Negative (Negative); Buprenorphine Negative (Negative); Cocaine Negative (Negative); Marijuana Positive (Negative); Methadone Negative (Negative); Methamphetamines Positive (Negative); Opiates Negative (Negative); Phencyclidine Negative (Negative); Tricyclic Antidepressants Negative (Negative)
--- NOTE | 2024-05-20 17:02 | CON.INTV ---
Consultation
Consultation Request
Date/Time Consultation Requested: 05/20/2024
Date/Time Consultation Performed: 05/20/2024
Requesting Provider: Dr. Robin
Performing Provider: Dr. Neo Talamantes
Reason for Consultation: Metabolic acidosis/sepsis
Medical History
-
History of Present Illness:
39-year-old man who identifies as a female with past medical history of HIV, AIDS presented to the emergency room with poor oral intake for the past few days. Sleeping most of the days. Complaining of painful urination. Also noted some mild
hematuria.
Complaining of dizziness, headache but denies any fevers, or chills. Denies nausea vomiting or diarrhea.
It is noted that the patient is noncompliant with his HIV medications.
Recently has been admitted with similar clinical presentation.
Found to have profound metabolic acidosis, Abnormal urinalysis, acute kidney injury and other metabolic derangements.
UDS positive with methamphetamines on benzodiazepines.
Chest x-ray was clear.
Past Medical History
Past Medical History: Other (See assessment and plan)
Social History
Tobacco: Smoker
Alcohol: Occasional
Drug: Other (Methamphetamines)
Personal: Single
Living: With Roomate
Employment: Not Employed
Family History
Family History: Reviewed & Not Pertinent
Allergies / Home Medications
Allergies
Allergy/AdvReac Type Severity Reaction Status Date / Time
No Known Allergies Allergy Verified 05/20/24 12:25
Home Medications
�Medication �Instructions �Recorded �Confirmed �Last Taken �Type
acetaminophen 500 mg tablet 1,000 mg PO Q6HPRN PRN mild pain 09/04/23 05/20/24 5 Days Ago History
(Tylenol Extra Strength) ~08/30/23
Review of Systems
-
History Source: Patient
All other systems: Negative unless noted
Vitals / Labs / Diagnostic Testing
Vital Signs
Temp Pulse Resp BP Pulse Ox
98.8 F 90 18 101/80 99
05/20/24 12:21 05/20/24 16:28 05/20/24 16:28 05/20/24 16:28 05/20/24 16:28
Lab Data
05/20/24 12:54
05/20/24 15:13
Diagnostic Testing:
Physical Exam
-
HEENT: Normocephalic and Other (Cachectic, chronically ill-appearing)
Cardiovascular: S1/S2
Respiratory: Clear and Non-Labored Respirations
GI: Soft and Non Distended
Neurology: Awake, Alert and Other (Somnolent but easily aroused)
Skin: Dry and Other (Pale)
General: Comfortable
Assessment
-
38-year-old transgender female with a history of HIV, noncompliance, STDs, suspected conversion disorder, anxiety, depression, and calorie malnutrition who presented with decreased oral intake, found to be in acute kidney injury, profound metabolic
acidosis, looking chronically ill, abnormal UA suspected sepsis with dehydration. Transferred to the critical care unit 05/20/2020 for
Acute kidney injury likely prerenal-volume depletion due to poor PO intake.
Chest x-ray: Reviewed, no acute abnormalities
Anion gap acute metabolic acidosis-multifactorial
Hyperkalemia
Sepsis, UTI suspected based on abnormal UA
Leukocytosis
Hyponatremia
-
Polysubstance abuse-marijuana, amphetamines, meth
HIV/AIDS-noncompliant with meds-immunosuppressed
Conditions present prior to admission:
Admitted to the [facility] 04/2024 dehydration/metabolic acidosis/
Transgender-biological male transitioning to female.
HIV diagnosed August 2023-noncompliant with meds.
Suspected conversion disorder.
Anxiety.
Depression.
Right upper extremity brachial plexopathy status post 5 previous surgeries.
Protein calorie malnutrition.
Polysubstance abuse
History ALVA/hydronephrosis/renal calculi
Plan
Patient is critically ill, will need hemodynamic monitoring due to profound metabolic acidosis.
Admit patient to medical intensive care unit with profound metabolic acidosis and hyperkalemia
Supplement oxygen as needed
Aspiration precautions
Sepsis suspected.
Abnormal UA-UTI
Started on ceftriaxone
Obtain cultures
-
Infectious disease consultation.
Patient HIV positive noncompliant with medications
Monitor leukocytosis and fever curve
-
Acute kidney injury/severe metabolic acidosis
Lactate level is pending
Bicarbonate drip
Follow BMP later today
Encourage oral intake
-
Blood pressures were soft: status post IV fluid resuscitation
As above continue bicarbonate drip
Vasopressors may be needed
-
Acute kidney injury
Nephrology evaluation
Monitor renal function
Replace electrolytes
Life-threatening hyperkalemia correction
Follow hemoglobin-hemoglobin is 14. Suspect hemoconcentration.
Repeat CBC after rehydration
Monitor blood sugar
Insulin supplementation if needed
DVT prophylaxis
Early nutrition if possible
Early mobilization/bedside range of motion
Critical care statement: A total of 35 minutes of critical care time was provided for this patient today. This includes management of unstable vital signs, evaluation of the patient at bedside, reviewing the patient's pertinent medical records
including radiographs, pressor management, microbiology, laboratory evaluations, and discussion with primary team, consultants, pharmacy, nutrition, physical therapy, case management, charge nurse, critical care nursing, and respiratory therapy.
[2024-05-20 17:22] LABS: Fentanyl, Urine Negative (Negative)
--- NOTE | 2024-05-20 17:25 | RESPNOTE ---
unable to get ABG as order, multiple attempts were made to get ABG as order.
MD and Nurse were notified.
--- NOTE | 2024-05-20 18:27 | PTCARENOTE ---
Addendum entered by Teodora Pressley RN 05/20/24 18:34:
pt complaining of painful urination- unchanged from er report. bicarb gtt infusing as per order.
Original Note:
pt received from er- aox3, soft spoken, not wanting to answer all questions. nsr on monitor with pvcs, room air, lungs clear. positive bowel sounds. pt malnourished and cachectic. foams applied to bony areas. educated on importance of turning and
repositioning, plan of care, pt verbalized understanding. condom cath on. pt voided on er stretcher. no complaints at this time. all safety precautions in place, bed alarm on, call gaviria within reach.
[2024-05-20 18:43] LABS: Magnesium 2.5 mg/dl (1.6-2.3)
[2024-05-20] MEDS: HEPARIN 5000 UNITS SC (19:44)
[2024-05-20] MEDS: ROCEPHIN 1000 MG IV (19:45)
[2024-05-20] MEDS: STERILE WATER FOR INJECTION 10 ML IV (19:45)
--- NOTE | 2024-05-20 20:43 | PTCARENOTE ---
Pt received drowsy, arouses to name. Minimally conversant. Flat affect. Appetite poor. NSR with PVC and ventricular bigeminy noted. Assessment as charted.
[2024-05-20 21:38] LABS: INR 1.12; PT 14.2 Sec (11.4-14.6)
[2024-05-20] MEDS: TYLENOL 650 MG PO (21:39)
[2024-05-21] VITALS (19 sets, daily range): BP systolic 84–111; BP diastolic 51–78; BMI 18.5
[2024-05-21] MEDS: TYLENOL 650 MG PO ×5 (03:18→23:16)
[2024-05-21 04:21] LABS: Hematocrit 33.7 % (39.0-52.0); Hemoglobin 11.6 g/dL (13.0-18.0); Mean Corp Hgb Conc. 34.4 g/dL (33.0-37.0); Mean Corpuscular Hgb 24.1 pg (27.0-31.0); Mean Corpuscular Volume 70.1 fL (80.0-94.0); Mean Platelet Volume 9.2 fL (7.4-10.4); Platelet Count 332 10^3/uL (130-400); Red Blood Cell Count 4.81 10^6/uL (4.70-6.10); Red Cell Dist. Width 16.9 % (11.5-14.5); White Blood Cell Count 7.9 10^3/uL (4.8-10.8)
[2024-05-21 04:44] LABS: Blood Urea Nitrogen 63 mg/dl (9-20); Calcium 8.1 mg/dl (8.4-10.2); Carbon Dioxide 26 mmol/L (22-30); Chloride 92 mmol/L (98-107); Estimated Creatinine Clearance 36 ml/min; Glucose 145 mg/dl (70-99); Potassium 4.5 mmol/L (3.5-5.1); Sodium 129 mmol/L (135-145); eGFR 40.56
[2024-05-21] MEDS: SODIUM BICARBONATE IV (04:49)
--- NOTE | 2024-05-21 05:33 | PTCARENOTE ---
Pt slept at long intervals during night. Med x2 during night for back pain with tylenol. IV fluids capped.
--- NOTE | 2024-05-21 08:00 | PTCARENOTE ---
Assumed care of patient. Pt rec'd sleeping. Easily arousable...intermittently drowsy. A&Ox3. Tearful and anxious. C/O 04/19 lower back pain. Tylenol po provided...see MAR. S1 S2 reg w/ ST on monitor. +PP. No edema. Knee hi SCD's on. On
R/A...95%. Lungs clear but diminished in bases. Encouraged coughing and deep breathing. Abdomen flat...hypo BS. + flatus. Poor appetite. Reg diet. Takes po meds w/o issue. Skin pale in color. Pinkish rash noted in periarea...area cleansed
and calazime applied. New #25 CC applied...draining yellow urine. Pt states 'I'm incontinent at home and just urinate in my pants'. DAWN's...right arm w/ baseline contraction. 20P LFA capped. 18P LAC capped. VS documented. Call gaviria within
reach. Will continue to monitor.
[2024-05-21] MEDS: HEPARIN SC ×2 (08:04→20:16)
--- NOTE | 2024-05-21 08:41 | CON.ID ---
Consultation
-
Date/Time Consultation Requested: May 20, 2024
Date/Time Consultation Performed: May 21, 2024
Requesting Provider: Dr. Smiley Hatfield
Performing Provider: Dr. Vale Melendrez
Reason for Consultation: Noncompliance HIV, ALVA
Chief Complaint / Past History
Chief Complaint
Weakness, poor appetite, dysuria
History of Present Illness
Chad Mercer is a trans female with a significant past medical history of noncompliant HIV,follows with Dr. Cullen, substance abuse, who presented to ED on 05/20/24 due to weakness, dysuria, decreased po intake. He was last hospitalized last month
with ALVA, hyperkalemia; at the time Biktarvy on hold due to ALVA as well as pt's noncompliance. He was to follow up with Dr. Cullen, scheduled for 05/25, to discuss treatment plan. Since dc from last hospitalization, he remains unwell with poor
appetite. Positive dizziness. No headache. No fevers or chills. No diarrhea. Noted mild hematuria. has decreased UO. + pain with urination. No flank pain. In ED, patient noted to be in ALVA, hyperkalemia 5.5, profound metabolic acidosis, UA
positive leukocyte esterase, more than 100 white blood cells, urine culture pending. He is currently on ceftriaxone.
Past History
Additional Past Medical History:
HIV, dx'd 08/2023
Right upper extremity brachial plexopathy (from childbirth)
Anxiety/depression
Gonorrhea (08/2023)
Spinal stenosis
Additional Past Surgical History:
RUE Reconstructions x 5
Allergy History:
No Known Allergies Allergy (Verified 05/20/24 12:25)
Medications Reviewed: Yes
Current Antibiotics:
Ceftriaxone d2
Social History
Tobacco: Smoker
Alcohol: Occasional
Drug: Narcotics and Other (methamphetamine)
Personal: Partner
Living: With Roomate
Employment: Not Employed
Family History
Family History: Not Pertinent
Review of Systems
Review of Systems
General: Change in Appetite; Negative Fever or Chills
HEENT: Negative Stiff Neck, Sinus Problems, Headache or Pharyngitis
Cardiovascular: Negative Chest Pain
Respiratory: Negative Dyspnea or Cough
Gasteroenterology: Negative Nausea, Vomiting or Diarrhea
Genital / Urological: Dysuria; Negative Flank Pain
Endocrine: Weakness
All systems: All other systems were reviewed and were negative
Vital Signs
Temp Pulse Resp BP Pulse Ox
98.4 F 111 22 96/56 96
05/21/24 03:43 05/21/24 06:00 05/21/24 06:00 05/21/24 06:00 05/21/24 06:00
Physical Exam
Physical Exam
Constitutional: Acutely Ill
Head: Other (No frontal or maxillary sinus tenderness)
Eyes: No Conjunctival Hemorrhage and Sclera Anicteric
Oral: No Thrush
Cardiovascular: S1/S2 and Other (Tachycardic)
Pulmonary: Clear
Gastrointestinal: Soft, Non Tender, Non Distended and Normal Bowel Sounds
Genito-Urinary: Negative CVA Tenderness
Extremities: Negative Edema
Neurological: Other (Lethargic but arousable); Negative Meningeal Signs
Lab / Diagnostic Study Results
05/21/24 03:38
05/21/24 03:38
Abs Immat Gran (auto) 0.3 10^3/uL (0-0.05) H 05/20/24 12:54
Absolute Neuts (auto) 9.1 10^3/uL (1.4-6.5) H 05/20/24 12:54
Absolute Lymphs (auto) 1.7 10^3/uL (1.2-3.4) 05/20/24 12:54
Absolute Monos (auto) 1.1 10^3/uL (0.1-0.6) H 05/20/24 12:54
Absolute Basos (auto) 0.1 10^3/uL (0-0.2) 05/20/24 12:54
Immature Gran % 2.4 % (0-0.5) H 05/20/24 12:54
Neutrophils % 73.2 % (42.2-75.2) 05/20/24 12:54
Lymphocytes % 13.3 % (20.5-51.1) L 05/20/24 12:54
Monocytes % 8.9 % (1.7-9.3) 05/20/24 12:54
Eosinophils % 1.6 % (0-6) 05/20/24 12:54
Basophils % 0.6 % (0-2) 05/20/24 12:54
PT 14.2 Sec (11.4-14.6) 05/20/24 21:20
INR 1.12 05/20/24 21:20
Lactic Acid Cancelled 05/20/24 16:30
Microbiology Results
Micro:
05/20/24 15:13 Urine Culture - Pending
Urine
05/20/24 CXR: negative
Assessment / Plan
# HIV, noncompliant
- Last viral load 70 (02/2024 when taking HAART)
- Last CD4 167 (15%)
- Has been off of ART (Biktarvy) since April.
- Will not resume ART at this time until pt more stable and ready to be med compliant.
- When LAVA improves, will need to start PJP prophylaxis with Bactrim.
# Symptomatic UTI
- Ucx pending
- Continue ceftriaxone
# ALVA
- Nephrology following
# Severe protein-calorie malnutrition
--- NOTE | 2024-05-21 08:49 | W.PN.NEPH.PH ---
Today's Communication / Plan
-
IVF
Assessment/Plan
-
IMP:
hyperkalemia
ALVA-baseline cr 0.9
Hyponatremia
Acidemia from met acidosis
Polysubstance abuse - Amphetamines, Meth, THC
HIV Positive : Non compliance with HIV Meds
Protein Calorie Malnutrition
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
Generalized anxiety disorder
transgender male to female
Plan:
IVF
follow BMP serially
-
-
Date of Service: May 21, 2024
CC / HPI / ROS
-
Chief Complaint:
ALVA
History of Present Illness:
ALVA/Cr down to 2.1
BP stable
K better
Na still low 129
Review of Systems:
no CP/SOB
eating some
Labs
-
Labs:
WBC 7.9 10^3/uL (4.8-10.8) 05/21/24 03:38
RBC 4.81 10^6/uL (4.70-6.10) 05/21/24 03:38
Hgb 11.6 g/dL (13.0-18.0) L D 05/21/24 03:38
Hct 33.7 % (39.0-52.0) L 05/21/24 03:38
Plt Count 332 10^3/uL (130-400) D 05/21/24 03:38
Sodium 129 mmol/L (135-145) L 05/21/24 03:38
Potassium 4.5 mmol/L (3.5-5.1) 05/21/24 03:38
Chloride 92 mmol/L (98-107) L 05/21/24 03:38
Carbon Dioxide 26 mmol/L (22-30) 05/21/24 03:38
BUN 63 mg/dl (9-20) H 05/21/24 03:38
Creatinine 2.1 mg/dL (0.7-1.3) H 05/21/24 03:38
eGFR 40.56 05/21/24 03:38
Glucose 145 mg/dl (70-99) H 05/21/24 03:38
Calcium 8.1 mg/dl (8.4-10.2) L 05/21/24 03:38
Albumin Cancelled 05/20/24 13:50
Physical Exam
-
Vital Signs:
Vital Signs
Temp Pulse Resp BP Pulse Ox
98.4 F 119 15 105/53 97
05/21/24 03:43 05/21/24 08:00 05/21/24 08:00 05/21/24 08:00 05/21/24 07:00
Cardiovascular:: Regular rate and rhythm (tachy)
Respiratory:: Bilateral: Coarse
Lung Excursion:: Normal
Abdomen:: Nontender and Soft
Bowel Sounds:: Normal
Extremity Edema:: None: Bilateral:
--- NOTE | 2024-05-21 09:36 | W.PN.HOSP.TC ---
Today's Communication/Plan
-
stable for med surg
Assessment / Plan
Assessment / Plan
HPI: 39-year-old male who identifies as female with past medical history of HIV, AIDS presented to us with poor oral intake for past few days. Patient sleeping most of the day. Patient is complaining of painful urination. Noticed some blood in
the urine. Patient complained of headache and dizziness patient denied any fever, chills, chest pain . Stated some short of breath . Denied abdominal pain, diarrhea, constipation .stated nausea .
#Acute kidney injury
#Non-anion gap metabolic stenosis
Appreciate nephrology input, continue IV fluids
Creatinine 2.1 today, was 3.7 upon admission, baseline 1.0
Trend creatinine, avoid nephrotoxic drugs/NSAIDs
#Acute urinary tract infection
Continue Rocephin, follow-up on urine cultures
#HIV, noncompliant with antivirals
Last viral load 70 (02/2024 when taking HAART). Last CD4 167 (15%)
Has been off of ART (Biktarvy) since April.
ID rec not resuming ART at this time until pt more stable and ready to be med compliant.
Plan to start PJP prophylaxis with Bactrim with ALVA resolves
#Failure to thrive
#Severe protein calorie malnutrition
Start protein supplements
#Hyponatremia
Monitor
#Hyperkalemia
Resolved
#Polysubstance abuse
#Transgender, male to female
DVT prophylaxis�subcu heparin
Full code
Total time spent to see the patient on the floor, examine the patient, review data and lab results, discuss treatment plan with patient, nursing staff around 50 minutes.
Physical Exam
General: Appears disheveled, no acute distress
HEENT: Normocephalic, Atraumatic, EOMI, MMM
Respiratory: Clear to Auscultation bilaterally
Cardiac: Normal S1/S2, Regular Rate and Rhythm
GI: Soft, Nontender, Nondistended, Normal Bowel Sounds
Extremities: No Clubbing, Cyanosis, or Edema
Anticipated Discharge: > 48 hours
Subjective/Interval History
-
Date of Service: May 21, 2024
Patient complains of lower back pain. She continues to have dysuria. No fever, no vomiting.
Objective Data
-
Labs:
Laboratory Results
05/20/24 05/21/24
21:20 03:38
WBC 7.9
Hgb 11.6 L D
Hct 33.7 L
Plt Count 332 D
PT 14.2
INR 1.12
APTT 37.0 H
Sodium 129 L
Potassium 4.5
Chloride 92 L
Carbon Dioxide 26
BUN 63 H
Creatinine 2.1 H
Glucose 145 H
Calcium 8.1 L
Vital Signs:
Vital Signs
Temp Pulse Resp BP Pulse Ox
98.1 F 119 15 105/53 95
05/21/24 09:24 05/21/24 08:00 05/21/24 08:00 05/21/24 08:00 05/21/24 09:24
I&O
05/20/24 05/21/24 05/22/24
06:59 06:59 06:59
Intake Total 2300 / 2300 240 / 240
Output Total 1150 / 1150
Balance 1150 / 1150 240 / 240
[2024-05-21] MEDS: NSS 1000 IV ×2 (10:08→23:16)
--- NOTE | 2024-05-21 10:21 | W.PN.INTV ---
Today's Communication / Plan
Recommendations
IV hydration
Continue antibiotics
Follow cultures
Transfer to [facility]
Assessment
-
38-year-old transgender female with a history of HIV, noncompliance, STDs, suspected conversion disorder, anxiety, depression, and calorie malnutrition who presented with decreased oral intake, found to be in acute kidney injury, profound metabolic
acidosis, looking chronically ill, abnormal UA suspected sepsis with dehydration. Transferred to the critical care unit 05/20/2020 for
Acute kidney injury likely prerenal-volume depletion due to poor PO intake.
Chest x-ray: Reviewed, no acute abnormalities
Anion gap acute metabolic acidosis-multifactorial
Hyperkalemia
Sepsis, UTI suspected based on abnormal UA
Leukocytosis
Hyponatremia
-
Polysubstance abuse-marijuana, amphetamines, meth
HIV/AIDS-noncompliant with meds-immunosuppressed
Conditions present prior to admission:
Admitted to the [facility] 04/2024 dehydration/metabolic acidosis/
Transgender-biological male transitioning to female.
HIV diagnosed August 2023-noncompliant with meds.
Suspected conversion disorder.
Anxiety.
Depression.
Right upper extremity brachial plexopathy status post 5 previous surgeries.
Protein calorie malnutrition.
Polysubstance abuse
History ALVA/hydronephrosis/renal calculi
Plan
Clinically improved
Acidosis resolved post bicarbonate drip
Appears dehydrated-creatinine trending lower
Sepsis suspected.
Abnormal UA-UTI
Continue ceftriaxone
Obtain cultures-pending
Infectious disease following the patient
Patient HIV positive noncompliant with medications
Afebrile.
Leukocytosis resolved
-
Acute kidney injury/severe metabolic acidosis
Lactic acid not elevated
Bicarbonate discontinued
Normal saline continue
Repeat BMP tomorrow
Encourage oral intake
-
Blood pressures were soft: Did not require vasopressors.
Continue IV hydration
-
Acute kidney injury-improved
Nephrology follow
IV fluid
Hyperkalemia resolved
Hyponatremia-multifactorial
Follow hemoglobin-hemoglobin is 14. Suspect hemoconcentration.
Hemoglobin trending lower after hydration, no evidence for bleed
DVT prophylaxis-refused subcu hep
Early nutrition if possible
Early mobilization/bedside range of motion
Transferred to [facility].
Critical care team will sign off
Please call pulmonary if any respiratory issues arise
Subjective Dataa
Subjective Data
Date of Service:
Date of Service: May 21, 2024
Chief Complaint: Manager Power Follow Up (Acute kidney injury/metabolic acidosis)
Subjective:
Slightly better
Continues to feel tired
Was able to eat some breakfast without vomiting
Denies abdominal pain
Review of Systems
General: Fever (n)
Objective Data
Data Reviewed
Vital Signs / I&O / Oxygen:
Vital Signs
Temp Pulse Resp BP Pulse Ox
98.1 F 119 15 105/53 95
05/21/24 09:24 05/21/24 08:00 05/21/24 08:00 05/21/24 08:00 05/21/24 09:24
Intake and Output
05/20/24 05/21/24 05/22/24
06:59 06:59 06:59
Intake Total 2300 / 2300 550 / 550
Output Total 1150 / 1150
Balance 1150 / 1150 550 / 550
SaO2 95
Physical Exam
General: Poor Appetite and Other (Cachectic)
HEENT: Normocephalic
Cardiovascular: S1-S2
Respiratory: Clear and Non-Labored Respirations
GI: Soft and Non Distended
Neurology: Awake, Alert and No Motor Deficits
Labs/Micro/Reports
Lab Data
05/21/24 03:38
05/21/24 03:38
Laboratory Results
05/20/24 05/20/24
15:13 21:20
PT 14.2
INR 1.12
APTT 37.0 H
pH Cancelled
pCO2 Cancelled
pO2 Cancelled
HCO3 Cancelled
O2 Delivery Level Cancelled
--- NOTE | 2024-05-21 13:30 | PTCARENOTE ---
Pt extremely tearful and anxious at times. Emotional support provided. Will update MD.
--- NOTE | 2024-05-21 16:22 | CM ---
CM consult placed for 'other'. CM reviewed chart. Per hospitalist's note, CM consult was placed for placement. Before hospitalization, patient was living with a room mate. CM will continue to follow case.
[2024-05-21] MEDS: ROCEPHIN 1000 MG IV (20:16)
[2024-05-21] MEDS: STERILE WATER FOR INJECTION 10 ML IV (20:16)
--- NOTE | 2024-05-21 21:33 | PTCARENOTE ---
Received pt resting in bed AAOx3. Anxious and tearful at times. C/O back pain - pt agreeable to wait until tylenol is due. DAWN but contracted R UE. On RA, spo2 97%. Lungs CTA. Hypoactive bowel sounds. Poor appetite on regular diet. Ate a few bites
of dinner. Had some applesauce. Pt. incontinent urine- #25 condom cath placed but it came off two times so pt. agreeable to keep it off and wishes to use briefs. Daisy area/scrotum reddened, calazime applied. Repositioning as needed. NS @ 70ml/hr per
MAR.
Had 2 visitors- a friend and his mother who he stated 'I could've done without her visit.' Support given
[2024-05-22] VITALS (7 sets, daily range): BP systolic 95–108; BP diastolic 64–78; PULSE 101; BMI 18.5
[2024-05-22 04:22] LABS: Hematocrit 32.1 % (39.0-52.0); Hemoglobin 10.9 g/dL (13.0-18.0); Mean Corpuscular Hgb 25.3 pg (27.0-31.0); Mean Corpuscular Volume 74.5 fL (80.0-94.0); Platelet Count 273 10^3/uL (130-400); Red Blood Cell Count 4.31 10^6/uL (4.70-6.10); Red Cell Dist. Width 16.8 % (11.5-14.5); White Blood Cell Count 6.7 10^3/uL (4.8-10.8)
[2024-05-22 04:49] LABS: Blood Urea Nitrogen 45 mg/dl (9-20); Calcium 8.1 mg/dl (8.4-10.2); Carbon Dioxide 20 mmol/L (22-30); Chloride 95 mmol/L (98-107); Estimated Creatinine Clearance 46 ml/min; Glucose 97 mg/dl (70-99); Potassium 4.9 mmol/L (3.5-5.1); Sodium 130 mmol/L (135-145); eGFR 52.26
[2024-05-22] MEDS: TYLENOL 650 MG PO (05:44)
[2024-05-22] MEDS: HEPARIN SC ×2 (07:55→20:06)
--- NOTE | 2024-05-22 08:30 | PTCARENOTE ---
Assumed care of patient. Breakfast ordered by patient. Assessment completed. VS obtained. Safe environment confirmed. Discussed plan of care w/ nephrology. Will cap IVF's after current bag. Call gaviria within reach. Will continue to monitor.
--- NOTE | 2024-05-22 08:49 | W.PN.HOSP.TC ---
Today's Communication/Plan
-
see bold
Assessment / Plan
Assessment / Plan
HPI: 39-year-old male who identifies as female with past medical history of HIV, AIDS presented to us with poor oral intake for past few days. Patient sleeping most of the day. Patient is complaining of painful urination. Noticed some blood in
the urine. Patient complained of headache and dizziness patient denied any fever, chills, chest pain . Stated some short of breath . Denied abdominal pain, diarrhea, constipation .stated nausea .
#Acute kidney injury
#Non-anion gap metabolic stenosis
Appreciate nephrology input, continue IV fluids
Creatinine 1.7 today, was 2.1, was 3.7 upon admission, baseline 1.0
Trend creatinine, avoid nephrotoxic drugs/NSAIDs
#Acute urinary tract infection
Urine culture shows contamination
Appreciate ID input, continue Rocephin D3
#HIV, noncompliant with antivirals
Last viral load 70 (02/2024 when taking HAART). Last CD4 167 (15%)
Has been off of ART (Biktarvy) since April.
ID rec not resuming ART at this time until pt more stable and ready to be med compliant.
Plan to start PJP prophylaxis with Bactrim with ALVA resolves
#Failure to thrive
#Severe protein calorie malnutrition
Started protein supplements
#Anemia of chronic disease
Trend hemoglobin
#Hyponatremia
Monitor
#Hyperkalemia
Resolved
#Polysubstance abuse
#Transgender, male to female
DVT prophylaxis�subcu heparin
Full code
Total time spent to see the patient on the floor, examine the patient, review data and lab results, discuss treatment plan with patient, nursing staff around 40 minutes.
Physical Exam
General: Appears disheveled, no acute distress
HEENT: Normocephalic, Atraumatic, EOMI, MMM
Respiratory: Clear to Auscultation bilaterally
Cardiac: Normal S1/S2, Regular Rate and Rhythm
GI: Soft, Nontender, Nondistended, Normal Bowel Sounds
Extremities: No Clubbing, Cyanosis, or Edema
Anticipated Discharge: 24 - 48 hours
Subjective/Interval History
-
Date of Service: May 22, 2024
Patient reports improvement in her eating and drinking. She continues to have dysuria. No fever, no vomiting. No chest pain, no shortness of breath.
Objective Data
-
Labs:
Laboratory Results
05/22/24
04:00
WBC 6.7
Hgb 10.9 L
Hct 32.1 L
Plt Count 273
Sodium 130 L
Potassium 4.9
Chloride 95 L
Carbon Dioxide 20 L
BUN 45 H
Creatinine 1.7 H
Glucose 97
Calcium 8.1 L
Vital Signs:
Vital Signs
Temp Pulse Resp BP Pulse Ox
98.7 F 99 20 97/66 98
05/22/24 03:50 05/22/24 03:50 05/21/24 20:00 05/22/24 04:00 05/22/24 03:50
I&O
05/21/24 05/22/24 05/23/24
06:59 06:59 06:59
Intake Total 2300 / 2300 2190 / 2190
Output Total 1150 / 1150 675 / 675
Balance 1150 / 1150 1515 / 1515
--- NOTE | 2024-05-22 08:54 | W.PN.NEPH.PH ---
Today's Communication / Plan
-
cap IVF
Assessment/Plan
-
IMP:
hyperkalemia
ALVA-baseline cr 0.9
Hyponatremia
Acidemia from met acidosis
Polysubstance abuse - Amphetamines, Meth, THC
HIV Positive : Non compliance with HIV Meds
Protein Calorie Malnutrition
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
Generalized anxiety disorder
transgender male to female
Plan:
complete bag of IVF
follow BMP
encourage PO
-
-
Date of Service: May 22, 2024
CC / HPI / ROS
-
Chief Complaint:
ALVA
History of Present Illness:
ALVA/Cr down to 1.7
BP stable low
K better
Na still low 130
Review of Systems:
no CP/SOB
eating some more
Labs
-
Labs:
WBC 6.7 10^3/uL (4.8-10.8) 05/22/24 04:00
RBC 4.31 10^6/uL (4.70-6.10) L 05/22/24 04:00
Hgb 10.9 g/dL (13.0-18.0) L 05/22/24 04:00
Hct 32.1 % (39.0-52.0) L 05/22/24 04:00
Plt Count 273 10^3/uL (130-400) 05/22/24 04:00
Sodium 130 mmol/L (135-145) L 05/22/24 04:00
Potassium 4.9 mmol/L (3.5-5.1) 05/22/24 04:00
Chloride 95 mmol/L (98-107) L 05/22/24 04:00
Carbon Dioxide 20 mmol/L (22-30) L 05/22/24 04:00
BUN 45 mg/dl (9-20) H 05/22/24 04:00
Creatinine 1.7 mg/dL (0.7-1.3) H 05/22/24 04:00
eGFR 52.26 05/22/24 04:00
Glucose 97 mg/dl (70-99) 05/22/24 04:00
Calcium 8.1 mg/dl (8.4-10.2) L 05/22/24 04:00
Albumin Cancelled 05/20/24 13:50
Physical Exam
-
Vital Signs:
Vital Signs
Temp Pulse Resp BP Pulse Ox
98.0 F 99 20 96/64 98
05/22/24 08:45 05/22/24 03:50 05/21/24 20:00 05/22/24 08:49 05/22/24 03:50
Cardiovascular:: Regular rate and rhythm
Respiratory:: Bilateral: CTA
Lung Excursion:: Normal
Abdomen:: Nontender and Soft
Bowel Sounds:: Normal
Extremity Edema:: None: Bilateral:
--- NOTE | 2024-05-22 09:45 | W.PN.ID1 ---
Date of Service
Date of Service: May 22, 2024
Today's Communication
See below.
Assessment / Plan
# HIV, noncompliant
- Last viral load 70 (02/2024 when taking HAART)
- Last CD4 167 (11%)(04/2024)
- Has been off of ART (Biktarvy) since April.
- Will not resume ART at this time until pt more stable and ready to be compliant.
- When ALVA improves, will need to start PJP prophylaxis with Bactrim.
# Symptomatic UTI
- Ucx contaminated specimen
- Continue ceftriaxone (d3) for now
# ALVA - improving
- Nephrology following
# Severe protein-calorie malnutrition
Chief Complaint
-: Other (HIV)
Subjective / Review of Systems
Feels the same with malaise, poor appetite.
Vital Signs / Physical Exam
Vital Signs
Vital Signs
Temp Pulse Resp BP Pulse Ox
98.0 F 99 20 96/64 98
05/22/24 08:45 05/22/24 03:50 05/21/24 20:00 05/22/24 08:49 05/22/24 03:50
Physical Exam
Constitutional: Acutely Ill and Cachetic
Eyes: Sclera Anicteric
Cardiovascular: Regular Rate and S1/S2
Pulmonary: Clear
Gastrointestinal: Soft and Non Tender
Genito-Urinary: Negative CVA Tenderness
Extremities: Negative Edema
Neurological: Other (Drowsy, lethargic); Negative Meningeal Signs
Objective Data
Lab Data
Lab Results
05/22/24 04:00
05/22/24 04:00
PT 14.2 Sec (11.4-14.6) 05/20/24 21:20
INR 1.12 05/20/24 21:20
APTT 37.0 Sec (23.4-35.0) H 05/20/24 21:20
Estimated Creat Clear 46 ml/min 05/22/24 04:00
Lactic Acid Cancelled 05/20/24 16:30
Total Bilirubin Cancelled 05/20/24 13:50
AST Cancelled 05/20/24 13:50
ALT Cancelled 05/20/24 13:50
Alkaline Phosphatase Cancelled 05/20/24 13:50
Most recent labs reviewed.
Micro Results:
05/20/24 15:13 Urine Culture - Final
Urine
05/20/24 CXR: negative
[2024-05-22] MEDS: ROXICODONE 5 MG PO ×3 (11:27→22:29)
--- NOTE | 2024-05-22 15:15 | PTCARENOTE ---
Seen by PT. OOB and resting comfortably in chair. Call gaviria within reach.
[2024-05-22] MEDS: ROCEPHIN 1000 MG IV (20:07)
[2024-05-22] MEDS: STERILE WATER FOR INJECTION 10 ML IV (20:07)
[2024-05-22] MEDS: FLUSH (NSS) 2 FLUSH IV (20:08)
--- NOTE | 2024-05-22 22:18 | PTCARENOTE ---
Report received from previous shift RN [id number]. Pt in bed, AAO3. Lung sounds clear, denies SOB/cough, room air. MED/SURG orders noted. Heart sounds are regular, no edema noted, palpable peripheral pulses present. Pt refusing SCDs and SQ Heparine
despite education. Hypo BS, abdomen nontender. Tolerating regular diet, however has poor appetite. Pt is chronically incontinent urine. Declines condom cath placement; attends in place. Complete CHG bath provided, oral care performed. L AC and L
wrist/FA int's flushed and patent, capped. Protective foams on sacrum and upper spine, intact. Safe environment maintained, call gaviria within reach. Will monitor.
[2024-05-23] MEDS: ROXICODONE 5 MG PO ×3 (04:14→20:49)
[2024-05-23 04:20] VITALS: BP 104/71
[2024-05-23 04:47] LABS: Hematocrit 31.5 % (39.0-52.0); Hemoglobin 10.6 g/dL (13.0-18.0); Mean Corp Hgb Conc. 33.7 g/dL (33.0-37.0); Mean Corpuscular Hgb 25.1 pg (27.0-31.0); Mean Corpuscular Volume 74.6 fL (80.0-94.0); Mean Platelet Volume 8.9 fL (7.4-10.4); Platelet Count 251 10^3/uL (130-400); Red Blood Cell Count 4.22 10^6/uL (4.70-6.10); White Blood Cell Count 6.8 10^3/uL (4.8-10.8)
[2024-05-23 04:59] LABS: Blood Urea Nitrogen 29 mg/dl (9-20); Calcium 8.1 mg/dl (8.4-10.2); Carbon Dioxide 23 mmol/L (22-30); Chloride 96 mmol/L (98-107); Estimated Creatinine Clearance 65 ml/min; Glucose 101 mg/dl (70-99); Potassium 4.7 mmol/L (3.5-5.1); Sodium 130 mmol/L (135-145); eGFR > 60.00
[2024-05-23 06:00] VITALS: BMI 18.4
--- NOTE | 2024-05-23 06:34 | W.PN.HOSP.TC ---
Today's Communication/Plan
-
Pain control
cont abx as per ID
PT/OT
Monitor renal function
Assessment / Plan
Assessment / Plan
HPI: 39-year-old male who identifies as female with past medical history of HIV, AIDS presented to us with poor oral intake for past few days. Patient sleeping most of the day. Patient is complaining of painful urination. Noticed some blood in
the urine. Patient complained of headache and dizziness patient denied any fever, chills, chest pain . Stated some short of breath . Denied abdominal pain, diarrhea, constipation .stated nausea .
#Acute kidney injury
#Non-anion gap metabolic stenosis
Appreciate nephrology input, continue IV fluids
Creatinine 3.7 on admission, baseline 1.0, improving
Trend creatinine, avoid nephrotoxic drugs/NSAIDs
#Acute urinary tract infection
Urine culture shows contamination
Appreciate ID input, continue Rocephin D4
#HIV, noncompliant with antivirals
Last viral load 70 (02/2024 when taking HAART). Last CD4 167 (15%)
Has been off of ART (Biktarvy) since April.
ID rec not resuming ART at this time until pt more stable and ready to be med compliant.
Plan to start PJP prophylaxis with Bactrim with ALVA resolves
#Low Back Pain
#previous Lumbar MRI demonstrated bulging disk L4-5 w moderate spinal canal stenosis
cont pain control
K-pad
PT eval appreciated SNF rehab
#Failure to thrive
#Severe protein calorie malnutrition
protein supplements
#Anemia of chronic disease
monitor H&H
#Hyponatremia
Monitor
#Hyperkalemia
Resolved
#Polysubstance abuse
#Transgender, male to female
DVT prophylaxis�subcu heparin
Full code
Total time spent to see the patient on the floor, examine the patient, review data and lab results, discuss treatment plan with patient, nursing staff around 40 minutes.
Physical Exam
General: Appears disheveled, no acute distress
HEENT: Normocephalic, Atraumatic, EOMI, MMM
Respiratory: Clear to Auscultation bilaterally
Cardiac: Normal S1/S2, Regular Rate and Rhythm
GI: Soft, Nontender, Nondistended, Normal Bowel Sounds
Extremities: No Clubbing, Cyanosis, or Edema
Anticipated Discharge: 24 - 48 hours
Subjective/Interval History
-
Date of Service: May 23, 2024
No acute distress. Reports back pain.
Objective Data
-
Labs:
Laboratory Results
05/23/24
04:19
WBC 6.8
Hgb 10.6 L
Hct 31.5 L
Plt Count 251
Sodium 130 L
Potassium 4.7
Chloride 96 L
Carbon Dioxide 23
BUN 29 H
Creatinine 1.2
Glucose 101 H
Calcium 8.1 L
Vital Signs:
Vital Signs
Temp Pulse Resp BP Pulse Ox
99.3 F 99 18 104/71 97
05/23/24 04:13 05/23/24 04:13 05/23/24 04:13 05/23/24 04:20 05/23/24 04:13
I&O
05/21/24 05/22/24 05/23/24
06:59 06:59 06:59
Intake Total 2300 / 2300 2190 / 2260 1979 / 1979
Output Total 1150 / 1150 675 / 675 50 / 50
Balance 1150 / 1150 1515 / 1585 193 / 1929
[2024-05-23 08:26] VITALS: BP 107/69
[2024-05-23] MEDS: HEPARIN SC ×3 (08:32→20:41)
[2024-05-23] MEDS: TYLENOL 650 MG PO (08:33)
--- NOTE | 2024-05-23 08:57 | W.PN.NEPH.PH ---
Today's Communication / Plan
-
observe
Assessment/Plan
-
IMP:
hyperkalemia
ALVA-baseline cr 0.9
Hyponatremia
Acidemia from met acidosis
Polysubstance abuse - Amphetamines, Meth, THC
HIV Positive : Non compliance with HIV Meds
Protein Calorie Malnutrition
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
Generalized anxiety disorder
transgender male to female
Plan:
Creatinine down to 1.2, urine output not recorded
Hyponatremia unchanged at 130 ( currently off FR)
encourage PO
-
-
Date of Service: May 23, 2024
CC / HPI / ROS
-
Chief Complaint:
ALVA
History of Present Illness:
ALVA/Cr down to 1.2
BP stable low
K better
Na still low 130
Review of Systems:
no CP/SOB
eating some more
weights stable
Labs
-
Labs:
WBC 6.8 10^3/uL (4.8-10.8) 05/23/24 04:19
RBC 4.22 10^6/uL (4.70-6.10) L 05/23/24 04:19
Hgb 10.6 g/dL (13.0-18.0) L 05/23/24 04:19
Hct 31.5 % (39.0-52.0) L 05/23/24 04:19
Plt Count 251 10^3/uL (130-400) 05/23/24 04:19
Sodium 130 mmol/L (135-145) L 05/23/24 04:19
Potassium 4.7 mmol/L (3.5-5.1) 05/23/24 04:19
Chloride 96 mmol/L (98-107) L 05/23/24 04:19
Carbon Dioxide 23 mmol/L (22-30) 05/23/24 04:19
BUN 29 mg/dl (9-20) H 05/23/24 04:19
Creatinine 1.2 mg/dL (0.7-1.3) 05/23/24 04:19
eGFR > 60.00 05/23/24 04:19
Glucose 101 mg/dl (70-99) H 05/23/24 04:19
Calcium 8.1 mg/dl (8.4-10.2) L 05/23/24 04:19
Albumin Cancelled 05/20/24 13:50
Physical Exam
-
Vital Signs:
Vital Signs
Temp Pulse Resp BP Pulse Ox
98.5 F 108 18 107/69 97
05/23/24 08:05 05/23/24 08:26 05/23/24 08:26 05/23/24 08:26 05/23/24 08:26
Cardiovascular:: Regular rate and rhythm
Respiratory:: Bilateral: CTA
Lung Excursion:: Normal
Abdomen:: Nontender and Soft
Bowel Sounds:: Normal
Extremity Edema:: None: Bilateral:
[2024-05-23] MEDS: LIDOCAINE 4% PATCH 2 PATCH TOPICAL (09:11)
[2024-05-23] MEDS: TYLENOL 325 MG PO (09:11)
--- NOTE | 2024-05-23 10:58 | W.PN.ID1 ---
Date of Service
Date of Service: May 23, 2024
Today's Communication
Continue off antiretrovirals. Continue ceftriaxone for today.
Assessment / Plan
# HIV, noncompliant
- Last viral load 70 (02/2024; while on HAART)
- Last CD4 167 (11%)(04/2024)
- Has been off of ART (Biktarvy) since April; non-compliant with meds
- Will not resume ART at this time until pt more stable and ready to be compliant.
- When ALVA improves, will need to start PJP prophylaxis with Bactrim.
# Symptomatic UTI
- Ucx contaminated specimen
- Continue ceftriaxone (d#4) for now
# ALVA - improving
- Nephrology following
# Severe protein-calorie malnutrition
Patient previously discharged to an apartment style housing, but given this is the second admission for similar, suspect patient will need a more monitored housing situation.
Chief Complaint
-: Other (HIV)
Subjective / Review of Systems
Patient seen and examined. Reports did not sleep well overnight.
Review of Systems: No Fever
Vital Signs / Physical Exam
Vital Signs
Vital Signs
Temp Pulse Resp BP Pulse Ox
98.5 F 108 18 107/69 97
05/23/24 08:05 05/23/24 08:26 05/23/24 08:26 05/23/24 08:26 05/23/24 08:26
Physical Exam
Constitutional: No Acute Distress, Comfortable, Chronically Ill and Non-toxic
Eyes: No Conjunctival Hemorrhage and Sclera Anicteric
Cardiovascular: S1/S2; Negative S3/S4
Pulmonary: Clear and Non Labored
Gastrointestinal: Soft and Non Distended
Extremities: Edema (LE's); Negative Erythema
Skin: Negative Rash or Jaundice
Neurological: Awake
Psychological: Calm
Objective Data
Lab Data
Lab Results
05/23/24 04:19
05/23/24 04:19
PT 14.2 Sec (11.4-14.6) 05/20/24 21:20
INR 1.12 05/20/24 21:20
APTT 37.0 Sec (23.4-35.0) H 05/20/24 21:20
Estimated Creat Clear 65 ml/min 05/23/24 04:19
Lactic Acid Cancelled 05/20/24 16:30
Total Bilirubin Cancelled 05/20/24 13:50
AST Cancelled 05/20/24 13:50
ALT Cancelled 05/20/24 13:50
Alkaline Phosphatase Cancelled 05/20/24 13:50
Most recent labs reviewed.
Chest X-Ray: Image Reviewed and Report Reviewed
Micro Results:
05/20/24 15:13 Urine Culture - Final
Urine
Imaging:
05/20/24 CXR: No acute infiltrates.
[2024-05-23] MEDS: SENOKOT-S 1 TABLET PO (12:45)
--- NOTE | 2024-05-23 13:04 | CM ---
M following re: discharge planning.
Reviewed pt's chart, met with pt.
Patient is a 39 year old transgender MTF, admitted with primary dx of Generalized weakness/poor oral intake/failure to thrive
Pt is well known to this CM from previous admissions. Pt reports he lives with a room mate David in an 1SH, 1 step to enter and 12 steps to get to the basement. Pt reports she walks with a walker and a cane and she will need some help at home. Pt
reports she is known [facility]. Pt stated her room mate never home and he cannot help. pt stated he used to have friend Leonard and he is no longer around, lives in [facility]. Pt stated she has a mother and she is not supportive During entire interview,
pt has been anxiously asked to have services at home and pt was not able to clarify what particular services she needs. CM asked the pt to whether or not she was able to get any community based services at home already that were explained to her
during last admission. Pt stated: 'I did not get any services, I became frustrated from people calling me for assessments and i told them not to call me back'. CM explained again that it is a process to enroll for community based services and
patients needs to be in complaints with the process. Pt stated she lost her patience. Emotional support with reassurance offered and provided.
Pt reports she did decline SNF level of care during last admission but now pt stated she will prefer to go to a SNF for a short term rehab. pt did not express his preferences of SNF and pt stated he needs [place] areas.
PT and OT evaluations noted. Pt is aware and she she is requested to fax referrals to a requested areas. Referrals made in [facility].
PCP: Dr. El Leos
[facility]
D/C plan: preferred SNF.
CM will follow with discharge plan updates as hospitalization progresses
--- NOTE | 2024-05-23 15:22 | PTCARENOTE ---
pt being transferred to 2120. report given to Della prior to transfer. pt aware of transfer
[2024-05-23 15:42] VITALS: BP 104/55
[2024-05-23] MEDS: TYLENOL 1000 MG PO (16:00)
[2024-05-23] MEDS: STERILE WATER FOR INJECTION 10 ML IV (20:45)
[2024-05-23] MEDS: ROCEPHIN 1000 MG IV (20:45)
[2024-05-23] MEDS: TYLENOL PO (21:42)
[2024-05-23] MEDS: NICODERM TRANSDERMAL 14 MG TRANSDERM (22:47)
[2024-05-23 23:32] VITALS: BP 104/71
[2024-05-24 07:00] VITALS: BP 100/62
--- NOTE | 2024-05-24 07:38 | W.PN.HOSP.TC ---
Today's Communication/Plan
-
pain control
abx as per ID
IV iron supplementation
PT/OT
discharge planning SNF rehab
Assessment / Plan
Assessment / Plan
HPI: 39-year-old male who identifies as female with past medical history of HIV, AIDS presented to us with poor oral intake for past few days. Patient sleeping most of the day. Patient is complaining of painful urination. Noticed some blood in
the urine. Patient complained of headache and dizziness patient denied any fever, chills, chest pain . Stated some short of breath . Denied abdominal pain, diarrhea, constipation .stated nausea .
#Acute kidney injury
#Non-anion gap metabolic stenosis
Appreciate nephrology input, continue IV fluids
Creatinine 3.7 on admission, baseline 1.0, improving
Trend creatinine, avoid nephrotoxic drugs/NSAIDs
#Acute urinary tract infection
Urine culture shows contamination
Appreciate ID input, continue Rocephin D4
#HIV, noncompliant with antivirals
Last viral load 70 (02/2024 when taking HAART). Last CD4 167 (15%)
Has been off of ART (Biktarvy) since April.
ID rec not resuming ART at this time until pt more stable and ready to be med compliant.
Plan to start PJP prophylaxis with Bactrim with ALVA resolves
#Low Back Pain
#previous Lumbar MRI demonstrated bulging disk L4-5 w moderate spinal canal stenosis
cont pain control
K-pad
PT eval appreciated SNF rehab
#Severe Iron Deficiency
#Red Tongue
IV iron supplementation
ice chips for symptomatic relief
#Failure to thrive
#Severe protein calorie malnutrition
protein supplements
#Anemia of chronic disease
monitor H&H
#Hyponatremia
Monitor
#Hyperkalemia
Resolved
#Polysubstance abuse
#Transgender, male to female
DVT prophylaxis�subcu heparin
Full code
Total time spent to see the patient on the floor, examine the patient, review data and lab results, discuss treatment plan with patient, nursing staff around 40 minutes.
Physical Exam
General: Appears disheveled, no acute distress
HEENT: Normocephalic, Atraumatic, EOMI, MMM red tongue
Respiratory: Clear to Auscultation bilaterally
Cardiac: Normal S1/S2, Regular Rate and Rhythm
GI: Soft, Nontender, Nondistended, Normal Bowel Sounds
Extremities: No Clubbing, Cyanosis, or Edema
Anticipated Discharge: 24 - 48 hours
Subjective/Interval History
-
Date of Service: May 24, 2024
red tongue likely due to severe iron deficiency. Back Pain improved. Aunt Della present during evaluation
Objective Data
-
Labs:
Laboratory Results
05/24/24
06:57
WBC Pending
Hgb Pending
Hct Pending
Plt Count Pending
Sodium Pending
Potassium Pending
Chloride Pending
Carbon Dioxide Pending
BUN Pending
Creatinine Pending
Glucose Pending
Calcium Pending
Vital Signs:
Vital Signs
Temp Pulse Resp BP Pulse Ox
98.3 F 107 16 104/71 96
05/23/24 23:32 05/23/24 23:32 05/23/24 23:32 05/23/24 23:32 05/23/24 23:32
I&O
05/23/24 05/24/24 05/25/24
06:59 06:59 06:59
Intake Total 1979 / 1979 600 / 600
Output Total 50 / 50 300 / 300
Balance 1929 / 1929 300 / 300
[2024-05-24 07:40] LABS: Blood Urea Nitrogen 22 mg/dl (9-20); Calcium 8.5 mg/dl (8.4-10.2); Carbon Dioxide 23 mmol/L (22-30); Chloride 95 mmol/L (98-107); Estimated Creatinine Clearance 65 ml/min; Glucose 119 mg/dl (70-99); Magnesium 1.8 mg/dl (1.6-2.3); Phosphorus 3.3 mg/dl (2.5-4.5); Sodium 127 mmol/L (135-145); eGFR > 60.00
[2024-05-24 07:47] LABS: Hematocrit 34.3 % (39.0-52.0); Hemoglobin 11.4 g/dL (13.0-18.0); Mean Corp Hgb Conc. 33.2 g/dL (33.0-37.0); Mean Corpuscular Hgb 24.8 pg (27.0-31.0); Mean Corpuscular Volume 74.6 fL (80.0-94.0); Mean Platelet Volume 8.9 fL (7.4-10.4); Platelet Count 273 10^3/uL (130-400); Red Cell Dist. Width 16.9 % (11.5-14.5); White Blood Cell Count 7.3 10^3/uL (4.8-10.8)
[2024-05-24] MEDS: HEPARIN SC ×2 (09:01→20:58)
[2024-05-24] MEDS: LIDOCAINE 4% PATCH 2 PATCH TOPICAL (09:03)
[2024-05-24] MEDS: ROXICODONE 5 MG PO ×2 (09:03→21:12)
[2024-05-24] MEDS: TYLENOL 1000 MG PO ×3 (09:04→21:13)
[2024-05-24 09:55] LABS: Iron < 20 ug/dl (49-181)
[2024-05-24 09:56] LABS: Total Iron Binding Capacity 235 ug/dl (261-462)
--- NOTE | 2024-05-24 10:30 | W.PN.NEPH.PH ---
Today's Communication / Plan
-
Added fluid restriction 50 ounces
Assessment/Plan
-
IMP:
hyperkalemia
ALVA-baseline cr 0.9
Hyponatremia
Acidemia from met acidosis
Polysubstance abuse - Amphetamines, Meth, THC
HIV Positive : Non compliance with HIV Meds
Protein Calorie Malnutrition
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
Generalized anxiety disorder
transgender male to female
Plan:
Creatinine down to 1.2, urine output 300cc recorded but incontinent
Hyponatremia at 127 ( currently off FR)
add FR of 50oz daily
-
-
Date of Service: May 24, 2024
CC / HPI / ROS
-
Chief Complaint:
ALVA
History of Present Illness:
ALVA/Cr down to 1.2
BP stable low
K better
Na still low 127
Review of Systems:
no CP/SOB
eating some more
weights stable
Labs
-
Labs:
WBC 7.3 10^3/uL (4.8-10.8) 05/24/24 06:57
RBC 4.60 10^6/uL (4.70-6.10) L 05/24/24 06:57
Hgb 11.4 g/dL (13.0-18.0) L 05/24/24 06:57
Hct 34.3 % (39.0-52.0) L 05/24/24 06:57
Plt Count 273 10^3/uL (130-400) 05/24/24 06:57
Sodium 127 mmol/L (135-145) L 05/24/24 06:57
Potassium 5.0 mmol/L (3.5-5.1) 05/24/24 06:57
Chloride 95 mmol/L (98-107) L 05/24/24 06:57
Carbon Dioxide 23 mmol/L (22-30) 05/24/24 06:57
BUN 22 mg/dl (9-20) H 05/24/24 06:57
Creatinine 1.2 mg/dL (0.7-1.3) 05/24/24 06:57
eGFR > 60.00 05/24/24 06:57
Glucose 119 mg/dl (70-99) H 05/24/24 06:57
Calcium 8.5 mg/dl (8.4-10.2) 05/24/24 06:57
Phosphorus 3.3 mg/dl (2.5-4.5) 05/24/24 06:57
Albumin Cancelled 05/20/24 13:50
Physical Exam
-
Vital Signs:
Vital Signs
Temp Pulse Resp BP Pulse Ox
98.8 F 117 18 100/62 96
05/24/24 07:00 05/24/24 07:00 05/24/24 07:00 05/24/24 07:00 05/24/24 07:00
Cardiovascular:: Regular rate and rhythm
Respiratory:: Bilateral: CTA
Lung Excursion:: Normal
Abdomen:: Nontender and Soft
Bowel Sounds:: Normal
Extremity Edema:: None: Bilateral:
[2024-05-24 11:26] LABS: Folate 3.6 ng/ml (2.76-20); Vitamin B12 513 pg/ml (239-931)
[2024-05-24] MEDS: BENADRYL 25 MG PO (12:43)
[2024-05-24] MEDS: DESENEX/MITRAZOL/ZEASORB 1 APPLIC TOPICAL ×2 (12:43→21:03)
[2024-05-24] MEDS: FERRLECIT 110 MG IV (13:22)
--- NOTE | 2024-05-24 14:01 | W.PN.ID1 ---
Date of Service
Date of Service: May 24, 2024
Today's Communication
Begin PJP prophylaxis
Assessment / Plan
# HIV, noncompliant
- Last viral load 70 (02/2024; while on HAART)
- Last CD4 : 167 (11%)(04/2024)
- Has been off of ART (Biktarvy) since April; non-compliant with meds beforehand
- Will not resume ART at this time until pt more stable and ready / able to be compliant.
- ALVA improved, will start PJP prophylaxis with Bactrim DS qMWF
# Symptomatic UTI
- Ucx contaminated specimen
- Continue ceftriaxone (d#4) for now
# ALVA - improving
- Nephrology following
# Severe protein-calorie malnutrition
[facility] I suspect needs for care will be ongoing.
Chief Complaint
-: Other (HIV)
Subjective / Review of Systems
Review of Systems: No Fever and No Chills
Vital Signs / Physical Exam
Vital Signs
Vital Signs
Temp Pulse Resp BP Pulse Ox
98.8 F 117 18 100/62 96
05/24/24 07:00 05/24/24 07:00 05/24/24 07:00 05/24/24 07:00 05/24/24 07:00
Physical Exam
Constitutional: No Acute Distress, Comfortable, Chronically Ill and Non-toxic
Eyes: Sclera Anicteric
Cardiovascular: S1/S2; Negative S3/S4
Pulmonary: Clear; Negative Wheezes or Rales
Gastrointestinal: Non Distended and Normal Bowel Sounds
Neurological: Awake and Alert
Psychological: Calm
Objective Data
Lab Data
Lab Results
05/24/24 06:57
05/24/24 06:57
PT 14.2 Sec (11.4-14.6) 05/20/24 21:20
INR 1.12 05/20/24 21:20
APTT 37.0 Sec (23.4-35.0) H 05/20/24 21:20
Estimated Creat Clear 65 ml/min 05/24/24 06:57
Lactic Acid Cancelled 05/20/24 16:30
Total Bilirubin Cancelled 05/20/24 13:50
AST Cancelled 05/20/24 13:50
ALT Cancelled 05/20/24 13:50
Alkaline Phosphatase Cancelled 05/20/24 13:50
Most recent labs reviewed.
Micro Results:
05/20/24 15:13 Urine Culture - Final
Urine
Imaging:
05/20/24 CXR: No acute infiltrates.
Care Review
Plan reviewed with: Physician (Hospitalist)
--- NOTE | 2024-05-24 14:31 | CM ---
Patient seen at bedside.
Discussed more options for SNF
Referrals for [facility] & [facility] entered in [facility].
Left message for Dyana at [facility] & Jorge at [facility]
PLAN: SNF, pending acceptance/bed availability - CM will need to obtain insurance auth prior.
[2024-05-24 15:00] VITALS: BP 112/78
[2024-05-24] MEDS: ROCEPHIN 1000 MG IV (20:59)
[2024-05-24] MEDS: STERILE WATER FOR INJECTION 10 ML IV (20:59)
[2024-05-24] MEDS: NICODERM TRANSDERMAL 14 MG TRANSDERM (22:56)
[2024-05-24 23:27] VITALS: BP 99/65
--- NOTE | 2024-05-25 04:05 | DOWNTIME ---
There was a [employer] Nurse Specialist Downtime on 05/25/2024 from 0100 to 05/25/2024 at 0355. Downtime documentation of patient's care, including medication administrations, has been reconciled in the electronic record per guidelines. Refer to the
patient's paper chart under the miscellaneous tab to see printed paper medication records and downtime forms.
[2024-05-25 05:59] LABS: Hematocrit 34.6 % (39.0-52.0); Hemoglobin 11.5 g/dL (13.0-18.0); Mean Corp Hgb Conc. 33.2 g/dL (33.0-37.0); Mean Corpuscular Hgb 24.5 pg (27.0-31.0); Mean Corpuscular Volume 73.6 fL (80.0-94.0); Mean Platelet Volume 8.6 fL (7.4-10.4); Platelet Count 283 10^3/uL (130-400); Red Cell Dist. Width 17.2 % (11.5-14.5)
[2024-05-25 06:21] LABS: Blood Urea Nitrogen 22 mg/dl (9-20); Calcium 8.7 mg/dl (8.4-10.2); Carbon Dioxide 23 mmol/L (22-30); Chloride 96 mmol/L (98-107); Estimated Creatinine Clearance 65 ml/min; Glucose 103 mg/dl (70-99); Phosphorus 4.3 mg/dl (2.5-4.5); Potassium 4.6 mmol/L (3.5-5.1); Sodium 132 mmol/L (135-145); eGFR > 60.00
[2024-05-25 07:00] VITALS: BP 126/80
--- NOTE | 2024-05-25 07:24 | W.PN.HOSP.TC ---
Today's Communication/Plan
-
abx as per ID
IV iron infusion
magic mouthwash symptomatic relief red tongue
discharge planning SNF rehab
Assessment / Plan
Assessment / Plan
HPI: 39-year-old male who identifies as female with past medical history of HIV, AIDS presented to us with poor oral intake for past few days. Patient sleeping most of the day. Patient is complaining of painful urination. Noticed some blood in
the urine. Patient complained of headache and dizziness patient denied any fever, chills, chest pain . Stated some short of breath . Denied abdominal pain, diarrhea, constipation .stated nausea .
#Acute kidney injury
#Non-anion gap metabolic stenosis
Appreciate nephrology input, continue IV fluids
Creatinine 3.7 on admission, baseline 1.0, improving
Trend creatinine, avoid nephrotoxic drugs/NSAIDs
#Acute urinary tract infection
Urine culture shows contamination
Appreciate ID input, continue Rocephin D4
#HIV, noncompliant with antivirals
Last viral load 70 (02/2024 when taking HAART). Last CD4 167 (15%)
Has been off of ART (Biktarvy) since April.
ID rec not resuming ART at this time until pt more stable and ready to be med compliant.
PJP prophylaxis Bactrim started
#Low Back Pain
#previous Lumbar MRI demonstrated bulging disk L4-5 w moderate spinal canal stenosis
cont pain control
K-pad
PT eval appreciated SNF rehab
#Severe Iron Deficiency
#Red Tongue
IV iron supplementation
ice chips and magic mouthwash for symptomatic relief
#Failure to thrive
#Severe protein calorie malnutrition
protein supplements
#Anemia of chronic disease
monitor H&H
#Hyponatremia
Monitor
#Hyperkalemia
Resolved
#Polysubstance abuse
#Transgender, male to female
DVT prophylaxis�subcu heparin
Full code
Total time spent to see the patient on the floor, examine the patient, review data and lab results, discuss treatment plan with patient, nursing staff around 40 minutes.
Physical Exam
General: Appears disheveled, no acute distress
HEENT: Normocephalic, Atraumatic, EOMI, MMM red tongue
Respiratory: Clear to Auscultation bilaterally
Cardiac: Normal S1/S2, Regular Rate and Rhythm
GI: Soft, Nontender, Nondistended, Normal Bowel Sounds
Extremities: No Clubbing, Cyanosis, or Edema
Anticipated Discharge: 24 - 48 hours
Subjective/Interval History
-
Date of Service: May 25, 2024
No acute distress. Sitting up comfortably in chair. continues to report red tongue discomfort.
Objective Data
-
Labs:
Laboratory Results
05/25/24
05:24
WBC 7.0
Hgb 11.5 L
Hct 34.6 L
Plt Count 283
Sodium 132 L
Potassium 4.6
Chloride 96 L
Carbon Dioxide 23
BUN 22 H
Creatinine 1.2
Glucose 103 H
Calcium 8.7
Vital Signs:
Vital Signs
Temp Pulse Resp BP Pulse Ox
97.9 F 55 14 99/65 97
05/24/24 23:27 05/24/24 23:27 05/24/24 23:27 05/24/24 23:27 05/24/24 23:27
I&O
05/24/24 05/25/24 05/26/24
06:59 06:59 06:59
Intake Total 600 / 600 2380 / 2380
Output Total 300 / 300
Balance 300 / 300 2380 / 2380
[2024-05-25] MEDS: HEPARIN SC ×2 (08:04→20:11)
[2024-05-25] MEDS: DESENEX/MITRAZOL/ZEASORB 1 APPLIC TOPICAL ×2 (08:12→20:10)
[2024-05-25] MEDS: ROXICODONE 5 MG PO ×2 (08:12→20:43)
[2024-05-25] MEDS: TYLENOL 1000 MG PO ×3 (08:12→23:01)
[2024-05-25] MEDS: BACTRIM DS 800 MG/160 MG 1 TABLET PO (08:13)
[2024-05-25] MEDS: LIDOCAINE 4% PATCH 2 PATCH TOPICAL (08:13)
--- NOTE | 2024-05-25 10:45 | W.PN.NEPH.PH ---
Today's Communication / Plan
-
s/o
Assessment/Plan
-
IMP:
hyperkalemia
ALVA-baseline cr 0.9
Hyponatremia
Acidemia from met acidosis
Polysubstance abuse - Amphetamines, Meth, THC
HIV Positive : Non compliance with HIV Meds
Protein Calorie Malnutrition
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
Generalized anxiety disorder
transgender male to female
Plan:
FR 50oz
encourage PO
will s/o
-
-
Date of Service: May 25, 2024
CC / HPI / ROS
-
Chief Complaint:
ALVA
History of Present Illness:
ALVA/Cr down to 1.2
BP stable low
K better
Na up to 132
Review of Systems:
no CP/SOB
eating some more
weights stable
Labs
-
Labs:
WBC 7.0 10^3/uL (4.8-10.8) 05/25/24 05:24
RBC 4.70 10^6/uL (4.70-6.10) 05/25/24 05:24
Hgb 11.5 g/dL (13.0-18.0) L 05/25/24 05:24
Hct 34.6 % (39.0-52.0) L 05/25/24 05:24
Plt Count 283 10^3/uL (130-400) 05/25/24 05:24
Sodium 132 mmol/L (135-145) L 05/25/24 05:24
Potassium 4.6 mmol/L (3.5-5.1) 05/25/24 05:24
Chloride 96 mmol/L (98-107) L 05/25/24 05:24
Carbon Dioxide 23 mmol/L (22-30) 05/25/24 05:24
BUN 22 mg/dl (9-20) H 05/25/24 05:24
Creatinine 1.2 mg/dL (0.7-1.3) 05/25/24 05:24
eGFR > 60.00 05/25/24 05:24
Glucose 103 mg/dl (70-99) H 05/25/24 05:24
Calcium 8.7 mg/dl (8.4-10.2) 05/25/24 05:24
Phosphorus 4.3 mg/dl (2.5-4.5) 05/25/24 05:24
Albumin Cancelled 05/20/24 13:50
Physical Exam
-
Vital Signs:
Vital Signs
Temp Pulse Resp BP Pulse Ox
98.4 F 89 18 126/80 96
05/25/24 07:00 05/25/24 07:00 05/25/24 07:00 05/25/24 07:00 05/25/24 09:30
Cardiovascular:: Regular rate and rhythm
Respiratory:: Bilateral: CTA
Lung Excursion:: Normal
Abdomen:: Nontender and Soft
Bowel Sounds:: Normal
Extremity Edema:: None: Bilateral:
--- NOTE | 2024-05-25 11:49 | W.PN.ID1 ---
Date of Service
Date of Service: May 25, 2024
Today's Communication
Continue Bactrim for opportunistic infection prophylaxis. Will follow in the office.
Assessment / Plan
# HIV, noncompliant
- Last viral load 70 (02/2024; while on HAART)
- Last CD4 : 167 (11%)(04/2024)
- Has been off of ART (Biktarvy) since April; non-compliant with meds beforehand
- Will not resume ART at this time until pt more stable and ready / able to be compliant.
- ALVA improved, will start PJP prophylaxis with Bactrim DS qMWF
# Symptomatic UTI
- Ucx contaminated specimen
- Continue ceftriaxone (d#4) for now
# ALVA - improving
- Nephrology following
# Severe protein-calorie malnutrition
Patient for discharge to half-way facility. I suspect needs for care will be ongoing.
Chief Complaint
-: Other (HIV)
Subjective / Review of Systems
Review of Systems: No Fever
Vital Signs / Physical Exam
Vital Signs
Vital Signs
Temp Pulse Resp BP Pulse Ox
98.4 F 89 18 126/80 96
05/25/24 07:00 05/25/24 07:00 05/25/24 07:00 05/25/24 07:00 05/25/24 09:30
Physical Exam
Constitutional: No Acute Distress, Comfortable, Chronically Ill and Non-toxic
Eyes: Sclera Anicteric
Cardiovascular: S1/S2; Negative S3/S4
Pulmonary: Clear; Negative Wheezes or Rales
Gastrointestinal: Non Distended and Normal Bowel Sounds
Skin: Negative Rash
Neurological: Awake and Alert
Psychological: Calm
Objective Data
Lab Data
Lab Results
05/25/24 05:24
05/25/24 05:24
PT 14.2 Sec (11.4-14.6) 05/20/24 21:20
INR 1.12 05/20/24 21:20
APTT 37.0 Sec (23.4-35.0) H 05/20/24 21:20
Estimated Creat Clear 65 ml/min 05/25/24 05:24
Lactic Acid Cancelled 05/20/24 16:30
Total Bilirubin Cancelled 05/20/24 13:50
AST Cancelled 05/20/24 13:50
ALT Cancelled 05/20/24 13:50
Alkaline Phosphatase Cancelled 05/20/24 13:50
Most recent labs reviewed.
Micro Results:
05/20/24 15:13 Urine Culture - Final
Urine
Imaging:
05/20/24 CXR: No acute infiltrates.
[2024-05-25 12:06] VITALS: BP 120/71; PULSE 52; O2SAT 98
[2024-05-25 14:00] VITALS: BP 120/71; PULSE 80
[2024-05-25 15:00] VITALS: BP 109/68
[2024-05-25] MEDS: FERRLECIT 110 MG IV (15:15)
[2024-05-25] MEDS: FIRST-MOUTHWASH BLM SUSPENSION 5 ML PO ×2 (15:16→20:14)
[2024-05-25] MEDS: FIRST-MOUTHWASH BLM SUSPENSION PO (18:24)
[2024-05-25] MEDS: ROCEPHIN 1000 MG IV (20:12)
[2024-05-25] MEDS: STERILE WATER FOR INJECTION 10 ML IV (20:14)
[2024-05-25] MEDS: NICODERM TRANSDERMAL 14 MG TRANSDERM (23:01)
[2024-05-25 23:09] VITALS: BP 115/59
[2024-05-26 07:00] VITALS: BP 110/57
[2024-05-26 07:26] LABS: Hematocrit 35.8 % (39.0-52.0); Hemoglobin 11.9 g/dL (13.0-18.0); Mean Corp Hgb Conc. 33.2 g/dL (33.0-37.0); Mean Corpuscular Hgb 25.2 pg (27.0-31.0); Mean Corpuscular Volume 75.7 fL (80.0-94.0); Platelet Count 295 10^3/uL (130-400); Red Blood Cell Count 4.73 10^6/uL (4.70-6.10); Red Cell Dist. Width 17.2 % (11.5-14.5); White Blood Cell Count 8.1 10^3/uL (4.8-10.8)
--- NOTE | 2024-05-26 07:29 | W.PN.HOSP.TC ---
Today's Communication/Plan
-
IV abx completed
Bactrim pjp prophylaxis as per ID
fluid restriction
monitor renal function
PT/OT
discharge planning SNF rehab
Assessment / Plan
Assessment / Plan
HPI: 39-year-old male who identifies as female with past medical history of HIV, AIDS presented to us with poor oral intake for past few days. Patient sleeping most of the day. Patient is complaining of painful urination. Noticed some blood in
the urine. Patient complained of headache and dizziness patient denied any fever, chills, chest pain . Stated some short of breath . Denied abdominal pain, diarrhea, constipation .stated nausea .
#Acute kidney injury
#Non-anion gap metabolic stenosis
Appreciate nephrology input, continue IV fluids
Creatinine 3.7 on admission, baseline 1.0, since improved
Trend creatinine, avoid nephrotoxic drugs/NSAIDs
Mild Cr elevation noted following Bactrim pjp ppx started as below
likely benign elevation, Bactrim known to cause elevated Cr without kidney injury
cont monitoring renal function
#Acute urinary tract infection
Urine culture shows contamination
Appreciate ID input, continue Rocephin completed 7 days
monitor off abx
#HIV, noncompliant with antivirals
Last viral load 70 (02/2024 when taking HAART). Last CD4 167 (15%)
Has been off of ART (Biktarvy) since April.
ID rec not resuming ART at this time until pt more stable and ready to be med compliant.
PJP prophylaxis Bactrim started
#Low Back Pain
#previous Lumbar MRI demonstrated bulging disk L4-5 w moderate spinal canal stenosis
cont pain control
K-pad
PT eval appreciated SNF rehab
#Severe Iron Deficiency
#Red Tongue
IV iron supplementation
ice chips and magic mouthwash for symptomatic relief
Nystatin swish started for possible candidiasis exacerbating but low suspicion
#Failure to thrive
#Severe protein calorie malnutrition
protein supplements
#Anemia of chronic disease
monitor H&H
#Hyponatremia
Monitor
#Hyperkalemia
Resolved
#Polysubstance abuse
#Transgender, male to female
DVT prophylaxis�subcu heparin
Full code
Total time spent to see the patient on the floor, examine the patient, review data and lab results, discuss treatment plan with patient, nursing staff around 40 minutes.
Physical Exam
General: Appears disheveled, no acute distress
HEENT: Normocephalic, Atraumatic, EOMI, MMM red tongue
Respiratory: Clear to Auscultation bilaterally
Cardiac: Normal S1/S2, Regular Rate and Rhythm
GI: Soft, Nontender, Nondistended, Normal Bowel Sounds
Extremities: No Clubbing, Cyanosis, or Edema
Anticipated Discharge: Within 24 hours
Subjective/Interval History
-
Date of Service: May 26, 2024
sore tongue persists. otherwise no acute distress. resting comfortably in bed
Objective Data
-
Labs:
Laboratory Results
05/26/24
05:12
WBC 8.1
Hgb 11.9 L
Hct 35.8 L
Plt Count 295
Sodium Pending
Potassium Pending
Chloride Pending
Carbon Dioxide Pending
BUN Pending
Creatinine Pending
Glucose Pending
Calcium Pending
Vital Signs:
Vital Signs
Temp Pulse Resp BP Pulse Ox
99.5 F 56 18 115/59 99
05/25/24 23:09 05/25/24 23:09 05/25/24 23:09 05/25/24 23:09 05/25/24 23:09
I&O
05/25/24 05/26/24 05/27/24
06:59 06:59 06:59
Intake Total 2380 / 2380 1080 / 1080
Balance 2380 / 2380 1080 / 1080
[2024-05-26 08:02] LABS: Blood Urea Nitrogen 24 mg/dl (9-20); Calcium 8.8 mg/dl (8.4-10.2); Carbon Dioxide 21 mmol/L (22-30); Chloride 94 mmol/L (98-107); Estimated Creatinine Clearance 52 ml/min; Glucose 136 mg/dl (70-99); Phosphorus 3.8 mg/dl (2.5-4.5); Potassium 4.5 mmol/L (3.5-5.1); Sodium 129 mmol/L (135-145); eGFR > 60.00
[2024-05-26] MEDS: FIRST-MOUTHWASH BLM SUSPENSION 5 ML PO ×2 (09:26→17:17)
[2024-05-26] MEDS: TYLENOL 1000 MG PO ×3 (09:26→22:10)
[2024-05-26] MEDS: HEPARIN SC ×2 (09:27→19:51)
[2024-05-26] MEDS: LIDOCAINE 4% PATCH 2 PATCH TOPICAL (09:27)
[2024-05-26] MEDS: DESENEX/MITRAZOL/ZEASORB 1 APPLIC TOPICAL ×2 (09:29→19:53)
[2024-05-26] MEDS: ROXICODONE 5 MG PO ×2 (11:06→20:25)
--- NOTE | 2024-05-26 13:12 | CM ---
Met with patient at bedside.
Discussed [facility] accepted in [facility]. Patient agreeable to SNF
Spoke with [facility] liaison
Cornelio Roper NPI - [id number]
Dr Baldev Alejo NPI - [id number]
CM will need to get insurance authorization
PLAN: [facility]
Report #: [phone]
Fax #: [phone]
[2024-05-26] MEDS: FERRLECIT 110 MG IV (14:30)
[2024-05-26 15:00] VITALS: BP 116/68
--- NOTE | 2024-05-26 16:00 | W.PN.ID1 ---
Date of Service
Date of Service: May 26, 2024
Today's Communication
D/C further ceftriaxone. Continue with prophylactic Bactrim.
Assessment / Plan
# HIV, noncompliant
- Last viral load 70 (02/2024; while on HAART)
- Last CD4 : 167 (11%)(04/2024)
- Has been off of ART (Biktarvy) since April; non-compliant with meds beforehand
- Will not resume ART at this time until pt more stable and ready / able to be compliant given significant risk of viral resistance developing.
- ALVA improved, continue PJP prophylaxis with Bactrim DS qMWF
# Symptomatic UTI
- Ucx contaminated specimen
- GC / Chlam negtive
- D/C further Ceftriaxone (d#7).
- May need Urology eval if symptoms persist.
# ALVA - improving
- Nephrology following
# Severe protein-calorie malnutrition
Patient for discharge to halfway facility. I suspect needs for care will be ongoing.
����������������������������������������������������������
Chief Complaint
-: Other (HIV)
Subjective / Review of Systems
Patient seen and examined. Reports some dysuria that is ongoing, along with some intermittent urinary urgency.
Review of Systems: No Fever and No Chills
Vital Signs / Physical Exam
Vital Signs
Vital Signs
Temp Pulse Resp BP Pulse Ox
97.8 F 56 16 116/68 97
05/26/24 15:00 05/26/24 15:00 05/26/24 15:00 05/26/24 15:00 05/26/24 15:00
Physical Exam
Constitutional: Chronically Ill, Non-toxic and Cachetic (Mild)
Eyes: Sclera Anicteric
Cardiovascular: S1/S2; Negative S3/S4
Pulmonary: Non Labored
Skin: Negative Jaundice
Neurological: Awake and Alert
Psychological: Calm
Objective Data
Lab Data
Lab Results
05/26/24 05:12
05/26/24 05:12
PT 14.2 Sec (11.4-14.6) 05/20/24 21:20
INR 1.12 05/20/24 21:20
APTT 37.0 Sec (23.4-35.0) H 05/20/24 21:20
Estimated Creat Clear 52 ml/min 05/26/24 05:12
Lactic Acid Cancelled 05/20/24 16:30
Total Bilirubin Cancelled 05/20/24 13:50
AST Cancelled 05/20/24 13:50
ALT Cancelled 05/20/24 13:50
Alkaline Phosphatase Cancelled 05/20/24 13:50
Most recent labs reviewed.
Micro Results:
05/20/24 15:13 Urine Culture - Final
Urine 60K mixed claribel
Imaging:
05/20/24 CXR: No acute infiltrates.
Care Review
Plan reviewed with: Physician (Hospitalist)
[2024-05-26] MEDS: MYCOSTATIN ORAL SUSPENSION 5 ML PO ×2 (18:10→22:10)
[2024-05-26] MEDS: STERILE WATER FOR INJECTION IV (20:16)
[2024-05-26] MEDS: ROCEPHIN IV (20:16)
[2024-05-26] MEDS: NICODERM TRANSDERMAL 14 MG TRANSDERM (22:11)
[2024-05-26 23:31] VITALS: BP 114/67
--- NOTE | 2024-05-27 07:22 | W.PN.HOSP.TC ---
Today's Communication/Plan
-
exempt ice chips from fluid restriction for symptomatic relief red tongue
IV iron converted to PO
Medically stable for discharge SNF rehab pending insurance auth
Assessment / Plan
Assessment / Plan
HPI: 39-year-old male who identifies as female with past medical history of HIV, AIDS presented to us with poor oral intake for past few days. Patient sleeping most of the day. Patient is complaining of painful urination. Noticed some blood in
the urine. Patient complained of headache and dizziness patient denied any fever, chills, chest pain . Stated some short of breath . Denied abdominal pain, diarrhea, constipation .stated nausea .
#Acute kidney injury
#Non-anion gap metabolic stenosis
Appreciate nephrology input, continue IV fluids
Creatinine 3.7 on admission, baseline 1.0, since improved
Trend creatinine, avoid nephrotoxic drugs/NSAIDs
Mild Cr elevation noted following Bactrim pjp ppx started as below
likely benign elevation, Bactrim known to cause elevated Cr without kidney injury
cont monitoring renal function
Hyponatremia
cont fluid restriction 60 oz
exempt ice chips from fluid restrictions (ice for symptomatic relief red tongue as below)
#Acute urinary tract infection
Urine culture shows contamination
Appreciate ID input, continue Rocephin completed 7 days
monitor off abx
#HIV, noncompliant with antivirals
Last viral load 70 (02/2024 when taking HAART). Last CD4 167 (15%)
Has been off of ART (Biktarvy) since April.
ID rec not resuming ART at this time until pt more stable and ready to be med compliant.
PJP prophylaxis Bactrim started
#Low Back Pain
#previous Lumbar MRI demonstrated bulging disk L4-5 w moderate spinal canal stenosis
cont pain control
K-pad
PT eval appreciated SNF rehab
#Severe Iron Deficiency
#Red Tongue
IV iron supplementation received 3 doses, converted to oral supplement
ice chips and magic mouthwash for symptomatic relief (Exempt Ice Chips from fluid restriction as above)
Nystatin swish started for possible candidiasis exacerbating 05/26
#Failure to thrive
#Severe protein calorie malnutrition
protein supplements
#Anemia of chronic disease
monitor H&H
#Hyponatremia
Monitor
#Hyperkalemia
Resolved
#Polysubstance abuse
#Transgender, male to female
DVT prophylaxis�subcu heparin
Full code
Medically stable for discharge SNF pending Insurance authorization
discussed with patient and patient's aunt/godmother Della
Total time spent to see the patient on the floor, examine the patient, review data and lab results, discuss treatment plan with patient, nursing staff around 40 minutes.
Physical Exam
General: Appears disheveled, no acute distress
HEENT: Normocephalic, Atraumatic, EOMI, MMM red tongue
Respiratory: Clear to Auscultation bilaterally
Cardiac: Normal S1/S2, Regular Rate and Rhythm
GI: Soft, Nontender, Nondistended, Normal Bowel Sounds
Extremities: No Clubbing, Cyanosis, or Edema
Anticipated Discharge: Within 24 hours
Subjective/Interval History
-
Date of Service: May 27, 2024
No acute distress sitting up comfortably in chair. Reports some improvement in tongue pain following start Nystatin Swish yesterday.
Objective Data
-
Labs:
Laboratory Results
05/27/24
06:52
WBC Pending
Hgb Pending
Hct Pending
Plt Count Pending
Sodium Pending
Potassium Pending
Chloride Pending
Carbon Dioxide Pending
BUN Pending
Creatinine Pending
Glucose Pending
Calcium Pending
Vital Signs:
Vital Signs
Temp Pulse Resp BP Pulse Ox
97.9 F 53 19 114/67 97
05/26/24 23:31 05/26/24 23:31 05/26/24 23:31 05/26/24 23:31 05/26/24 23:31
I&O
05/26/24 05/27/24 05/28/24
06:59 06:59 06:59
Intake Total 1080 / 1080 1200 / 1200
Output Total 400 / 400
Balance 1080 / 1080 800 / 800
[2024-05-27 07:36] LABS: Hematocrit 35.5 % (39.0-52.0); Hemoglobin 11.7 g/dL (13.0-18.0); Mean Corpuscular Hgb 24.4 pg (27.0-31.0); Mean Corpuscular Volume 74.1 fL (80.0-94.0); Mean Platelet Volume 8.7 fL (7.4-10.4); Platelet Count 335 10^3/uL (130-400); Red Blood Cell Count 4.79 10^6/uL (4.70-6.10); Red Cell Dist. Width 17.2 % (11.5-14.5); White Blood Cell Count 7.1 10^3/uL (4.8-10.8)
[2024-05-27] MEDS: BACTRIM DS 800 MG/160 MG 1 TABLET PO (07:50)
[2024-05-27] MEDS: MYCOSTATIN ORAL SUSPENSION PO ×4 (07:50→17:12)
[2024-05-27] MEDS: TYLENOL 1000 MG PO ×3 (07:51→23:20)
[2024-05-27] MEDS: HEPARIN SC ×2 (07:51→20:40)
[2024-05-27] MEDS: DESENEX/MITRAZOL/ZEASORB 1 APPLIC TOPICAL ×2 (07:52→20:39)
[2024-05-27] MEDS: LIDOCAINE 4% PATCH 2 PATCH TOPICAL (07:54)
[2024-05-27 07:55] VITALS: BP 103/68
[2024-05-27] MEDS: ROXICODONE 5 MG PO (08:00)
[2024-05-27 08:02] LABS: Blood Urea Nitrogen 24 mg/dl (9-20); Carbon Dioxide 21 mmol/L (22-30); Chloride 97 mmol/L (98-107); Estimated Creatinine Clearance 56 ml/min; Glucose 154 mg/dl (70-99); Phosphorus 3.4 mg/dl (2.5-4.5); Potassium 4.8 mmol/L (3.5-5.1); Sodium 131 mmol/L (135-145); eGFR > 60.00
[2024-05-27] MEDS: FIRST-MOUTHWASH BLM SUSPENSION PO ×3 (08:02→17:11)
--- NOTE | 2024-05-27 10:29 | CM ---
Addendum entered by Yessenia Bennett 05/29/24 10:00:
DREW reviewed chart. Folllow up call placed to [facility] for status of auth @ [phone]- [phone] office is currently closed. DREW/MUSA will need to follow on Thursday regarding status of auth for [facility].
Addendum entered by Monserrat Hogan 05/27/24 10:52:
[facility]
REPORT #: [phone]
FAX #: [phone]
Original Note:
Met patient today. Patient out of bed in chair.
PT/OT eval today.
Spoke with Danielle at [facility] [phone] who gave pended insurance authorization #[id number]
Clinicals faxed to [phone]
Will await for ins. authorization for [facility] - patient made aware & agreeable.
PLAN: [facility], pending insurance authorization
--- NOTE | 2024-05-27 11:50 | W.PN.ID1 ---
Date of Service
Date of Service: May 27, 2024
Today's Communication
Continue Bactrim. Will follow-up as an outpatient.
Assessment / Plan
# HIV, noncompliant with medications as outpatient
- Last viral load 70 (02/2024; while on HAART)
- Last CD4 : 167 (11%)(04/2024)
- Has been off of ART (Biktarvy) since April; non-compliant with meds beforehand
- Will not resume ART at this time until pt more stable and ready / able to be compliant, given significant risk of viral resistance developing which cannot be reversed.
- ALVA improved, continue PJP prophylaxis with Bactrim DS qMWF
# Symptomatic UTI
- Ucx contaminated specimen
- GC / Chlam : negtive
- s/p 7 days Ceftriaxone.
- May need Urology eval if symptoms persist.
# ALVA - improving
- Nephrology following
# Severe protein-calorie malnutrition
Patient for discharge to [facility] facility. I suspect needs for care will be ongoing. Doubt patient can perform ADLs independently and without significant support.
����������������������������������������������������������
Chief Complaint
-: Other (HIV)
Subjective / Review of Systems
Review of Systems: No Fever
Vital Signs / Physical Exam
Vital Signs
Vital Signs
Temp Pulse Resp BP Pulse Ox
98.3 F 67 16 103/68 98
05/27/24 07:55 05/27/24 07:55 05/27/24 07:55 05/27/24 07:55 05/27/24 10:52
Physical Exam
Constitutional: Chronically Ill, Non-toxic and Cachetic (Mild)
Eyes: Sclera Anicteric
Cardiovascular: S1/S2; Negative S3/S4
Pulmonary: Non Labored
Skin: Negative Jaundice
Neurological: Awake and Alert
Psychological: Calm
Objective Data
Lab Data
Lab Results
05/27/24 06:52
05/27/24 06:52
PT 14.2 Sec (11.4-14.6) 05/20/24 21:20
INR 1.12 05/20/24 21:20
APTT 37.0 Sec (23.4-35.0) H 05/20/24 21:20
Estimated Creat Clear 56 ml/min 05/27/24 06:52
Lactic Acid Cancelled 05/20/24 16:30
Total Bilirubin Cancelled 05/20/24 13:50
AST Cancelled 05/20/24 13:50
ALT Cancelled 05/20/24 13:50
Alkaline Phosphatase Cancelled 05/20/24 13:50
Most recent labs reviewed.
Micro Results:
05/20/24 15:13 Urine Culture - Final
Urine
Imaging:
05/20/24 CXR: No acute infiltrates.
[2024-05-27] MEDS: FEOSOL 325 MG PO (13:08)
[2024-05-27] MEDS: THERAGRAN 1 TABLET PO (13:08)
[2024-05-27 15:00] VITALS: BP 107/72
[2024-05-27 23:00] VITALS: BP 101/67
[2024-05-27] MEDS: MYCOSTATIN ORAL SUSPENSION 5 ML PO (23:20)
[2024-05-27] MEDS: NICODERM TRANSDERMAL 14 MG TRANSDERM (23:20)
[2024-05-28] MEDS: ROXICODONE 5 MG PO ×2 (01:23→14:27)
[2024-05-28 06:42] LABS: Hematocrit 35.4 % (39.0-52.0); Hemoglobin 11.7 g/dL (13.0-18.0); Mean Corp Hgb Conc. 33.1 g/dL (33.0-37.0); Mean Corpuscular Hgb 25.1 pg (27.0-31.0); Mean Corpuscular Volume 75.8 fL (80.0-94.0); Mean Platelet Volume 9.6 fL (7.4-10.4); Platelet Count 213 10^3/uL (130-400); Red Blood Cell Count 4.67 10^6/uL (4.70-6.10); Red Cell Dist. Width 17.1 % (11.5-14.5); White Blood Cell Count 7.1 10^3/uL (4.8-10.8)
[2024-05-28 06:59] LABS: Blood Urea Nitrogen 26 mg/dl (9-20); Calcium 8.7 mg/dl (8.4-10.2); Carbon Dioxide 19 mmol/L (22-30); Chloride 101 mmol/L (98-107); Estimated Creatinine Clearance 60 ml/min; Glucose 89 mg/dl (70-99); Magnesium 2.2 mg/dl (1.6-2.3); Phosphorus 4.5 mg/dl (2.5-4.5); Potassium 4.9 mmol/L (3.5-5.1); Sodium 135 mmol/L (135-145); eGFR > 60.00
[2024-05-28 07:00] VITALS: BP 99/50
--- NOTE | 2024-05-28 07:46 | W.PN.HOSP.TC ---
Today's Communication/Plan
-
stable for discharge SNF rehab pending insurance auth
Assessment / Plan
Assessment / Plan
HPI: 39-year-old male who identifies as female with past medical history of HIV, AIDS presented to us with poor oral intake for past few days. Patient sleeping most of the day. Patient is complaining of painful urination. Noticed some blood in
the urine. Patient complained of headache and dizziness patient denied any fever, chills, chest pain . Stated some short of breath . Denied abdominal pain, diarrhea, constipation .stated nausea .
#Acute kidney injury
#Non-anion gap metabolic stenosis
Appreciate nephrology input, continue IV fluids
Creatinine 3.7 on admission, baseline 1.0, since improved
Trend creatinine, avoid nephrotoxic drugs/NSAIDs
Mild Cr elevation noted following Bactrim pjp ppx started as below
likely benign elevation, Bactrim known to cause elevated Cr without kidney injury
cont monitoring renal function
Hyponatremia
cont fluid restriction 60 oz
exempt ice chips from fluid restrictions (ice for symptomatic relief red tongue as below)
#Acute urinary tract infection
Urine culture shows contamination
Appreciate ID input, continue Rocephin completed 7 days
monitor off abx
#HIV, noncompliant with antivirals
Last viral load 70 (02/2024 when taking HAART). Last CD4 167 (15%)
Has been off of ART (Biktarvy) since April.
ID rec not resuming ART at this time until pt more stable and ready to be med compliant.
PJP prophylaxis Bactrim started
#Low Back Pain
#previous Lumbar MRI demonstrated bulging disk L4-5 w moderate spinal canal stenosis
cont pain control
K-pad
PT eval appreciated SNF rehab
#Severe Iron Deficiency
#Red Tongue
IV iron supplementation received 3 doses, converted to oral supplement
ice chips and magic mouthwash for symptomatic relief (Exempt Ice Chips from fluid restriction as above)
Nystatin swish started for possible candidiasis exacerbating 05/26
#Failure to thrive
#Severe protein calorie malnutrition
protein supplements
#Anemia of chronic disease
monitor H&H
#Hyponatremia
Monitor
#Hyperkalemia
Resolved
#Polysubstance abuse
#Transgender, male to female
DVT prophylaxis�subcu heparin
Full code
Medically stable for discharge SNF pending Insurance authorization
Total time spent to see the patient on the floor, examine the patient, review data and lab results, discuss treatment plan with patient, nursing staff around 35 minutes.
Physical Exam
General: Appears disheveled, no acute distress
HEENT: Normocephalic, Atraumatic, EOMI, MMM red tongue
Respiratory: Clear to Auscultation bilaterally
Cardiac: Normal S1/S2, Regular Rate and Rhythm
GI: Soft, Nontender, Nondistended, Normal Bowel Sounds
Extremities: No Clubbing, Cyanosis, or Edema
Anticipated Discharge: 24 - 48 hours
Subjective/Interval History
-
Date of Service: May 28, 2024
no acute distress. reports improvement in tongue, mouth pain
Objective Data
-
Labs:
Laboratory Results
05/28/24
05:30
WBC 7.1
Hgb 11.7 L
Hct 35.4 L
Plt Count 213 D
Sodium 135
Potassium 4.9
Chloride 101
Carbon Dioxide 19 L
BUN 26 H
Creatinine 1.3
Glucose 89
Calcium 8.7
Vital Signs:
Vital Signs
Temp Pulse Resp BP Pulse Ox
99.2 F 115 16 101/67 96
05/27/24 23:00 05/27/24 23:00 05/27/24 23:00 05/27/24 23:00 05/28/24 00:48
I&O
05/27/24 05/28/24 05/29/24
06:59 06:59 06:59
Intake Total 1200 / 1200 1620 / 1620
Output Total 400 / 400 570 / 570
Balance 800 / 800 1050 / 1050
[2024-05-28] MEDS: TYLENOL 1000 MG PO ×3 (08:06→23:06)
[2024-05-28] MEDS: FEOSOL 325 MG PO (08:06)
[2024-05-28] MEDS: THERAGRAN 1 TABLET PO (08:06)
[2024-05-28] MEDS: HEPARIN SC ×2 (08:07→19:56)
[2024-05-28] MEDS: DESENEX/MITRAZOL/ZEASORB 1 APPLIC TOPICAL ×2 (08:07→19:57)
[2024-05-28] MEDS: LIDOCAINE 4% PATCH 2 PATCH TOPICAL (08:08)
[2024-05-28] MEDS: MYCOSTATIN ORAL SUSPENSION 5 ML PO ×2 (08:08→23:06)
[2024-05-28] MEDS: MYCOSTATIN ORAL SUSPENSION PO ×2 (12:32→17:03)
[2024-05-28 15:00] VITALS: BP 114/57
[2024-05-28] MEDS: NICODERM TRANSDERMAL 14 MG TRANSDERM (23:06)
[2024-05-28 23:31] VITALS: BP 108/65
[2024-05-29 07:00] VITALS: BP 108/62
--- NOTE | 2024-05-29 07:12 | W.PN.HOSP.TC ---
Today's Communication/Plan
-
Medically stable for discharge SNF pending Insurance authorization
Assessment / Plan
Assessment / Plan
HPI: 39-year-old male who identifies as female with past medical history of HIV, AIDS presented to us with poor oral intake for past few days. Patient sleeping most of the day. Patient is complaining of painful urination. Noticed some blood in
the urine. Patient complained of headache and dizziness patient denied any fever, chills, chest pain . Stated some short of breath . Denied abdominal pain, diarrhea, constipation .stated nausea .
#Acute kidney injury
#Non-anion gap metabolic stenosis
Appreciate nephrology input, continue IV fluids
Creatinine 3.7 on admission, baseline 1.0, since improved
Trend creatinine, avoid nephrotoxic drugs/NSAIDs
Mild Cr elevation noted following Bactrim pjp ppx started as below
likely benign elevation, Bactrim known to cause elevated Cr without kidney injury
cont monitoring renal function
Hyponatremia
cont fluid restriction 60 oz
exempt ice chips from fluid restrictions (ice for symptomatic relief red tongue as below)
#Acute urinary tract infection
Urine culture shows contamination
Appreciate ID input, continue Rocephin completed 7 days
monitor off abx
#HIV, noncompliant with antivirals
Last viral load 70 (02/2024 when taking HAART). Last CD4 167 (15%)
Has been off of ART (Biktarvy) since April.
ID rec not resuming ART at this time until pt more stable and ready to be med compliant.
PJP prophylaxis Bactrim started
#Low Back Pain
#previous Lumbar MRI demonstrated bulging disk L4-5 w moderate spinal canal stenosis
cont pain control
K-pad
PT eval appreciated SNF rehab
#Severe Iron Deficiency
#Red Tongue
IV iron supplementation received 3 doses, converted to oral supplement
ice chips and magic mouthwash for symptomatic relief (Exempt Ice Chips from fluid restriction as above)
Nystatin swish started for possible candidiasis exacerbating 05/26 plan for 7 days treatment
#Failure to thrive
#Severe protein calorie malnutrition
protein supplements
#Anemia of chronic disease
monitor H&H
#Hyponatremia
Monitor
#Hyperkalemia
Resolved
#Polysubstance abuse
#Transgender, male to female
DVT prophylaxis�subcu heparin
Full code
Medically stable for discharge SNF pending Insurance authorization
Total time spent to see the patient on the floor, examine the patient, review data and lab results, discuss treatment plan with patient, nursing staff around 35 minutes.
Physical Exam
General: Appears disheveled, no acute distress
HEENT: Normocephalic, Atraumatic, EOMI, MMM red tongue
Respiratory: Clear to Auscultation bilaterally
Cardiac: Normal S1/S2, Regular Rate and Rhythm
GI: Soft, Nontender, Nondistended, Normal Bowel Sounds
Extremities: No Clubbing, Cyanosis, or Edema
Anticipated Discharge: Within 24 hours
Subjective/Interval History
-
Date of Service: May 29, 2024
No acute distress. Reports overall feeling well. Red tongue pain soreness significantly improved/resolving
Objective Data
-
Vital Signs:
Vital Signs
Temp Pulse Resp BP Pulse Ox
98.8 F 115 17 108/65 98
05/28/24 23:31 05/28/24 23:31 05/28/24 23:31 05/28/24 23:31 05/28/24 23:51
I&O
05/28/24 05/29/24 05/30/24
06:59 06:59 06:59
Intake Total 1620 / 1620 1280 / 1280
Output Total 570 / 570 625 / 625
Balance 1050 / 1050 655 / 655
[2024-05-29] MEDS: DESENEX/MITRAZOL/ZEASORB 1 APPLIC TOPICAL ×2 (08:48→20:51)
[2024-05-29] MEDS: THERAGRAN 1 TABLET PO (08:48)
[2024-05-29] MEDS: MYCOSTATIN ORAL SUSPENSION 5 ML PO ×4 (08:48→20:56)
[2024-05-29] MEDS: FEOSOL 325 MG PO (08:49)
[2024-05-29] MEDS: TYLENOL 1000 MG PO ×3 (08:49→20:56)
[2024-05-29] MEDS: LIDOCAINE 4% PATCH 2 PATCH TOPICAL (08:49)
[2024-05-29] MEDS: HEPARIN SC ×2 (08:49→20:51)
[2024-05-29] MEDS: ROXICODONE 5 MG PO ×2 (09:13→22:46)
[2024-05-29 15:00] VITALS: BP 105/61
[2024-05-29] MEDS: NICODERM TRANSDERMAL 14 MG TRANSDERM (22:44)
[2024-05-29 23:12] VITALS: BP 102/53
[2024-05-30 08:31] VITALS: BP 102/57
[2024-05-30] MEDS: MYCOSTATIN ORAL SUSPENSION 5 ML PO ×2 (08:45→12:10)
[2024-05-30] MEDS: THERAGRAN 1 TABLET PO (08:47)
[2024-05-30] MEDS: FEOSOL 325 MG PO (08:47)
[2024-05-30] MEDS: LIDOCAINE 4% PATCH 2 PATCH TOPICAL (08:47)
[2024-05-30] MEDS: BACTRIM DS 800 MG/160 MG 1 TABLET PO (08:47)
[2024-05-30] MEDS: TYLENOL 1000 MG PO (08:47)
--- NOTE | 2024-05-30 08:48 | W.PN.HOSP.TC ---
Today's Communication/Plan
-
Discharge to short-term rehab today
Assessment / Plan
Assessment / Plan
HPI: 39-year-old male who identifies as female with past medical history of HIV, AIDS presented to us with poor oral intake for past few days. Patient sleeping most of the day. Patient is complaining of painful urination. Noticed some blood in
the urine. Patient complained of headache and dizziness patient denied any fever, chills, chest pain . Stated some short of breath . Denied abdominal pain, diarrhea, constipation .stated nausea .
#Acute kidney injury
#Non-anion gap metabolic stenosis
Appreciate nephrology input, continue IV fluids
Creatinine 3.7 on admission, baseline 1.0, since improved to 1.3
Trend creatinine, avoid nephrotoxic drugs/NSAIDs
Mild Cr elevation noted following Bactrim pjp ppx started as below
Likely benign elevation, Bactrim known to cause elevated Cr without kidney injury
Medically stable for discharge to short-term rehab today
#Hyponatremia
Continue fluid restriction 60 oz
Exempt ice chips from fluid restrictions (ice for symptomatic relief red tongue as below)
Sodium 135 today, was as low as 127
#Acute urinary tract infection
Urine culture shows contamination
Appreciate ID input, s/p Rocephin completed 7 days
Monitor off abx
#HIV, noncompliant with antivirals
Last viral load 70 (02/2024 when taking HAART). Last CD4 167 (15%)
Has been off of ART (Biktarvy) since April.
ID rec not resuming ART at this time until pt more stable and ready to be med compliant.
PJP prophylaxis Bactrim started
#Low Back Pain
#Previous Lumbar MRI demonstrated bulging disk L4-5 w moderate spinal canal stenosis
cont pain control, K-pad
PT eval appreciated SNF rehab
#Severe Iron Deficiency
#Red Tongue
IV iron supplementation received 3 doses, converted to oral supplement
Ice chips and magic mouthwash for symptomatic relief (Exempt Ice Chips from fluid restriction as above)
Nystatin swish started for possible candidiasis exacerbating 05/26 plan for 7 days treatment
#Failure to thrive
#Severe protein calorie malnutrition
protein supplements
#Anemia of chronic disease
monitor H&H
#Hyponatremia
Monitor
#Hyperkalemia
Resolved
#Polysubstance abuse
#Transgender, male to female
DVT prophylaxis�subcu heparin
Full code
Physical Exam
General: Appears disheveled, thin, no acute distress
HEENT: Normocephalic, Atraumatic, EOMI, MMM red tongue
Respiratory: Clear to Auscultation bilaterally
Cardiac: Normal S1/S2, Regular Rate and Rhythm
GI: Soft, Nontender, Nondistended, Normal Bowel Sounds
Extremities: No Clubbing, Cyanosis, or Edema
Anticipated Discharge: Today
Subjective/Interval History
-
Date of Service: May 30, 2024
No nausea, no vomiting. Patient reports eating well. Does complain of lower back pain from her herniated disc.
Objective Data
-
Vital Signs:
Vital Signs
Temp Pulse Resp BP Pulse Ox
99.2 F 61 12 102/57 98
05/30/24 08:31 05/30/24 08:31 05/30/24 08:31 05/30/24 08:31 05/30/24 08:31
I&O
05/29/24 05/30/24 05/31/24
06:59 06:59 06:59
Intake Total 1280 / 1280 1900 / 1900
Output Total 625 / 625 825 / 825
Balance 655 / 655 1075 / 1075
[2024-05-30] MEDS: HEPARIN SC (08:49)
[2024-05-30] MEDS: DESENEX/MITRAZOL/ZEASORB 1 APPLIC TOPICAL (08:49)
[2024-05-30] MEDS: ROXICODONE 5 MG PO (08:58)
--- NOTE | 2024-05-30 09:12 | CM ---
PER GEOVANI Hughes. AUTHORIZATION FOR [facility] APPROVED.
APPROVAL AUTH # [id number]
Start date 05/30/23 - NRD 06/06/24
Updates fax # [phone] - Geovani Hughes
Called [facility] liaison and updated. Bed available today
tt hospitalist
PLAN: [facility]
Report #: [phone]
Fax #: [phone]
--- NOTE | 2024-05-30 12:36 | W.PN.ID1 ---
Date of Service
Date of Service: May 30, 2024
Today's Communication
Continue bactrim.
Assessment / Plan
# HIV, noncompliant with medications as outpatient
- Last viral load 70 (02/2024; while on HAART)
- Last CD4 : 167 (11%)(04/2024)
- Has been off of ART (Biktarvy) since April; non-compliant with meds beforehand
- Will not resume ART at this time until pt more stable and ready / able to be compliant, given significant risk of viral resistance developing, which cannot be reversed.
- ALVA improved, continue PJP prophylaxis with Bactrim DS qMWF
# Symptomatic UTI
- improved
- Ucx contaminated specimen
- GC / Chlam : negtive
- s/p 7 days Ceftriaxone.
# ALVA - improving
- Nephrology following
# Severe protein-calorie malnutrition
Patient for discharge to [facility] facility. I suspect needs for care will be ongoing. Doubt patient can perform ADLs independently and without significant support.
����������������������������������������������������������
Chief Complaint
-: Other (HIV(+))
Subjective / Review of Systems
Review of Systems: No Fever and No Chills
Vital Signs / Physical Exam
Vital Signs
Vital Signs
Temp Pulse Resp BP Pulse Ox
99.2 F 61 12 102/57 98
05/30/24 08:31 05/30/24 08:31 05/30/24 08:31 05/30/24 08:31 05/30/24 11:52
Physical Exam
Constitutional: No Acute Distress, Comfortable and Non-toxic
Eyes: Sclera Anicteric
Cardiovascular: S1/S2; Negative S3/S4
Pulmonary: Non Labored
Gastrointestinal: Non Distended
Skin: Negative Jaundice
Neurological: Awake and Alert
Psychological: Calm
Objective Data
Lab Data
Lab Results
05/28/24 05:30
05/28/24 05:30
PT 14.2 Sec (11.4-14.6) 05/20/24 21:20
INR 1.12 05/20/24 21:20
APTT 37.0 Sec (23.4-35.0) H 05/20/24 21:20
Estimated Creat Clear 60 ml/min 05/28/24 05:30
Lactic Acid Cancelled 05/20/24 16:30
Total Bilirubin Cancelled 05/20/24 13:50
AST Cancelled 05/20/24 13:50
ALT Cancelled 05/20/24 13:50
Alkaline Phosphatase Cancelled 05/20/24 13:50
Most recent labs reviewed.
Micro Results:
05/20/24 15:13 Urine Culture - Final
Urine
Imaging:
05/20/24 CXR: No acute infiltrates.
[2024-05-30 13:45] VITALS: BP 105/60
--- NOTE | 2024-05-31 02:51 | W.DCSUMMARY ---
Discharge Summary
Discharge Data
Date of Admission: 05/20/24
Date of Discharge: 05/30/24
-
Pending Results: No
Hospital Course
39 transgender, identifies as female, with past medical history of HIV, AIDS p/w poor oral intake for past few days and dysuria. Acute kidney injury, Non-anion gap metabolic acidosis, Nephrology evaluated and patient was treated with IV fluids.
Creatinine 3.7 on admission, baseline 1.0, since improved to 1.3. Trend creatinine, avoid nephrotoxic drugs/NSAIDs. Mild Cr elevation noted following Bactrim pjp ppx started as below. Likely benign elevation, Bactrim known to cause elevated Cr
without kidney injury. Hyponatremia was treated and resolved with fluid restriction. Restriction was gradually relaxed to 64 oz on discharge. Ice chips were exempt from fluid restrictions for symptomatic relief red tongue. For acute urinary
tract infection, urine culture showed contamination. Appreciate ID input, patient completed 7 days Rocephin. HIV, noncompliant with antivirals, last viral load 70 (02/2024 when taking HAART). Last CD4 167 (15%). Has been off of ART (Biktarvy)
since April.
ID rec not resuming ART at this time until pt more stable and ready to be med compliant. PJP prophylaxis Bactrim started. Low Back Pain, previous Lumbar MRI demonstrated bulging disk L4-5 w moderate spinal canal stenosis, treated conservatively
with pain control and K-pad. PT evaluated and recommended SNF rehab. Severe Iron Deficiency, Red Tongue, pt was treated with IV iron supplementation received 3 doses, converted to oral supplement prior to discharge. Treated with Ice chips and
magic mouthwash for symptomatic relief. Nystatin swish started for possible oral candidiasis exacerbating 05/26 plan for 7 days treatment. Symptom subsequently improved prior to discharge. Medically stable, patient was discharged home with
outpatient follow up recommendations.
Discharge Plan
-
Patient Disposition: Jail/SNF
Discharge Diagnosis/Procedures: Acute kidney injury
Hyponatremia
Urinary Tract Infection
HIV, noncompliant with antivirals
Low Back Pain
previous Lumbar MRI demonstrated bulging disc L4-5 with moderate spinal canal stenosis
Severe Iron Deficiency
Red Tongue likely due to iron deficiency possibly exacerbated by oral candidiasis
Failure to thrive
Severe protein calorie malnutrition
Anemia of chronic disease
Transgender, male to female
Condition: Fair
Diet: Restrict fluids to 64 oz
Additional Diets: Ensure Enlive Chocolate (or choice flavor) twice a day
Activity: With assistance, As tolerated and With Walker
Driving Restrictions: Not until seen by your Dr
Bathing Restrictions: None
Blood Work: Please repeat CBC and BMP with primary care provider in 1 week of discharge
Repeat Iron studies with primary care provider in 1 month of discharge.
Other Services: PT and OT
Activity Restrictions/Additional Instructions:
Please follow up with primary care provider in 1 week of discharge and, in 1 month of discharge, Infectious Disease and Nephrology
Iron supplementation prescribed for severe iron deficiency.
Nystatin swish prescribed for suspect oral candidiasis- to continue through 06/02/24 then stop.
Bactrim has been prescribed as prophylaxis against certain opportunistic infections that your HIV status puts at risk for.
Lidocaine patch and as needed oxycodone have been prescribed for back pain.
Multivitamin prescribed for nutrition support.
Please take medications as prescribed/recommended and follow up with primary care provider and/or other healthcare provider involved in your care for refills and/or further adjustment to your medication regimen as necessary.
Referrals:
Herrera Cullen DO [Active] - in one month
Donny Cote MD [Active] - in one month
El Perez MD [Family Provider] - in one week
Prescriptions:
New
lidocaine 4 % Adhesive Patch,Medicated
2 patch topical DAILY 7 Days Qty: 14 0RF
Rx Instructions:
Apply to lower back
sulfamethoxazole-trimethoprim 800-160 mg Tablet
1 tab PO MOWEFR@0800 30 Days Qty: 13 0RF
ferrous sulfate [FeroSul] 325 mg (65 mg iron) Tablet
325 mg PO DAILY 30 Days Qty: 30 0RF
nystatin 100,000 unit/mL Suspension
5 ml PO QID Qty: 200 0RF
Rx Instructions:
06/02/24 is last day for treatment suspected oral candidiasis
nicotine 14 mg/24 hr Patch 24 Hour
14 mg transdermal DAILY@2300 7 Days Qty: 7 0RF
multivitamin with folic acid [Tab-A-Zachary] 400 mcg Tablet
1 tab PO DAILY 30 Days Qty: 30 0RF
oxycodone 5 mg tablet
5 mg PO BID PRN (Reason: Pain) Qty: 10 0RF
Continued
acetaminophen [Tylenol Extra Strength] 500 mg Tablet
1,000 mg PO Q6HPRN PRN (Reason: mild pain)
Discontinued
Biktarvy 50-200-25 mg Tablet
1 tab PO DAILY
Discharge Orders:
Discharge Patient (As Directed); Ordered 05/30/24
Ordered By: Lobito Hatfield
Discharge Date and Time
Discharge Date/Time: 05/30/24 13:57
Print Language: GEORGIAN
== END 2024-05-30 13:57 | DRG 682 ==
LOC: 2 NORTH 16:45
PROVIDERS: Internal Medicine; Physician Assistant Medical; Registered Nurse; ADMITTING PHYSICIAN Internal Medicine; ATTENDING PHYSICIAN Family Medicine; CONSULT PHYSICIAN Internal Medicine Infectious Disease; CONSULT PHYSICIAN Specialist; EMERGENCY PHYSICIAN Emergency Medicine; FAMILY PHYSICIAN Family Medicine; OTHER PHYSICIAN Internal Medicine Critical Care Medicine
DX: N17.9 Acute kidney failure, unspecified (principal); E43 Unspecified severe protein-calorie malnutrition; B20 Human immunodeficiency virus [HIV] disease; E87.1 Hypo-osmolality and hyponatremia; N39.0 Urinary tract infection, site not specified; Z68.1 Body mass index [BMI] 19.9 or less, adult; M48.061 Spinal stenosis, lumbar region without neurogenic claudication; E86.0 Dehydration; E61.1 Iron deficiency; R62.7 Adult failure to thrive; D63.8 Anemia in other chronic diseases classified elsewhere; F64.0 Transsexualism; F12.90 Cannabis use, unspecified, uncomplicated; E87.5 Hyperkalemia; F15.10 Other stimulant abuse, uncomplicated; F17.200 Nicotine dependence, unspecified, uncomplicated; F41.1 Generalized anxiety disorder; Z91.199 Patient's noncompliance with other medical treatment and regimen due to unspecified reason; Z79.899 Other long term (current) drug therapy
CPT/HCPCS: 51798; 71045; 80048; 80306; 80307; 81003; 81015; 82550; 82607; 82746; 83540; 83550; 83605; 83735; 84100; 85025; 85027; 85610; 85730; 87086; 93005; 96361; 96374; 96375; 97116; 97162; 97167; 97530; 97535; 99291; 99406; J2916

== ENCOUNTER 2024-06-09 11:41 | Emergency (ER) | payer OTHER, SELFPAY ==
[2024-06-09 11:49] VITALS: BP 126/91
--- NOTE | 2024-06-09 12:05 | ED.GENMED ---
History of Present Illness
General
Chief Complaint: Substance Abuse
Source: patient and ambulance crew
Exam Limitations: none
Time Seen by Provider: 06/09/24 11:49
Nursing documentation reviewed up to this point in time: agreed with
History of Present Illness
History of Present Illness:
39-year-old female presents emergency room feeling depressed, and today decided to smoke marijuana and snorting ketamine. Patient denies suicidal or homicidal ideation. Complains of nausea and weakness.
Past History
Past History
ED Past Medical History: Psychiatric (Anxiety, depression), Other (Gender change, brachial plexus injury since - R) and Other (HIV positive)
ED Past Surgical History: Orthopedic
Social History
Tobacco: Smoker
Alcohol: Occasional
Drug: Former user
Personal: Single
Living: with roommate
Employment: Not employed
Review of Systems
Review of Systems
Allergies reviewed?: Yes
All Other Systems: Not applicable
Constitutional: Reports no symptoms
Phy Exam
Physical Exam
Physical Exam:
Physical Exam
General: no apparent distress, not acutely ill
Neck: supple. no meningeal signs. normal posterior pharynx
Heart: s1/s2 tachycardia, regular rhythm, no murmur. equal radial
pulses.
HEENT: Pupils equal round reactive to light, EOMI
Lungs: no acute respiratory distress. clear bilaterally
Abdomen: normal bowel sounds. not tender. no CVAT
Neuro: alert and oriented. no focal neurological deficits cranial nerves II through XII intact
Skin: no rash
Psychiatric: well kept. interactive and cooperative
Extremities: no edema. no calf tenderness. negative homans. good distal pulses
Course
Orders/Labs/Results
Orders:
Orders
06/09/24 12:04
Electrocardiogram (*1) Stat
Reason for Study: Tachycardia
Electrocardiogram (*1) Urgent
Reason for Study: Tachycardia
EKG- Treatment ONCE
06/09/24 12:07
Acetaminophen Urgent
Alcohol Urgent
Basic Metabolic Panel Urgent
Complete Blood Count/With Diff Urgent
Salicylate Urgent
Abnormal Lab Results
06/09/24
12:07
Hgb 11.9 L g/dL
(13.0-18.0)
Hct 35.3 L %
(39.0-52.0)
MCV 73.7 L fL
(80.0-94.0)
MCH 24.8 L pg
(27.0-31.0)
RDW 17.7 H %
(11.5-14.5)
Plt Count 845 H 10^3/uL
(130-400)
Abs Immat Gran (auto) 0.1 H 10^3/uL
(0-0.05)
Absolute Neuts (auto) 7.1 H 10^3/uL
(1.4-6.5)
Absolute Monos (auto) 1.1 H 10^3/uL
(0.1-0.6)
Immature Gran % 0.6 H %
(0-0.5)
Lymphocytes % 15.2 L %
(20.5-51.1)
Monocytes % 11.0 H %
(1.7-9.3)
Sodium 129 L mmol/L
(135-145)
Chloride 96 L mmol/L
(98-107)
Carbon Dioxide 7 L* mmol/L
(22-30)
BUN 54 H mg/dl
(9-20)
Creatinine 3.6 H mg/dL
(0.7-1.3)
Glucose 121 H mg/dl
(70-99)
Salicylates < 1.0 L mg/dl
(2.0-20.0)
Acetaminophen < 10 L ug/ml
(10-30)
06/09/24 12:07
06/09/24 12:07
Vital Signs
Initial and Last Documented VS:
Initial Vital Signs
Temp Pulse Resp BP Pulse Ox
97.7 F 110 16 126/91 96
06/09/24 11:49 06/09/24 11:49 06/09/24 11:49 06/09/24 11:49 06/09/24 11:49
Last Documented Vital Signs
Temp Pulse Resp BP Pulse Ox
97.7 F 110 16 126/91 96
06/09/24 11:49 06/09/24 11:49 06/09/24 11:49 06/09/24 11:49 06/09/24 11:49
MDM/Problems Addressed
Differential Diagnosis Includes:
Drug abuse
MDM/Problems Addressed:
39-year-old male identifies as female with known chronic kidney disease and HIV, ketamine and marijuana abuse today. Patient had IV placed and eloped. Police notified. Security notified. Patient denies suicidal homicidal ideation.
Chronic conditions affecting care: Kidney disease and Other (HIV)
*Pulse Oximetry
Patient hypoxic: no
*Critical Care Note
Total Time (30-74mins, 75-104mins- exclusive of procedures): Not Applicable
Patient Management
Social determinants of health affecting care: Living situation and Substance abuse
Escalation/DeEscalation of care consider admission/obs:
Failure patient eloped
ED Attending Note
-
Portions of this chart may have been created with voice recognition software.� Occasional wrong word or��sound alike� substitutions may have occurred due to the inherent limitations of voice recognition software.
Discharge Plan
Departure
Patient Disposition: Elopement
Date of Disposition: 06/09/24
Time of Disposition: 13:07
Patient with high blood pressure during this ER visit?: Yes
Condition: Fair
Discharge Problem:
Renal failure, [id number] transgender person
Instructions: BLOOD PRESSURE
Prescriptions:
No Action
acetaminophen [Tylenol Extra Strength] 500 mg Tablet
1,000 mg PO Q6HPRN PRN (Reason: mild pain)
lidocaine 4 % Adhesive Patch,Medicated
2 patch topical DAILY 7 Days Qty: 14 0RF
Rx Instructions:
Apply to lower back
sulfamethoxazole-trimethoprim 800-160 mg Tablet
1 tab PO MOWEFR@0800 30 Days Qty: 13 0RF
ferrous sulfate [FeroSul] 325 mg (65 mg iron) Tablet
325 mg PO DAILY 30 Days Qty: 30 0RF
nystatin 100,000 unit/mL Suspension
5 ml PO QID Qty: 200 0RF
Rx Instructions:
06/02/24 is last day for treatment suspected oral candidiasis
nicotine 14 mg/24 hr Patch 24 Hour
14 mg transdermal DAILY@2300 7 Days Qty: 7 0RF
multivitamin with folic acid [Tab-A-Zachary] 400 mcg Tablet
1 tab PO DAILY 30 Days Qty: 30 0RF
oxycodone 5 mg tablet
5 mg PO BID PRN (Reason: Pain) Qty: 10 0RF
Referrals:
Baldev Alejo I., DO [Family Provider] -
Interventions
Interventions:
*Risk Screen - Suicide Last Done: 06/09/24 11:49
*General Assessment Last Done: 06/09/24 11:49
*Neglect/Abuse Screening Last Done: 06/09/24 11:49
Discharge Date and Time
Print Language: SOU[place]
[2024-06-09 12:33] LABS: % Basophils 0.2 % (0-2); % Eosinophils 0.1 % (0-6); % Immature Granulocytes 0.6 % (0-0.5); % Lymphocytes 15.2 % (20.5-51.1); % Neutrophils 72.9 % (42.2-75.2); Absolute Immature Granulocytes 0.1 10^3/uL (0-0.05); Absolute Lymphocytes 1.5 10^3/uL (1.2-3.4); Absolute Monocytes 1.1 10^3/uL (0.1-0.6); Absolute Neutrophils 7.1 10^3/uL (1.4-6.5); Hematocrit 35.3 % (39.0-52.0); Hemoglobin 11.9 g/dL (13.0-18.0); Mean Corp Hgb Conc. 33.7 g/dL (33.0-37.0); Mean Corpuscular Hgb 24.8 pg (27.0-31.0); Mean Corpuscular Volume 73.7 fL (80.0-94.0); Mean Platelet Volume 8.7 fL (7.4-10.4); Nucleated Red Blood Cells % 0 % (-); Platelet Count 845 10^3/uL (130-400); Red Blood Cell Count 4.79 10^6/uL (4.70-6.10); Red Cell Dist. Width 17.7 % (11.5-14.5); White Blood Cell Count 9.7 10^3/uL (4.8-10.8)
[2024-06-09 12:55] LABS: Acetaminophen < 10 ug/ml (10-30); Alcohol None Detected; Blood Urea Nitrogen 54 mg/dl (9-20); Calcium 9.7 mg/dl (8.4-10.2); Carbon Dioxide 7 mmol/L (22-30); Chloride 96 mmol/L (98-107); Glucose 121 mg/dl (70-99); Salicylate < 1.0 mg/dl (2.0-20.0); Sodium 129 mmol/L (135-145); eGFR 21.24
== END 2024-06-09 12:35 | disposition left against medical advice (07) ==
LOC: EMR 11:41
PROVIDERS: EMERGENCY PHYSICIAN Emergency Medicine; FAMILY PHYSICIAN Internal Medicine
DX: N19 Unspecified kidney failure (principal); F64.0 Transsexualism; F12.10 Cannabis abuse, uncomplicated; F17.200 Nicotine dependence, unspecified, uncomplicated; R11.0 Nausea; R53.1 Weakness
CPT/HCPCS: 99283; 80048; 80143; 80179; 82077; 85025; 93005